=== PATIENT | male | born 1955 | race Caucasian/White ===

== ENCOUNTER → 2018-02-19 | Outpatient (CLI) | payer MEDICARE, BC ==
[~2018-02-19] MED LIST: ALDACTAZIDE 251 EAC1 PO; ALDACTONE25 MG PO; AMLODIPINE BESYL5 MG PO; ANALGESIC325 MG PO; ASPIRIN325 PO; ASPIRIN81 M2 PO; ATACAND32 MG PO; AVELOX 400 MG400 MG PO; BACTRIM DS TAB1 EACH PO; CEFUROXIME500 MG PO; CHILDREN'S ASPI81 M1 PO; CINNAMON PO; COREG; COREG OR; CYCLOBENZAPRINE10 MG PO; CYMBALTA60 MG PO; DILAUDID2 M1 PO; DOXYCYCLINE 10100 MG PO; DUONEB 2.5-0.5 M3 ML IH; FENTANYL 1100 MCG/HR TP; FISH OIL 1,0001 EAC5 PO; FISHOIL; FLECTOR PATCH1 EA TP; HYDROCODONE-AP1 EAC1 PO; HYDROCODONE-AP1 EACH PO; K-DUR 20 MEQ T20 MEQ PO; KENALOG63 GM TP; KLOR-CON 1010 MEQ PO; LANTUS SC; LANTUS100 UNIT/M SUBQ; LIORESAL 10 MG10 MG PO; LOCOID 0.1% CRE15 GM TP; LYRICA 50 MG50 MG PO; MELATONIN5 M1 PO; MS CONTIN 60 MG60 M1 PO; MS CONTIN15 MG PO; NORVASC10 MG; NORVASC10 MG PO; NOVOLOG100 UNIT/1 SQ; NOVOLOG100 UNIT/1 SUBQ; OMEPRAZOLE20 MG PO; PRADAXA150 MG PO; PRILOSEC 20 MG20 MG PO; RYTHMOL SR225 MG; RYTHMOL225 MG PO; SIMVASTATIN40 MG PO; SORINE 80 MG TA80 M1 PO; TEKTURNA300 MG PO; VITAMIN C W/R1000 MG PO; VITAMIN D250000 UNIT PO; VITAMINC500 PO; VYTORIN 10-401 EACH PO; ZINC; ZINC CHELATE50 MG PO; lyrica PO; morphine PO
== END ==
LOC: M.CT 15:18
DX: K74.60 Unspecified cirrhosis of liver (principal); K57.30 Diverticulosis of large intestine without perforation or abscess without bleeding; R31.0 Gross hematuria; I25.10 Atherosclerotic heart disease of native coronary artery without angina pectoris; I48.91 Unspecified atrial fibrillation; I10 Essential (primary) hypertension; E11.9 Type 2 diabetes mellitus without complications

== ENCOUNTER 2018-02-27 16:41 | Inpatient (IN) | payer MEDICARE, BC ==
[~2018-02-27] VITALS: Ht 182.9 cm; Wt 125.2 kg
[~2018-02-27 16:41] MED LIST changes: -BACTRIM DS TAB1 EACH PO; -CEFUROXIME500 MG PO; -CHILDREN'S ASPI81 M1 PO; -DOXYCYCLINE 10100 MG PO; -LANTUS100 UNIT/M SUBQ; -LIORESAL 10 MG10 MG PO; -MELATONIN5 M1 PO; -MS CONTIN15 MG PO; -NORVASC10 MG; -NOVOLOG100 UNIT/1 SUBQ; -RYTHMOL SR225 MG; -SORINE 80 MG TA80 M1 PO
[2018-02-27 17:35] VITALS: BP 124/65
[2018-02-27] MEDS ORDERED: LIORESAL 10 MG10 MG PO (18:02)
[2018-02-27] MEDS ORDERED: MELATONIN5 M1 PO (18:07)
--- NOTE | 2018-02-27 18:17 | NUR ---
PT DIRECT ADMIT PT ADMITTED FROM PHYSICIANS OFFICE GONE IN FOR ELEVATED BLOOD PRESSURE AND LEFT LEG REDNESS WITH WARMTH AND PAIN, PT IS UP WITH SBA PT C/O DIZZINESS PT IS NOT A FALL RISK WAS EDUCATED TO CALL FOR ASSISTANCE AND NOT AMBULATE BY SELF PT HAS INTERNAL PAIN PUMP WITH MORPHINE PT C/O PAIN CHRONIC IN BACK WHICH WAS FUSED PT RIGHT 2 TOES AMPUTATED PT STATES TAILBONE HAS BEEN REMOVED PT IS ALERT AND ORIENTED X 4 PT HAS NUMBNESS IN FINGERS PT PT STATES WAS RECENTLY PLACED IN FACILITY PERMANTELY WAS CLEANING OUT CLOSET AND HAD DIZZINESS BLOOD PRESSURE ELEVATED AND LEGS STARTED HURTING, PT IN ON BLOOD THINNER FOR IRREGULAR HEART RHYTHMN, WILL CONTINUE TO MONITOR
[2018-02-27 18:57] LABS: HEMATOCRIT 32.9 % (42.0-52.0); HEMOGLOBIN 11.3 gm/dL (14.0-18.0); MCH 30.6 pg (26.0-34.0); MCHC 34.4 g/dL (28.0-37.0); MCV 89.2 fL (80.0-100.0); MPV 8.3 fl. (7.2-11.1); NUCLEATED RBCS 0 /100WBC; PLATELET COUNT* 232 thou/uL (150-400); RBC 3.68 mil/uL (4.50-6.00); RDW-CV 14.6 % (10.5-14.5); WBC 7.6 thou/uL (4.0-11.0)
[2018-02-27 19:03] LABS: CALCIUM 8.3 mg/dL (8.5-10.1); CREATININE 1.7 mg/dL (0.6-1.3); POTASSIUM 3.7 mmol/L (3.5-5.1)
[2018-02-27 19:07] LABS: TOTAL BILIRUBIN 0.8 mg/dL (<0.1-1.0); TOTAL PROTEIN 6.4 g/dL (6.4-8.2)
[2018-02-27 19:24] LABS: ABSOLUTE BASOPHILS 0.2 thou/uL (0.0-0.2); ABSOLUTE EOSINOPHILS 0.8 thou/uL (0.0-0.7); ABSOLUTE LYMPHOCYTES 0.5 thou/uL (0.8-5.3); ABSOLUTE MONOCYTES 0.8 thou/uL (0.0-1.2); ABSOLUTE NEUTROPHILS 5.4 thou/uL (1.6-8.1)
[2018-02-27 19:27] LABS: PLATELET ESTIMATE ADEQUATE
[2018-02-27 20:00] VITALS: BP 104/50
[2018-02-28] VITALS (7 sets, daily range): BP systolic 104–121; BP diastolic 46–64
--- NOTE | 2018-02-28 00:13 | NUR ---
ORDERS OBTAINED FOR BIPAP AFTER PATIENT EXPRESSED CONCERN FOR NOT HAVING REMEBERING TO BRING HOME UNIT HE FURTHER STATES THAT THERE IS NO ONE THAT CAN BRING HIS UNIT TO HIM. WHEN RT ENTERED TO SET UP BIPAP TO HIM THE PATIENT REFUSED STATING HE WAS ONLY GOING TO BE HERE A COUPLE OF DAYS HE WENT ON TO REQUEST O2 NC FOR USE AT NIGHT WILL CONTINUE TO MONITOR
[2018-02-28 05:52] LABS: HEMATOCRIT 33.3 % (42.0-52.0); HEMOGLOBIN 11.4 gm/dL (14.0-18.0); MCH 30.7 pg (26.0-34.0); MCHC 34.2 g/dL (28.0-37.0); MCV 89.8 fL (80.0-100.0); MPV 8.3 fl. (7.2-11.1); RBC 3.7 mil/uL (4.50-6.00); RDW-CV 14.4 % (10.5-14.5); WBC 5.7 thou/uL (4.0-11.0)
[2018-02-28 06:30] LABS: CALCIUM 7.9 mg/dL (8.5-10.1); CREATININE 1.6 mg/dL (0.6-1.3); MAGNESIUM 2.2 mg/dL (1.8-2.4); POTASSIUM 3.6 mmol/L (3.5-5.1)
--- NOTE | 2018-02-28 07:03 | NUR ---
ASSUMED CARE OF PATIENT AT 1900 THE PATIENT REMAINS AFIB/AFLUTTER ON THE MONITOR O2 SAT MAINTAINED ON RA CONTINUES TO BE UP WITH ASSIST OF 1 STANDBY TO THE BATHROOM ROUTINE REGIMEN CONTINUES TO BE EFFECTIVE FOR SX MANAGEMENT PATIENT CONTINUES TOWARDS GOALS EKG OBTAINED DURING INVESTIGATIONS MANAGER DENIES ACUTE CX PAIN,SOA ,N/V SAFETY INTERVENTIONS CONTINUE BED LOWERED WHEELS LOCKED CALL LIGHT IN REACH SIDE RAILS UP REPORT TO BE GIVEN TO ONCBRANDIN RN
--- NOTE | 2018-02-28 13:08 | NUR ---
ASSUMED PT CARE AT 0700 PT IS ALERT AND ORIENTED X 4 PT HAD PAIN MEDS ON PREVIOUS SHIFT PT HAS DIFFICULTY STAYING AWAKE PT COULD NOT REMEMBER BASIC INSTRUCTIONS OR REMEMBER CARE GIVEN SUCH VITAL SIGNS TAKEN OR INSULIN GIVEN, PT HAS INTERNAL PAIN PUMP FILLED WITH MORPHINE PT HAS PO MORPHINE PRN WALKED INTO PT ROOM AND PT WOULD NOT WAKE UP PT IS GROGGY PT HAS BEEN EDUCATED MULTIPLE TIMED ABOUT CALLING STAFF FOR ASSISTANCE BEFORE AMBULATING AND THE PURPOSE OF THE BED ALARM PT IS A FALL RISK PT IS TURNING OFF BED ALARM HAS BEEN EDUCATED THAT PT AND FAMILY ARE NOT TO TURN OFF ALARM PT STATES UNDERSTANDING AND TURNS OFF ALARM, PT DOES NOT FOLLOW INSTRUCTIONS WILL PULL BATHROOM CALL LIGHT AND WALK SELF BACK TO BED, PT REFUSED BIPAP ON PREVIOUS SHIFT AND CPAP WAS LEFT AT HOME PT ASKED FOR PAIN MEDS AND THIS NURSE EDUCATED PT ON PT RESPONSE TO PAIN MANAGEMENT PT UPSET AFTER DISCUSSION WITH PHYSICIAN DESICION WAS MADE NOT TO GIVE MORE NARCOTICS UNTIL PT USES BIPAP OR CPAP WILL CONTINUE TO MONITOR
--- NOTE | 2018-02-28 14:37 | EKG ---
[place] [address] ELECTROCARDIOGRAM REPORT Name: NAVA SANTOS Room: [address] ADM IN M.R.#: [id number] Admission: 02/27/18 Attend Phys: Radha Gandara MD Discharge: Date of : 51 Report #: [id number] THIS REPORT FOR: //name// [facility] Test Date: 2018-02-27 Test Time: 20:57:49 Pat Name: NAVA SANTOS Department: Room: [address] Gender: M Vp Customer Development: BENJAMIN : 1955 Requested By: Radha Gandara Order Number: [id number] Reading MD: Brandin Ward Measurements Intervals [place] Rate: 63 P: [place]: QRS: 25 QRSD: 95 T: 46 QT: 499 QTc: 511 Interpretive Statements Atrial flutter with predominant 4:1 AV block Inferior infarct, acute (LCx) ST elevation, consider anterolateral injury Prolonged QT interval Compared to ECG 08/10/2017 02:59:53 Myocardial infarct finding now present ST (T wave) deviation now present Left ventricular hypertrophy no longer present Electronically Signed On 02-28-2018 14:36:59 CDT by Brandin Ward [email or web address] <ELECTRONICALLY SIGNED> By: Verito Ward MD, FAC 02/28/18 1436 56 56 Verito Ward MD, [facility] /EPI
--- NOTE | 2018-02-28 14:37 | EKG ---
[place] [address] ELECTROCARDIOGRAM REPORT Name: NAVA SANTOS Room: [address] ADM IN M.R.#: [id number] Admission: 02/27/18 Attend Phys: Radha Gandara MD Discharge: Date of : 51 Report #: [id number] THIS REPORT FOR: //name// [facility] Test Date: 2018-02-27 Test Time: 20:58:40 Pat Name: NAVA SANTOS Department: Room: [address] Gender: M Assistant Gm Of Content & Delivery: BENJAMIN : 1955 Requested By: Radha Gandara Order Number: [id number] Reading MD: Brandin Ward Measurements Intervals [place] Rate: 96 P: [place]: QRS: 32 QRSD: 93 T: 50 QT: 503 QTc: 636 Interpretive Statements Atrial fibrillation Ventricular tachycardia, unsustained Inferior infarct, acute (LCx) ST elevation, consider anterolateral injury Prolonged QT interval Compared to ECG 08/10/2017 02:59:53 Ventricular tachycardia now present Myocardial infarct finding now present ST (T wave) deviation now present Atrial flutter no longer present AV block, advanced (high-grade) no longer present Left ventricular hypertrophy no longer present Electronically Signed On 02-28-2018 14:37:09 CDT by Brandin Ward [email or web address] <ELECTRONICALLY SIGNED> By: Verito Wadr MD, [facility] 02/28/181436 57 57 Verito Ward MD, [facility] /EPI
[2018-03-01 04:00] VITALS: BP 133/77
--- NOTE | 2018-03-01 04:01 | NUR ---
ASSUMED PT CARE AT 1930, PT IS A&OX4, PT IS TRACING AFIB,NSR ON THE MONITOR, ON 2L NC. PT IS ON A CONT PULSE OX MONITOR. PT HAS IVF INFUSING PER MAR. PT HAS CELLULITITS TO TO LEFT LOWER LEG. PT C/O OF PAIN TO HIPS, PRN PAIN MEDICATIONS GIVEN PER MAR. PT IS UP WITH ONE TO THE BR. PT HAS IVF IFNUSING PER JAN. BED IN LOW POSITION, CALL LIGHT IN REACH, BED ALARM ON, YELLOW ARM BAND AND SOCKS IN PLACE, HOURLY ROUNDING COMPLETED FOR PT SAFETY THIS SHIFT.
[2018-03-01 09:00] VITALS: BP 115/63
--- NOTE | 2018-03-01 10:55 | NUR ---
ASSUMED PT CARE AT 0730, FULL ASSESMENT DONE CHARTED. PT A/O X4, ANXIOUS AT TIMES. PT C/O PAIN IN LEFT HIP, STATES HE THINKS IT IS SWOLLEN, NO APPARENT SWELLING NOTICED BY THIS NURSE. PT STATES HE IS WANTING TO GO HOME TODAY. PT ON CONTINUOUS O2 MONITOR. SATS 98% ON 2L NC. MEDS GIVEN PER JAN. FALL PRECATUIONS IN PLACE. REVIEWED FALL PRECATUIOINS WITH PT. PT VERBALIZED UNDERSTANDING. WILL CONTINUE WITH PLAN OF CARE.
[2018-03-01 12:02] VITALS: BP 128/69
[2018-03-01] MEDS ORDERED: DOXYCYCLINE 10100 MG PO (12:23)
[2018-03-01 13:46] VITALS: BP 128/69
[2018-04-17] MEDS ORDERED: SORINE 80 MG TA80 M1 PO (09:40)
== END 2018-03-01 15:09 | disposition home or self-care (01) | DRG 300 ==
LOC: M.2W 16:41
PROVIDERS: ADMIT Internal Medicine
DX: I87.2 Venous insufficiency (chronic) (peripheral) (principal); L03.116 Cellulitis of left lower limb; L03.115 Cellulitis of right lower limb; E11.22 Type 2 diabetes mellitus with diabetic chronic kidney disease; G47.33 Obstructive sleep apnea (adult) (pediatric); N18.9 Chronic kidney disease, unspecified; E11.40 Type 2 diabetes mellitus with diabetic neuropathy, unspecified; I87.8 Other specified disorders of veins; E66.01 Morbid (severe) obesity due to excess calories; M19.90 Unspecified osteoarthritis, unspecified site; I27.20 Pulmonary hypertension, unspecified; Z87.891 Personal history of nicotine dependence; Z79.4 Long term (current) use of insulin; Z79.82 Long term (current) use of aspirin; Z79.899 Other long term (current) drug therapy

== ENCOUNTER 2018-03-17 21:10 | Inpatient (IN) | payer MEDICARE, BC ==
[~2018-03-17] VITALS: Ht 182.9 cm; Wt 131.1 kg
[~2018-03-17 21:10] MED LIST changes: +DOXYCYCLINE 10100 MG PO; +LIORESAL 10 MG10 MG PO; +MELATONIN5 M1 PO
[2018-03-17 21:12] VITALS: BP 138/41
[2018-03-17] MEDS ORDERED: VITAMINC500 PO (21:28)
[2018-03-17] MEDS ORDERED: NORVASC10 MG (21:33)
[2018-03-17] MEDS ORDERED: CHILDREN'S ASPI81 M1 PO (21:34)
[2018-03-17] MEDS ORDERED: LIORESAL 10 MG10 MG PO (21:35)
[2018-03-17] MEDS ORDERED: ATACAND32 MG PO (21:35)
[2018-03-17] MEDS ORDERED: PRADAXA150 MG PO (21:36)
[2018-03-17 21:37] LABS: HEMATOCRIT 36.4 % (42.0-52.0); MCH 29.9 pg (26.0-34.0); MCV 90.6 fL (80.0-100.0); MPV 8.2 fl. (7.2-11.1); NUCLEATED RBCS 0 /100WBC; PLATELET COUNT* 262 thou/uL (150-400); RBC 4.02 mil/uL (4.50-6.00); RDW-CV 14.1 % (10.5-14.5); WBC 20.1 thou/uL (4.0-11.0)
[2018-03-17] MEDS ORDERED: CYMBALTA60 MG PO (21:37)
[2018-03-17] MEDS ORDERED: VYTORIN 10-401 EACH PO (21:37)
[2018-03-17] MEDS ORDERED: NOVOLOG100 UNIT/1 SUBQ (21:38)
[2018-03-17] MEDS ORDERED: LANTUS100 UNIT/M SUBQ (21:38)
[2018-03-17] MEDS ORDERED: PRILOSEC 20 MG20 MG PO (21:39)
[2018-03-17] MEDS ORDERED: MELATONIN5 M1 PO (21:39)
[2018-03-17] MEDS ORDERED: RYTHMOL SR225 MG (21:40)
[2018-03-17] MEDS ORDERED: ALDACTAZIDE 251 EAC1 PO (21:41)
[2018-03-17 21:45] LABS: INR 1.4; PROTIME 13.7 Seconds (9.20-11.50)
[2018-03-17 21:51] LABS: CALCIUM 8.5 mg/dL (8.5-10.1); POTASSIUM 4.3 mmol/L (3.5-5.1)
[2018-03-17] MEDS ORDERED: MS CONTIN15 MG PO (21:52)
[2018-03-17 21:57] LABS: TOTAL BILIRUBIN 1.4 mg/dL (<0.1-1.0); TOTAL PROTEIN 6.6 g/dL (6.4-8.2)
[2018-03-17 22:01] LABS: TROPONIN-I LEVEL 0.67 ng/mL (<0.06)
[2018-03-17 22:19] LABS: ABSOLUTE EOSINOPHILS 0.2 thou/uL (0.0-0.7); ABSOLUTE LYMPHOCYTES 0.2 thou/uL (0.8-5.3); ABSOLUTE MONOCYTES 0.6 thou/uL (0.0-1.2); ABSOLUTE NEUTROPHILS 19.1 thou/uL (1.6-8.1)
[2018-03-17 22:20] LABS: PLATELET ESTIMATE ADEQUATE
[2018-03-18] VITALS (16 sets, daily range): BP systolic 98–132; BP diastolic 30–60
--- NOTE | 2018-03-18 01:53 | NUR ---
PT ADMITTED TO ICU ROOM #6 AT 0020 FOR SEPSIS, ACUTE RENAL FAILURE AND NON STEMI. PT ALERT AND ORIENTED X 4. PT DROWSEY AFTER RECIEVING IV MORPHINE AND ATIVAN IN ED. PT RECIEVING IV VANCOMYCIN FOR TREATMENT OF SEPSIS AND CELLULITIS OF LOWER EXTREMITIES. PT RECIEVED FLUID BOLUS IN ED, NORMAL SALINE INFUSING AT 100/HR. PT REPORTS BEING ON ORAL ANTIBIOTICS FOR TWO WEEKS PRIOR TO COMING TO ED. ORAL TEMP ON ARRIVAL 98.7. TEMP IN ED 102.8. PT RESTING QUIETLY IN BED, CALL LIGHT IN REACH.
--- NOTE | 2018-03-18 09:05 | NUR ---
CARDIOLOGY AND PRIMARY HAS ROUNDED ON PT. PT TRANSFERED TO TELE STATUS.HOME MEDS RESTARTED. HOUSE SUP AWARE.
--- NOTE | 2018-03-18 11:02 | NUR ---
WOUND CARE NOTE: CONSULT RECEIVED FOR LE CELLULITIS, SKIN BREAKDOWN. PATIENT PRESENTS WITH 2-3+ PITTING EDEMA TO BILATERAL LEGS WITH REDNESS CIRCUMFIRENTIALLY TO LOWER LEG, MIDDLE. HOT TO TOUCH. SMALL PINPOINT AREA TO THE RIGHT ANTERIOR LEG THAT IS WEEPING SEROUS FLUID. APPLIED OPTIFOAM AG OVER AREA. PLACED LOTION TO INTACT SKIN. PALPABLE PEDAL PULSES, WEAKER ON THE LEFT THAN RIGHT. WHEN APPLYING THE LOTION, PATIENT COMPLAINED OF SIGNIFICANT PAIN TO HIS LEFT CALF. SIGNIFICANT PAIN UPON PALPATION. PHYSICIAN NOTIFIED AND NEW ORDERS PLACED. APPLIED DOUBLE LAYER TUBIGRIPS BILATERALLY, BUT HAD NURSE REMOVE LEFT ONE UNTIL AFTER RESULTS OF ULTRASOUND. EDUCATED PATIENT ON IMPORTANCE OF KEEPING LEGS ELEVATED, STATED HE WAS GOING TO LAY FLAT. EDUCATED ON COMPRESSION THERAPY, COMMUNICATED UNDERSTANDING. RECOMMEND DOUBLE LAYER TUBIGRIP-REMOVE AND REPLACE DAILY ENCOURAGE ELEVATION OF BILATERAL LEGS TIGHT BLOOD GLUCOSE CONTROL ENCOURAGE GOOD NUTRITION/HYDRATION
--- NOTE | 2018-03-18 11:10 | EKG ---
[place] [address] ELECTROCARDIOGRAM REPORT Name: NAVA SANTOS Room: [address]#: [id number] Admission: 03/17/18 Attend Phys: Radha Gandara MD Discharge: 03/21/18 Date of : 51 Report #: [id number] THIS REPORT FOR: //name// [facility] ED Test Date: 2018-03-17 Test Time: 21:18:51 Pat Name: NAVA SANTOS Department: Room: Gender: Mortgage Consultant: TIM Fowler : 1955 Requested By: Mervin Carrion Order Number: [id number] MD: Golden Crenshaw Measurements Intervals [place] Rate: 69 P: -3 GA: 180 QRS: 5 QRSD: 83 T: 33 QT: 463 QTc: 496 Interpretive Statements Sinus rhythm RSR' in V1 or V2, probably normal variant Borderline prolonged QT interval No previous ECG available for comparison Electronically Signed On 03-18-2018 11:10:38 CDT by Golden Crenshaw [email or web address] <ELECTRONICALLY SIGNED> By: Golden Crenshaw MD, [facility] 03/18/18 1110 Golden Crenshaw MD, [facility] /EPI
--- NOTE | 2018-03-18 11:11 | EKG ---
[place] [address] ELECTROCARDIOGRAM REPORT Name: DANIELLENAVA Room: [address] IN [facility]#: [id number] Admission: 03/17/18 Attend Phys: Radha Gandara MD Discharge: 03/21/18 Date of : 51 Report #: [id number] THIS REPORT FOR: //name// [facility] ED Test Date: 2018-03-17 Test Time: 21:20:14 Pat Name: NAVA SANTOS Department: Room: [address] Gender: Judo Teacher: TIM Fowler : 1955 Requested By: Mervin Carrion Order Number: [id number] Jennifer MD: Golden Crenshaw Measurements Intervals [place] Rate: 69 P: 21 MD: 169 QRS: 7 QRSD: 86 T: 30 QT: 453 QTc: 486 Interpretive Statements Sinus rhythm Electronically Signed On 03-18-2018 11:11:02 CDT by Golden Crenshaw [email or web address] <ELECTRONICALLY SIGNED> By: Golden Crenshaw MD, [facility] 03/18/18 1111 212 19 Golden Crenshaw MD, [facility] /EPI
--- NOTE | 2018-03-18 11:53 | NUR ---
FAX SENT TO DR CATHERINE OFFICE PER DR CALVERT REQUEST, AWAITING RETURN FAX,
--- NOTE | 2018-03-18 13:32 | 2DMMODE ---
[place] [address] 2 D/M-MODE ECHOCARDIOGRAM Name: NAVA SANTOS Room: [address] IN [facility]#: [id number] Admission: 03/17/18 Attend Phys: Radha Gandara, Discharge: 03/21/18 Date of : 51 Date of Service: 03/18/18 1332 Report #: [id number] THIS REPORT FOR: //name// APPROVED REPORT Study performed: 03/18/2018 10:07:09 EXAM: Comprehensive 2D, Doppler, and color-flow Echocardiogram Patient Location: In-Patient Room #: 006 Status: routine BSA: 2.49 HR: 111 bpm BP: 109/52 mmHg Rhythm: Atrial Fibrillation Other Information Study Quality: Fair Indications Atrial Fibrillation Non STEMI Sepsis Echo Enhancing Agent Indication: Endocardial border delineation Agent(s) / Amount(s) Used: Optison 3 cc 2D Dimensions IVSd: 12.04 (7-11mm) LVOT Diam: 21.12 (18-24mm) LVDd: 49.67 mm PWd: 12.19 (7-11mm) Ascending Ao: 33.81 (22-36mm) LVDs: 24.65 (25-40mm) Aortic Root: 35.14 mm Volumes Left Atrial Volume (Systole) LA ESV Index: 25.60 mL/m2 Aortic Valve AoV Peak Jhonatan.: 1.59 m/s AO Peak Gr.: 10.10 mmHg LVOT Max P.17 mmHg AO Mean Gr.: 6.01 mmHg LVOT Mean P.93 mmHg LVOT Max V: 1.14 m/s AO V2 VTI: 25.61 cm LVOT Mean V: 0.79 m/[place] [address] 2 D/M-MODE ECHOCARDIOGRAM Name: NAVA SANTOS Room: [address] IN ..#: [id number] Admission: 03/17/18 Attend Phys: Radha Gandara, Discharge: 03/21/18 Date of : 51 Date of Service: 03/18/18 1332 Report #: [id number] ARLENE (VTI): 2.61 cm2 LVOT V1 VTI: 19.06 cm Mitral Valve E/A Ratio: 0.81 MV Decel. Time: 333.39 ms MV E Max Jhonatan.: 0.91 m/s MV PHT: 96.68 ms MVA (PHT): 2.28 cm2 TDI E/Lateral E': 5.06 E/Medial E': 7.58 Medial E' Jhonatan.: 0.12 m/s Lateral E' Jhonatan.: 0.18 m/s Pulmonary Valve PV Peak Jhonatan.: 1.14 m/s PV Peak Gr.: 5.17 mmHg Tricuspid Valve TR Peak Gr.: 26.10 mmHg RVSP: 31.00 mmHg Left Ventricle The left ventricle is normal size. There is normal LV segmental wall motion. Mild concentric left ventricular hypertrophy. Left ventricular systolic function is normal. The left ventricular ejection fraction is within the normal range. LVEF is 65-70%. This study is not technically sufficient to allow evaluation of the LV diastolic function due to atrial fibrillation. Right Ventricle The right ventricle is normal size. The right ventricular systolic function is normal. Atria The left atrium size is normal. The right atrium size is normal. Aortic Valve The aortic valve is normal in structure. No aortic regurgitation is present. There is no aortic valvular stenosis. Mitral Valve The mitral valve is normal in structure. There is no mitral valve regurgitation noted. No evidence of mitral valve stenosis. Tricuspid Valve The tricuspid valve is [place] [address] 2 D/M-MODE ECHOCARDIOGRAM Name: NAVA SANTOS Tash Room: [address]#: [id number] Admission: 03/17/18 Attend Phys: Radha Gandara, Discharge: 03/21/18 Date of : 51 Date of Service: 03/18/18 1332 Report #: [id number] regurgitation. The RVSP is 30-35 mmHg. Pulmonic Valve The pulmonary valve is normal in structure. There is no pulmonic valvular regurgitation. Great Vessels The aortic root is normal in size. IVC is normal in size and collapses with >50% inspiration Pericardium There is no pericardial effusion. <Conclusion> LVEF is 65-70%. Mild concentric left ventricular hypertrophy. <ELECTRONICALLY SIGNED> By: Golden Crenshaw MD, FACC 03/18/18 133 31 31 Golden Crenshaw MD, FACC /INF
--- NOTE | 2018-03-18 13:40 | NUR ---
PT HAS HAD A FEW 3 SEC PAUSES, PT ATTEMPTS TO CONVERT TO SR. SOTALOL WAS GIVEN APPX 1 HOUR AGO.[facility] NURSE MADE AWARE.
--- NOTE | 2018-03-18 14:37 | NUR ---
DR CALVERT HERE TO SEE PT. DR SHOWN PAUSE CAPTURED ON MONITOR. NO NEW ORDERS.
--- NOTE | 2018-03-18 15:18 | EKG ---
[place] [address] ELECTROCARDIOGRAM REPORT Name: NAVA SANTOS Room: [address] IN [facility]#: [id number] Admission: 03/17/18 Attend Phys: Radha Gandara MD Discharge: 03/21/18 Date of : 51 Report #: [id number] THIS REPORT FOR: //name// [facility] Test Date: 2018-03-18 Test Time: 09:52:06 Pat Name: NAVA SANTOS Department: Room: [address] Gender: M Building Energy Consultant: UNK : 1955 Requested By: Golden Crenshaw Order Number: [id number] Jennifer MD: Golden Crenshaw Measurements Intervals [place] Rate: 110 P: [place]: QRS: 14 QRSD: 96 T: 28 QT: 376 QTc: 509 Interpretive Statements Atrial fibrillation Prolonged QT interval Compared to ECG 03/17/2018 21:20:14 Prolonged QT interval now present Sinus rhythm no longer present Electronically Signed On 03-18-2018 15:18:09 CDT by Golden Crenshaw [email or web address] <ELECTRONICALLY SIGNED> By: Golden Crenshaw MD, [facility] 03/18/18 1518 0952 0952 Golden Crenshaw MD, [facility] /EPI
--- NOTE | 2018-03-18 17:45 | NUR ---
PT TRANSPORTED VIA BED TO TELE WITH ALL PERSONAL BELONINGS. PER ORIN MCCORD REQUEST ACCU 155 AND WAS TREATED WITH INSULINE PER JAN. FAXED HOME MED LIST FROM [facility] THAT PT HAD AT HOME TO 2 WILD SR RN AWARE.
--- NOTE | 2018-03-18 18:20 | NUR ---
ICU TRANSFER TO 228 REPORT GIVEN PATIENT TO AND CALL LIGHT IN REACH AND INSTURCTION GIVEN NO REQUESTS AT THIS TIME NO C/O PAIN
[2018-03-19 04:26] VITALS: BP 123/59
[2018-03-19 04:46] LABS: HEMATOCRIT 32.4 % (42.0-52.0); HEMOGLOBIN 11.1 gm/dL (14.0-18.0); MCH 30.9 pg (26.0-34.0); MCHC 34.1 g/dL (28.0-37.0); MCV 90.7 fL (80.0-100.0); MPV 8.2 fl. (7.2-11.1); RBC 3.57 mil/uL (4.50-6.00); RDW-CV 14.3 % (10.5-14.5); WBC 9.8 thou/uL (4.0-11.0)
[2018-03-19 05:02] LABS: ALBUMIN 2.4 g/dL (3.4-5.0); CALCIUM 8.1 mg/dL (8.5-10.1); CREATININE 1.4 mg/dL (0.6-1.3); MAGNESIUM 1.7 mg/dL (1.8-2.4); POTASSIUM 3.8 mmol/L (3.5-5.1); TOTAL BILIRUBIN 1.4 mg/dL (<0.1-1.0); TOTAL PROTEIN 5.7 g/dL (6.4-8.2)
[2018-03-19 05:12] LABS: TROPONIN-I LEVEL 0.6 ng/mL (<0.06)
--- NOTE | 2018-03-19 05:39 | NUR ---
PATIENT RESTED IN BED. PATIENT DID NOT SHOW ACUTE CHANGES, PATEINT DID NOT SHOW SIGNS OF DISTRESS. FALL PRECAUTIONS IN PLACE, BED ALARM ON, CALL LIGHT WITHIN IN REACH.
--- NOTE | 2018-03-19 07:20 | NUR ---
CHANGE OF SHIFT BEDSIDE REPORT GIVEN PATIENT SEEN AT BEDSIDE, ASLEEP ASSUMED PATIENT CARE
--- NOTE | 2018-03-19 07:23 | NUR ---
Patient complain of chest pain. EKG done, doctor ez notified, nitro ordered. Doctor bruce notified, increase morphine ordered, see orders. Patient pain completely relieved with nitro.
[2018-03-19 08:00] VITALS: BP 136/60
--- NOTE | 2018-03-19 09:01 | CON ---
[address] [address] CONSULTATION Name: NAVA SANTOS Room: [address] IN ..#: [id number] Admission: 03/17/18 Attend Phys: Radha Gandara MD Discharge: 03/21/18 Date of : 51 Report #: [id number] THIS REPORT FOR: //name// CC: ABDIAS physician/PCP Radha Duarte DO DATE OF SERVICE: 03/18/2018 HISTORY OF PRESENT ILLNESS: The patient is a 62-year-old white male who I was asked to see in the hospital today because of his history of atrial fibrillation. The history was obtained from the patient. There are minimal old records available. The patient has a long history of hypertension and diabetes. He is also morbidly obese, being 6 feet tall and weighing 270 pounds. 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 The patient has a history of atrial fibrillation in the past. He has been followed by Dr. Hines over at [place]. He apparently has never required cardioversion. He states he did have a heart catheterization and was found to have no significant coronary artery disease. It is unclear whether he had an ablation or not. He states he has been anticoagulated with Pradaxa for the past 3 years. He has also been on sotalol for about 3 years. He does have occasional skipped heartbeat. He has had intermittent atrial fibrillation. He last saw Dr. Hines about 6 months ago. The patient has a history of chronic edema of his feet. He is followed by a midwife. He has had toes amputated in the past. He denies a history of PAD. He recently developed cellulitis and was placed on antibiotics a couple of weeks ago. However, yesterday he felt lightheaded with having chills and fell. He could not get up. An ambulance was called and he was brought here to [place] and admitted. I was asked to see him for further evaluation and treatment. He denies any history of myocardial infarction or chest pain. He has been short of breath. No syncope. PAST MEDICAL HISTORY: Otherwise significant for cholecystectomy, tonsillectomy, back surgery, he has chronic back pain, has a pain pump implanted in the past at [facility] in [place] where he goes to the pain clinic. He has a history of hypertension and diabetes. MEDICATIONS: Consists of the following: He is on amlodipine, aspirin, baclofen, , Pradaxa, Cymbalta, Vytorin, insulin, omeprazole, spironolactone, and sotalol. ALLERGIES: He has intolerance to NIACIN. FAMILY HISTORY: Unknown. He is adopted. SOCIAL HISTORY: He is , lives on a farm with his . Quit smoking years ago, rarely smokes cigar. [place] [address] CONSULTATION Name: NAVA SANTOS Room: [address]#: [id number] Admission: 03/17/18 Attend Phys: Radha Gandara MD Discharge: 03/21/18 Date of : 51 Report #: [id number] REVIEW OF SYSTEMS: He has sleep apnea, uses CPAP. No history of stroke or asthma. He had previous endoscopy, found to have a peptic ulcer. He has had colonoscopy. He had hepatitis C, which was treated in the past. No kidney disease. No cancer. No psychiatric illness. PHYSICAL EXAMINATION: GENERAL: Revealed a large middle-aged male, lying in bed. He appeared in no acute distress. VITAL SIGNS: He had a blood pressure on admission last night of 130/60, pulse is 80, and temperature 102. HEENT: He was anicteric. Conjunctivae pink. Mucous members appear moist. NECK: Veins do not appear distended. No carotid bruits. CHEST: Clear to auscultation. HEART: Regular rate and rhythm, no significant murmurs. ABDOMEN: Obese, soft, nontender. EXTREMITIES: He had edema below the mid tibial area. His anterior tibial areas were erythematous. Dorsalis pedis pulse 1+ on the left, cannot be palpated on the right. SKIN: Warm, dry. NEUROLOGIC: He is very slow moving. PSYCHIATRIC: His mood appeared somewhat depressed. His ECG on admission showed a sinus rhythm. There was no ST or T-wave change. His workup last night in the emergency room, he had a portable chest x-ray that showed normal heart size and clear lung chavez. CT scan of the head without contrast showed no acute abnormality. His lab work, sodium 135, BUN 19, creatinine was 2.0. Bilirubin 1.4, albumin 3.0. Troponin 0.67. BNP 1303. White blood cell count 20,000, hemoglobin 12. IMPRESSION AND RECOMMENDATIONS: 1. History of atrial fibrillation. The patient has been chronically anticoagulated with Pradaxa, although I would decrease the dose to 75 mg twice daily because of his kidney disease. I would decrease sotalol to every 24 hours because of his renal insufficiency. I will attempt to obtain records from his beauty advisor at [place]. 2. Dae-UL-yhxaftdmz myocardial infarction. I will attempt to obtain records as the patient stated he had a previous heart catheterization at [facility]. No history of angina. I would not recommend cardiac catheterization or stress testing at this time. We would obtain an echocardiogram. 3. Diabetes. 4. Hypertension. The patient has been on a calcium jorge, ARB. 5. Diabetes. 6. Cellulitis. 7. Kidney disease. 8. History of hepatitis C. [address] [address] CONSULTATION Name: NAVA SANTOS Room: [address]#: [id number] Admission: 03/17/18 Attend Phys: Radha Gandara MD Discharge: 03/21/18 Date of : 51 Report #: [id number] 9. Obesity. 10. Cellulitis. <ELECTRONICALLY SIGNED> By: Golden Crenshaw MD, FACC 03/19/18 0901 0843 [id number] Crenshaw MD, FACC /nt
--- NOTE | 2018-03-19 09:38 | EKG ---
[place] [address] ELECTROCARDIOGRAM REPORT Name: NAVA SANTOS Tash Room: [address] IN [facility]#: [id number] Admission: 03/17/18 Attend Phys: Radha Gandara MD Discharge: 03/21/18 Date of : 51 Report #: [id number] THIS REPORT FOR: //name// [facility] Test Date: 2018-03-19 Test Time: 06:25:46 Pat Name: NAVA SANTOS Department: Room: [address] Gender: Veneer Jointer: AJ : 1955 Requested By: Golden Crenshaw Order Number: [id number] Reading : Deejay Soliman Measurements Intervals [place] Rate: 70 P: -1 VT: 205 QRS: 3 QRSD: 96 T: 17 QT: 405 QTc: 437 Interpretive Statements Sinus rhythm Compared to ECG 03/18/2018 09:52:06 Atrial fibrillation no longer present Prolonged QT interval no longer present Electronically Signed On 03-19-2018 9:38:29 CDT by Deejay Soliman [email or web address] <ELECTRONICALLY SIGNED> By: Deejay Soliman MD, [facility] 03/19/18 0938 0625 Deejay Soliman MD, [facility] /EPI
[2018-03-19 11:56] VITALS: BP 148/65
[2018-03-19 12:26] VITALS: BP 148/65
[2018-03-19 12:48] LABS: CALCIUM 8.7 mg/dL (8.5-10.1); CREATININE 1.3 mg/dL (0.6-1.3); POTASSIUM 3.7 mmol/L (3.5-5.1)
[2018-03-19 15:14] VITALS: BP 121/49
--- NOTE | 2018-03-19 15:36 | NUR ---
SW met with pt to complete initial assessment, introduce self and CM role. Pt sleepy but alert enough to answer questions and oriented. Pt lives at home alone. Pt [place]. Pt has 2 daughters who pt says are supportive. Pt said that his goal is to be home independent and feels that he will be safe. Pt has no history of HH or SNF. Pt does not have any DME. Pt said that he might need a cane. SW/CM to continue to follow.
--- NOTE | 2018-03-19 18:52 | NUR ---
PATIENT REMAINS A AND O X 4 SB 50S THIS PM RA GOOD APPETITE LAST BM UNKNOWN GOOD UO, UNMEASURED UP WITH 1 ASSIST BLE RED CELLULITIS IV L FA 22 GA SL ACCUCHECKS 132/156/169 ORDERS FOR NPO AFTER [facility] CATH 5/4 C/O PAIN BUT SB WILL NEED TO WAIT FOR HR TO INCREASE AND PATIENT INFORMED, WILL FOLLOW UP ON REF SCDS
[2018-03-19 20:00] VITALS: BP 117/61
[2018-03-20] VITALS (13 sets, daily range): BP systolic 109–148; BP diastolic 39–86
--- NOTE | 2018-03-20 01:38 | NUR ---
PATIENT COMPLAIN OF CHEST PAIN , SCALE 9 OUT 0F 10. TWO NITROGLYCERIN WERE GIVEN. PATIENT STATES PAIN IS COMPLETELY RESOLVED AFTER SECOND NITROGLYCERIN.
[2018-03-20 04:26] LABS: HEMATOCRIT 31.8 % (42.0-52.0); HEMOGLOBIN 10.7 gm/dL (14.0-18.0); MCH 30.5 pg (26.0-34.0); MCHC 33.8 g/dL (28.0-37.0); MCV 90.3 fL (80.0-100.0); RBC 3.52 mil/uL (4.50-6.00); RDW-CV 14.3 % (10.5-14.5)
--- NOTE | 2018-03-20 04:27 | NUR ---
PATIENT RESTED IN BED. CHEST PAIN WAS TREATED. EKG DONE, PATIENT BRADYCARDIA, 48-52 HEART RATE. PATIENT IS NPO, PATIENT TO RECIEVE CATH LATER TOADY. FALL PRECAUTIONS IN PLACE, CALL LIGHT WITHIN REACH, HOURLY ROUNDING OBSERVED, BED ALARM ON.
[2018-03-20 05:12] LABS: ALBUMIN 2.6 g/dL (3.4-5.0); ALKALINE PHOSPHATASE 91 U/L (46-116); ANION GAP 5 mmol/L (7-16); BUN 19 mg/dL (7-18); CALCIUM 8.4 mg/dL (8.5-10.1); CHLORIDE 99 mmol/L (98-107); CHOLESTEROL 83 mg/dL (<200); CO2 28 mmol/L (21-32); CREATININE 1.3 mg/dL (0.6-1.3); GLUCOSE 114 mg/dL (70-99); HDL CHOLESTEROL 20 mg/dL (>40); LDL CHOLESTEROL 44 mg/dL (<100); MAGNESIUM 1.9 mg/dL (1.8-2.4); POTASSIUM 3.9 mmol/L (3.5-5.1); SGOT 26 U/L (15-37); SGPT 26 U/L (30-65); SODIUM 132 mmol/L (136-145); TC:HDL 4.2 Ratio (Not establshd); TOTAL BILIRUBIN 1.1 mg/dL (<0.1-1.0); TOTAL PROTEIN 6.2 g/dL (6.4-8.2); TRIGLYCERIDE 95 mg/dL (<150); VLDL 19 mg/dL (<40)
[2018-03-20 05:15] LABS: SERUM ASSESSMENT CLEAR
--- NOTE | 2018-03-20 11:04 | EKG ---
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 : 1955 Requested By: Radha Gandara Order Number: [id number] MD: Golden Crenshaw Measurements Intervals [place] Rate: 51 P: -14 [place]: 174 QRS: 4 QRSD: 97 T: 16 QT: 503 QTc: 464 Interpretive Statements Sinus bradycardia Baseline wander in lead(s) I,II,III,aVR,aVL,V3,V4 Compared to ECG 03/19/2018 06:25:46 rate slowed Electronically Signed On 03-20-2018 11:03:50 CDT by Golden Crenshaw [email or web address] <ELECTRONICALLY SIGNED> By: Golden Crenshaw MD, [facility] 03/20/18 1103 0240 0240 Golden Crenshaw MD, [facility] /EPI
--- NOTE | 2018-03-20 11:06 | EKG ---
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 03/20/18 1106 0955 0955 Golden Crenshaw MD, FACC /EPI
--- NOTE | 2018-03-20 15:27 | CARD ---
[address] [address] CARDIAC CATH REPORT Name: NAVA SANTOS Tash Room: [address] IN [facility].#: [id number] Admission: 03/17/18 Attend Phys: Radha Gandara MD Discharge: 03/21/18 Date of : 51 Report #: [id number] THIS REPORT FOR: //name// APPROVED REPORT Study performed: 03/20/2018 11:03:28 Patient Details Patient Status: IN Room #: The patient is a 62 year-old male Event Personnel Golden Crenshaw Marketing Program Manager, Belem Bernard RN RN, Ally Mason RTR Monitor, Rosie Curiel Procedures Performed Art Access - R radial artery Left Heart Cath w/LT VGram [id number] LHCLV , FFR Indication Non-STEMI , Atrial fibrillation Risk Factors Coronary Artery Disease Admission/Lab Medications/Medications given during procedure Heparin Unfract. Procedure Narrative The patient was brought electively to the Cardiac Catheterization Laboratory and was prepped and draped in a sterile manner. The right wrist was infiltrated with 2% Lidocaine subcutaneous anesthesia. A Slender Glidesheath sheath was inserted into the right radial artery. Coronary angiography was performed using coronary diagnostic catheters. The right coronary system was accessed and visualized with a Diagnostic catheter. The left coronary system was accessed and visualized with a Diagnostic catheter. The left ventricle was accessed and visualized with a Diagnostic catheter. Left ventricular/Aortic Valve gradient assessed via catheter pullback. Left ventriculogram was performed in BALLARD projection. Closure device was deployed with a 6 Fr vascband. The patient tolerated the procedure well and there were no complications associated with the procedure. There was no hematoma. Intraoperative [place] [address] CARDIAC CATH REPORT Name: NAVA SANTOS Room: [address]#: [id number] Admission: 03/17/18 Attend Phys: Radha Gandara MD Discharge: 03/21/18 Date of : 51 Report #: [id number] Sedation start time: 1137 Case end Time: 1210 Fentanyl 25 mcg Versed 2 mg Dose: 981 mGy Contrast Type and Amount: Visipaque 135 ml Coronary Angiography The patient's coronary anatomy is right dominant. Diagnostic Cath Left Main 0% stenosis LAD 0% stenosis Diagonal 1 medium sized vessel with a 50% mid stenosis Circumflex 40% mid stenosis OM2 medium sized vessel with an ostial 60% stenosis Right Coronary 50% proximal, 50% mid, and 30% distal stenosis Left Ventriculography The left ventricle is normal in size with normal contractility. The left ventricular ejection fraction is estimated to be 55-60%. Left ventricular wall motion abnormalities are not present. There is no mitral insufficiency. Hemodynamics The aortic pressure is 130/53 mmHg with a mean of 83 mmHg. The left ventricular pressure is 127/8 mmHg with a mean of mmHg. The left ventricular end diastolic pressure is 13 mmHg. There was no gradient across the aortic valve upon pullback. Pullback from the left ventricle to the aorta revealed no gradient across the aortic valve. Conclusion Mild cad manifested by a 50% stenosis noted in a diagonal branch of the lad, 50% stenosis noted of the proximal and mid rca, and a 60% ostial stenosis noted of the second marginal branch of the circumflex Recommendations Aggressive Medical Therapy <ELECTRONICALLY SIGNED> By: Golden Crenshaw MD, [facility] 03/20/18 1527 1527 1527Dashona Crenshaw MD, FACC /INF
--- NOTE | 2018-03-20 18:51 | NUR ---
HERMAN HAD CARDIAC CATH TODAY WITH NO INTERVENTION. VITAL SIGN STABLE. RIGHT WRIST ACCESS WITH NO S/S OF HEMATOMA OR BLEEDING. HOURLY ROUNDING COMPETD FOR PATIENT SAFETY
[2018-03-21] VITALS: BP 141/60
--- NOTE | 2018-03-21 02:51 | NUR ---
ASSUMED CARE OF PT AT 1900. PT IS ALERT AND ORIENTED. VSS. PERRLA. PT IS UP WITH STANDBY ASSIST. PTS HEART RATE IS IN THE 40'S AND 50'S. PT IS IN SINUS BRADYCARDIA. PT IS SLEEPING COMFORTABLY IN BED. RESPIRATIONS ARE EVEN AND NONLABORED. WILL CONTINUE TO MONITOR PT.
[2018-03-21 04:00] VITALS: BP 138/58
[2018-03-21 04:39] LABS: HEMATOCRIT 31.5 % (42.0-52.0); HEMOGLOBIN 10.8 gm/dL (14.0-18.0); MCH 30.8 pg (26.0-34.0); MCHC 34.2 g/dL (28.0-37.0); MPV 8.1 fl. (7.2-11.1); RBC 3.5 mil/uL (4.50-6.00); RDW-CV 14.2 % (10.5-14.5)
[2018-03-21 04:50] LABS: CALCIUM 8.5 mg/dL (8.5-10.1); CREATININE 1.2 mg/dL (0.6-1.3); POTASSIUM 3.8 mmol/L (3.5-5.1); TROPONIN-I LEVEL 0.35 ng/mL (<0.06)
[2018-03-21 08:00] VITALS: BP 136/68
[2018-03-21] MEDS ORDERED: BACTRIM DS TAB1 EACH PO (09:56)
[2018-03-21] MEDS ORDERED: SORINE 80 MG TA80 M1 PO (09:56)
--- NOTE | 2018-03-21 11:09 | NUR ---
Received order from physician to arrange home health. Pt given choices and is agreeable with [facility]. Called [facility] and faxed orders. No other needs identified. Home Health to begin on Friday.
[2018-03-21 11:36] VITALS: BP 136/68
[2018-03-21 12:28] VITALS: BP 148/65
--- NOTE | 2018-03-21 14:02 | NUR ---
ASSUMED CARE OF PT THIS AM ASSESSED AND DOCUMENTED. PT ON CARDIAC MONITER TRACING SB HR 51. PT IS A&O WITH NO C/O PAIN. VSS WNL. PT HAS BEEN ON ROOM AIR. PT WAS D/C'D TO HOME. ALL CONSULTS OK WITH D/C. EDUCATION GIVEN RE FOLLOW-UPS, MEDICATIONS, AND DRS ORDERS. SCRIPTS GIVEN. D/C CARDIAC MONITER AND IV. ALL BELONGINGS PACKED UP AND LEFT WITH PT ACCOMPANIED BY STAFF AND FRIEND.
[2018-04-17] MEDS ORDERED: SORINE 80 MG TA80 M1 PO (09:40)
== END 2018-03-21 14:00 | disposition home health service (06) | DRG 871 ==
LOC: M.ERS 21:10 → M.TBA-ER 22:41 → M.ERS 22:41 → M.ICU 23:14 → M.2W 23:14 → M.TBA-ER 23:14 → M.ICU 03-18 00:25 → M.2W 03-18 18:06
PROVIDERS: Family Medicine; Internal Medicine Cardiovascular Disease; ADMIT Internal Medicine
PROC: B2151ZZ Fluoroscopy of Left Heart using Low Osmolar Contrast (ICD-10-PCS; principal; 2018-03-20)
PROC: 4A023N7 Measurement of Cardiac Sampling and Pressure, Left Heart, Percutaneous Approach (ICD-10-PCS; principal; 2018-03-20)
PROC: B2111ZZ Fluoroscopy of Multiple Coronary Arteries using Low Osmolar Contrast (ICD-10-PCS; principal; 2018-03-20)
DX: A41.9 Sepsis, unspecified organism (principal); I21.4 Non-ST elevation (NSTEMI) myocardial infarction; N17.9 Acute kidney failure, unspecified; L03.116 Cellulitis of left lower limb; L03.115 Cellulitis of right lower limb; E78.00 Pure hypercholesterolemia, unspecified; I25.10 Atherosclerotic heart disease of native coronary artery without angina pectoris; I48.91 Unspecified atrial fibrillation; E11.22 Type 2 diabetes mellitus with diabetic chronic kidney disease; N18.9 Chronic kidney disease, unspecified; I87.8 Other specified disorders of veins; G89.29 Other chronic pain; M54.9 Dorsalgia, unspecified; G47.33 Obstructive sleep apnea (adult) (pediatric); E66.9 Obesity, unspecified; B19.20 Unspecified viral hepatitis C without hepatic coma; Z68.39 Body mass index [BMI] 39.0-39.9, adult; I25.2 Old myocardial infarction; Z90.49 Acquired absence of other specified parts of digestive tract; Z87.891 Personal history of nicotine dependence; Z86.73 Personal history of transient ischemic attack (TIA), and cerebral infarction without residual deficits; Z79.4 Long term (current) use of insulin; Z79.82 Long term (current) use of aspirin; Z79.899 Other long term (current) drug therapy; Z88.8 Allergy status to other drugs, medicaments and biological substances

== ENCOUNTER 2018-03-28 23:56 | Emergency (ER) | payer MEDICARE, BC ==
[~2018-03-28] VITALS: Ht 182.9 cm; Wt 125.2 kg
[~2018-03-28 23:56] MED LIST changes: +BACTRIM DS TAB1 EACH PO; +CHILDREN'S ASPI81 M1 PO; +LANTUS100 UNIT/M SUBQ; +MS CONTIN15 MG PO; +NORVASC10 MG; +NOVOLOG100 UNIT/1 SUBQ; +RYTHMOL SR225 MG; +SORINE 80 MG TA80 M1 PO
[2018-03-29 01:04] VITALS: BP 156/59
[2018-04-17] MEDS ORDERED: SORINE 80 MG TA80 M1 PO (09:40)
== END 2018-03-29 01:04 | disposition home or self-care (01) ==
LOC: M.ERS 23:56
DX: M25.511 Pain in right shoulder (principal); E11.9 Type 2 diabetes mellitus without complications; E78.00 Pure hypercholesterolemia, unspecified; F17.210 Nicotine dependence, cigarettes, uncomplicated; Z88.8 Allergy status to other drugs, medicaments and biological substances; Z86.73 Personal history of transient ischemic attack (TIA), and cerebral infarction without residual deficits; Z79.4 Long term (current) use of insulin

== ENCOUNTER → 2018-04-17 | Outpatient (CLI) | payer MEDICARE, BC ==
[~2018-04-17] MED LIST changes: +CEFUROXIME500 MG PO
[2018-04-17 08:36] VITALS: BP 140/56
--- NOTE | 2018-04-17 10:12 | EKG ---
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
== END ==
LOC: M.CL 08:22
DX: I48.91 Unspecified atrial fibrillation (principal); Z53.8 Procedure and treatment not carried out for other reasons; I12.9 Hypertensive chronic kidney disease with stage 1 through stage 4 chronic kidney disease, or unspecified chronic kidney disease; N18.6 End stage renal disease; E78.00 Pure hypercholesterolemia, unspecified; E11.22 Type 2 diabetes mellitus with diabetic chronic kidney disease; I25.2 Old myocardial infarction; G47.33 Obstructive sleep apnea (adult) (pediatric); Z98.890 Other specified postprocedural states; Z87.891 Personal history of nicotine dependence; Z79.899 Other long term (current) drug therapy; Z88.8 Allergy status to other drugs, medicaments and biological substances

== ENCOUNTER 2018-05-29 02:26 | Emergency (ER) | payer MEDICARE, BC ==
[~2018-05-29] VITALS: Ht 182.9 cm; Wt 124.7 kg
[~2018-05-29 02:26] MED LIST changes: -CEFUROXIME500 MG PO
[2018-05-29 05:31] VITALS: BP 144/66
== END 2018-05-29 05:32 | disposition home or self-care (01) ==
LOC: M.ERS 02:26
DX: S51.812A Laceration without foreign body of left forearm, initial encounter (principal); S09.8XXA Other specified injuries of head, initial encounter; E11.9 Type 2 diabetes mellitus without complications; E78.00 Pure hypercholesterolemia, unspecified; F17.210 Nicotine dependence, cigarettes, uncomplicated; Z86.73 Personal history of transient ischemic attack (TIA), and cerebral infarction without residual deficits; Z79.4 Long term (current) use of insulin; Z88.8 Allergy status to other drugs, medicaments and biological substances; W07.XXXA Fall from chair, initial encounter; Y93.89 Activity, other specified; Y92.89 Other specified places as the place of occurrence of the external cause; Y99.8 Other external cause status

== ENCOUNTER 2018-06-19 23:38 | Inpatient (IN) | payer MEDICARE, BC ==
[~2018-06-19] VITALS: Ht 182.9 cm; Wt 122.5 kg
[2018-06-19 23:39] VITALS: BP 139/49
[2018-06-20 00:23] LABS: CALCIUM 7.9 mg/dL (8.5-10.1); CREATININE 1.7 mg/dL (0.6-1.3); POTASSIUM 3.9 mmol/L (3.5-5.1)
[2018-06-20 00:28] LABS: ALBUMIN 3.4 g/dL (3.4-5.0); TOTAL PROTEIN 7.2 g/dL (6.4-8.2)
[2018-06-20 00:36] LABS: HEMATOCRIT 35.5 % (42.0-52.0); HEMOGLOBIN 11.5 gm/dL (14.0-18.0); MCH 28.2 pg (26.0-34.0); MCHC 32.4 g/dL (28.0-37.0); MPV 8.1 fl. (7.2-11.1); NUCLEATED RBCS 0 /100WBC; PLATELET COUNT* 266 thou/uL (150-400); RBC 4.08 mil/uL (4.50-6.00); RDW-CV 15.1 % (10.5-14.5)
[2018-06-20 01:22] LABS: URINE BILIRUBIN NEGATIVE (Negative); URINE BLOOD NEGATIVE (Negative); URINE CLARITY CLEAR; URINE COLOR YELLOW; URINE GLUCOSE-RANDOM NEGATIVE (Negative); URINE KETONES NEGATIVE (Negative); URINE LEUKOCYTES-REFLEX NEGATIVE (Negative); URINE NITRITE-REFLEX NEGATIVE (Negative); URINE PROTEIN NEGATIVE (Negative); URINE SPECIFIC GRAVITY <= 1.005 (1.005-1.030); URINE UROBILINOGEN 0.2 E.U./dl (0.2-1.0)
[2018-06-20 01:48] LABS: ABSOLUTE LYMPHOCYTES 0.5 thou/uL (0.8-5.3); ABSOLUTE MONOCYTES 0.5 thou/uL (0.0-1.2); PLATELET ESTIMATE ADEQUATE
[2018-06-20 01:49] LABS: ANISOCYTOSIS 1+; POLYCHROMASIA 1+
[2018-06-20 03:00] VITALS: BP 108/75
[2018-06-20 05:00] VITALS: BP 110/76
--- NOTE | 2018-06-20 05:20 | NUR ---
RECEIVED REPORT FROM VENKATA MCCORD AT ED.PT TRANSFERRED TO 205 VIA CART. PT A&OX4. ADMISSION HX & PHYSICAL ASSESSMENT COMPLETED AND CHARTED. VSS.PT ON RA WITH 94% O2 SAT. PT ON MED/SURG.PT UP WITH 1 ASSIST. IV LINE PATENT & INTACT. STARTED VANCOMYCIN PER JAN. CELLULITIS ON BOTH LOWER EXTREMETIES NOTED AND PHOTOS WERE TAKEN. PT COMPLAINED OF BACK & FOOT PAIN WITH PAIN SCALE OF 10/10. PT TEMP 101.3.PAIN MEDS & ANTIPYRETIC MED GIVEN PER JAN. ORIENTED TO ROOM & CALL LIGHT. CALL LIGHT WITHIN REACH. BED IN LOW POSITION. BED ALARM ON.
--- NOTE | 2018-06-20 06:19 | NUR ---
PT COMPLAINED OF FINGER PAIN WITH PAIN SCALE OF 10/10. PT WAS SCREAMING AND STATED CAN'T HANDLE THE PAIN-DR. GARCIA INFORMED WITH NEW ORDERS. PAIN MEDS GIVEN PER JAN.
[2018-06-20 08:00] VITALS: BP 93/53
--- NOTE | 2018-06-20 10:54 | NUR ---
ASSUMED RESPONSIBILITY OF PT THIS AM PT IS ALERT AND ORIENTED BUT IMPULSIVE AND YELLS OUT FREQUENTLY IN PAIN PT WILL STATE HE IS IN EXCRUTIATING PAIN WHILE CLOSING EYES AND FALLING ASLEEP STATES HIS BILAT HANDS ARE TINGLING AND BURNING WATCH TAKEN OFF D/T CUTTING OFF CIRCULATION WHICH IS THE HAND HE IS COMPLAINING OF MOST PT DOES NOT HAVE MUCH PAIN IN BACK PT HAD MOM CALL UP HERE AT DESK AND ASK QUESTIONS BUT WAS NOT IN INFORMATION ASKED PT FOR PERMISSION TO GIVE INFORMATION AND HE SAID YES BUT HE WAS ON THE PHONE WITH HER AT THAT TIME PT BECOMES VERY AGITATED AND STATES WE ARE NOT HELPING HIM AT ALL EXPLAINED TO PT WHAT THE PLAN WAS AND PT SEEMED TO CALM DOWN A BIT WILL CONT TO MONITOR
--- NOTE | 2018-06-20 12:30 | NUR ---
MET WITH PT AND HIS MOTHER/DYANA TO DISCUSS HOME SITUATION/DC PLANNING. PT LIVES ALONE AT THIS TIME, HIS IS IN [facility] GETTING REHAB HE STATES. HE IS HOPEFUL SHE WILL BE ABLE TO COME HOME SOON. PT USES CPAP AT HOME, OTHERWISE STATES HE HAS BEEN INDEPENDENT AND ACTIVE. HE HAS HAD HH IN THE PAST WITH [facility]. STATES HE HAD BEEN MANAGING HIS CELLULITIS AT HOME BUT CAME TO THE HOSPITAL D/T 'PAIN.' HIS IS DPOA. HE WANT TO BE SURE HIS MOTHER IS ABLE TO GET INFO AND ON HIS LIST. PT PLANS TO RETURN HOME AT DC. WILL FOLLOW
[2018-06-20 15:29] VITALS: BP 127/52
--- NOTE | 2018-06-20 17:55 | NUR ---
PT HAS BEEN RESTING SINCE FENTANYL IV CAME ON BOARD. PT STATES 'THIS HELPS ME SO MUCH I'M ACTUALLY SLEEPING' STILL COMPLAINS OF PAIN TO BILAT HANDS AND BACK PT IS DROWSY BUT RESPONDS APPROPRIATELY MUCH MORE CALM THAN FROM EARLIER
[2018-06-20 20:00] VITALS: BP 137/52
[2018-06-21 04:29] VITALS: BP 144/50
--- NOTE | 2018-06-21 04:33 | NUR ---
ASSUMED CARE OF PT AFTER REPORT AT 1930. PT A&OX4. VSS. PHYSICAL ASSESSMENT COMPLETED AND CHARTED. PT ON RA/ CPAP @ NIGHT WITH 96% O2 SAT. PT ON MEDSURG. PT REPORTED UP WITH 1 ASSIST BUT REMAINS ON BED ALL NIGHT. MRSA NASAL SWAB SENT TO LAB. PT COMPLAINED OF HAND & LOWER BACK PAIN WITH PAIN SCALE OF 9/10-PAIN MEDS GIVEN PER JAN. CALL LIGHT WITHIN REACH. BED IN LOW POSITION.
[2018-06-21 07:45] VITALS: BP 136/59
--- NOTE | 2018-06-21 07:45 | NUR ---
ASSUMED PT. CARE AND RECEIVED REPORT AT 0730. PT. A/OX4, VSS, PT. MED/SURG STATUS. ON RA @ 95%, WITH CPAP WHILE SLEEPING. PT. REPORTS LOWER BACK PAIN AND HAND TINGLING/NUMBNESS. FULL ASSESSMENT COMPLETED, REFER TO CHARTING. LE REDNESS REMAINS. PT. REPORTS ARMBANDS ARE TIGHTER THIS MORNING AND SOME UPPER ARM SWELLING IS PRESENT. CALL LIGHT IN REACH, WILL CONTINUE WITH PLAN OF CARE.
[2018-06-21 16:10] VITALS: BP 127/34
--- NOTE | 2018-06-21 18:36 | NUR ---
PT. STABLE THROUGH OUT SHIFT. IVF'S DC'D AND PT. GIVEN IV LASIX WITH GOOD OUTPUT. TREATED WITH PO PAIN MEDS ORDERED, GIVEN IV MED X1. PT. STATES ALL HIS HAND PAIN/NUMBNESS IS FROM THE PHYSICAL THERAPY SESSION AND MANIPULATION OF HIS NECK. PT. APPETITE POOR, HAD TO ENCOURAGE TO EAT LUNCH, WAS GIVEN INSULIN AND DID NOT WANT TO EAT AFTER. HOURLY ROUNDING COMPLETED THROUGH OUT THE DAY FOR PT. SAFETY.
[2018-06-21 20:00] VITALS: BP 112/45; BP 114/50
[2018-06-22 00:10] VITALS: BP 124/51
--- NOTE | 2018-06-22 03:28 | NUR ---
RESTING MOST OF NIGHT. CONT. ABX FOR CELLULITIS LE. ID HERE AT BEGINNING OF SHIFT. PATIENT RECEIVED IV PAIN MEDS ALONG WITH SCHEDULED MEDS. DENIES ANY FURTHER COMPLAINTS OF PAIN, DISCOMFORT OR SOA. CONT. WITH PLAN OF CARE AT THIS TIME.
[2018-06-22 04:13] VITALS: BP 159/92
[2018-06-22 05:07] LABS: ABSOLUTE BASOPHILS 0.1 thou/uL (0.0-0.2); ABSOLUTE EOSINOPHILS 0.6 thou/uL (0.0-0.7); ABSOLUTE LYMPHOCYTES 0.8 thou/uL (0.8-5.3); ABSOLUTE MONOCYTES 0.7 thou/uL (0.0-1.2); ABSOLUTE NEUTROPHILS 3.8 thou/uL (1.6-8.1); BASOPHILS 0.9 %; EOSINOPHILS 9.8 %; HEMATOCRIT 33.4 % (42.0-52.0); HEMOGLOBIN 10.9 gm/dL (14.0-18.0); LYMPHOCYTES 13.9 %; MCH 28.8 pg (26.0-34.0); MCHC 32.8 g/dL (28.0-37.0); MONOCYTES 12.4 %; NUCLEATED RBCS 0 /100WBC; PLATELET COUNT* 231 thou/uL (150-400); RBC 3.79 mil/uL (4.50-6.00); RDW-CV 15.5 % (10.5-14.5)
[2018-06-22 08:00] VITALS: BP 136/57
--- NOTE | 2018-06-22 11:29 | NUR ---
RECEVIED REPORT FROM DONNA MCCORD. ASSUMED CARE OF PT AROUND 0730. PT A&OX4, VSS, O2 SAT 97% ON HOME CPAP - PT WEARING DURING SLEEP. PT M/S STATUS. AM ASSESSMENT AND VITALS COMPLETED CHARTED. IV TO RIGHT WIRST INTACT AND SALINE LOCKED, FLUSHES WELL. PT REPORTS BACK AND BILATERAL HAND PAIN AT 6/10. IV PAIN MEDICATION GIVEN WITH RELIEF. PT STATES RIGHT HAND IS NUMB/TINGLING, SOME SWELLING NOTED. BILTERAL TUBIGRIPS PLACED. PT USING URINAL FREQUENTLY POST LASIX ADMINISTRATION. PT REFUSED BREAKFAST THIS AM, HELD RAPID ACTING INSULIN. PT CURRENTLY RESTING IN BED. BLE ELEVATED ON TWO PILLOWS. CALL LIGHT IS WITHIN REACH. HOURLY ROUNDING PERFORMED. FALL PRECAUTIONS ARE IN PLACE. WCTM.
--- NOTE | 2018-06-22 16:35 | NUR ---
PT TRANSFERING TO 116. REPORT GIVEN TO MARTINA MCCORD. PT REMAINS A&OX4. VSS. O2 SAT >90% ON RA. PT CONTINUING TO DIURESE, OUTPUT GOOD. PT APPETITE POOR. BILATERAL TUBIGRIPS REMAIN IN PLACE. ALL BELONGINGS GATHERED AND SENT DOWNSTAIRS WITH THE PT, INCLUDING ITEMS FROM PT ACCESS BOX. PT TRANSFERED TO ROOM 116 IN CHAIR WITH NURSING STAFF.
--- NOTE | 2018-06-22 18:16 | NUR ---
PT DOWN FROM TELE DENIES ANY PAIN NO CONCERNS AT THIS TIME ALERT AND ORIENTED SBA TO CHAIR DOES NOT WALK OFTEN
[2018-06-22 20:05] VITALS: BP 144/59
[2018-06-23] VITALS: BP 138/66
[2018-06-23 04:00] VITALS: BP 142/52
--- NOTE | 2018-06-23 05:07 | NUR ---
PATIENT REMAINS ALERT AND ORIENTED X4 THROUGHOUT SHIFT. VITAL SIGNS STABLE ON ROOM AIR. IV PATENT IN THE RIGHT WRIST SALINE LOCKED. CPAP HAS BEEN BROUGHT FROM HOME AND PATIENT APPLIED THROUGHOUT NIGHT. TRANSFERS WITH ASSIST X1 WITH THE GAITBELT TO THE RESTOOM. PAIN MANAGED WITH PO MEDICATION PER ORDERS. DENIES NAUSEA. REPOSITIONING SELF IN BED. RESTING COMFORTABLY THROUGHOUT NIGHT. HOURLY ROUNDING COMPLETE. CALL LIGHT WITHIN REACH. NURSING WILL CONTINUE TO MONITOR.
[2018-06-23] MEDS ORDERED: CEFUROXIME500 MG PO (07:54)
[2018-06-23 09:15] VITALS: BP 159/72
[2018-06-23 11:06] VITALS: BP 159/72
--- NOTE | 2018-06-23 12:00 | NUR ---
PT.TO DISCHARGE TODAY WITH HOME HEALTH NURSING. DISCUSSED WITH PT. HE HAD [facility]AR AND WANTS TO USE THEM AGAIN. HE SAID HE SEES AT [facility]. SPOKE WITH CAROLEE/JOSIE AND SHE ACCEPTED PT.ON SERVICE FOR HOME HEALTH. TOLD HER HE WAS GOING HOME TODAY. FAXED HER FACE SHEET,H&P,DISCHARGE SUMMARY AND FACE 2 FACE FORM. PT.SAID HIS RIDE WILL BE HERE ABOUT 3:00PM.
[2018-06-23 13:24] VITALS: BP 159/72
[2018-06-23 15:07] LABS: GLYCOHEMOGLOBIN (HGB A1C) 6.2 % (4.8-5.6)
--- NOTE | 2018-06-23 16:22 | NUR ---
ASSUMED CARE OF PATIENT AFTER MORNING REPORT. ALERT AND ORIENTED X4. ASSESSMENT COMPLETED AND CHARTED. VSS ON ROOM AIR. NO COMPLAINTS OF PAIN, NAUSEA OR SOA THROUGHOUT SHIFT. ANTIBIOTICS ADMINISTERED ORDERED, IV AND PO. BLOOD SUGARS MONITORED AND INSULIN GIVEN ORDERED. LOWER EXTREMITIES CLEANED AND REDRESSED WITH TUBIGRIPS THIS AFTERNOON WITH BACTROBAN APPLIED. HOME HEALTH SET UP FOR DRESSING CHANGES. PATIENT DISCHARGED AT 1615. ALL PERSONAL BELONGINGS, DISCHARGE PAPERWORK AND PRESCRPTION SENT WITH PATIENT.
--- NOTE | 2018-06-23 22:04 | CON ---
[address] [address] CONSULTATION Name: NAVA SANTOS Room: [address] IN [facility].#: [id number] Admission: 06/20/18 Attend Phys: Che Tomlinson Discharge: 06/23/18 Date of : 51 Report #: [id number] THIS REPORT FOR: //name// CC: ABDIAS physician/PCP Adrien Serrano DATE OF SERVICE: 06/21/2018 CONSULTATION: Infectious diseases. 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 The patient describes falling from a chair and hitting his head on a piece of furniture, which wrenched his neck. He has chronic low back pain, which has required a lumbar fusion and implantable morphine pump. The patient said he was getting physical therapy and the therapist did "deep tissue release" and afterwards, his pain flared up to the point he had to call 911 after the pain would not respond to all the medicine he had at home. When the patient arrived in the hospital, he was quite lethargic from the morphine, but still in excruciating pain. He was noted to have a fever and leukocytosis. Infectious disease consultation was requested. PAST MEDICAL HISTORY: Significant for diabetes, hypertension, hyperlipidemia. The patient has a history of atrial fibrillation, myocardial infarction, anxiety, depression, chronic back pain. The patient has a history of implantation of a morphine, baclofen pump. He says he is due for refill in approximately 3 days, although he was told he has about a 2-week al period before the pump is empty. He has L4-L5- S1 fusion in the back with an S1-S2 diskectomy. ALLERGIES: THE PATIENT HAS AN ALLERGY TO NIACIN. MEDICATION RECONCILIATION: Current medications are as follows: Spironolactone 50 mg daily, furosemide 80 mg IV push daily, ceftriaxone 15 mL 1 g daily, melatonin 5 mg at bedtime, Lipitor 40 mg at bedtime, apixaban 5 mg b.i.d., fentanyl 25 mcg IV q. 2 p.r.n., sotalol 160 mg b.i.d., Bactrim 1 tablet b.i.d., duloxetine 60 mg daily, ascorbic acid 500 mg daily, pregabalin 150 mg daily, insulin sliding scale, pantoprazole 40 mg daily, morphine, MS Contin 15 mg q. 12, baclofen 10 mg q.i.d. p.r.n., morphine IR 50 mg q.4h. p.r.n. FAMILY HISTORY: Noncontributory. SOCIAL HISTORY: The patient is . He did work for [employer], but has been disabled by back pain. The patient said he was a heavy smoker in the past, but quit many years ago. He went from cigarettes or cigars. Cigars became too expensive, so he quit. He did take up a pipe a few years ago, but quit [address] [place] [address] CONSULTATION Name: NAVA SANTOS Room: [address]#: [id number] Admission: 06/20/18 Attend Phys: Che Tomlinson Discharge: 06/23/18 Date of : 51 Report #: [id number] ago all tobacco use. The patient describes his alcohol consumption is moderate. He admits to past use of marijuana and amphetamines, but nothing recently. He says his morphine contract requires him to be free of other substances. REVIEW OF SYSTEMS: GENERAL: The patient is not complaining of fevers, chills, sweats. ENT: The patient denies headache. NECK: He has pain in the neck radiating with a firing pain to both hands, left greater than right. PULMONARY: The patient denies cough, chest pain, shortness of breath. CARDIOVASCULAR: He denies angina, syncope, palpitation. He denies nausea, vomiting, diarrhea, constipation. Denies urinary complaints. EXTREMITIES: He has the pain in his hands. He has also had pain in his low back going to his legs, which are more chronic. He says that he has had erythema and warmth for his left leg "for a while." He has had a chronic wound on the lateral left calf for several months. PHYSICAL EXAMINATION: GENERAL: The patient appears his stated age, alert, oriented, comfortable, not in any distress. VITAL SIGNS: Show maximum temperature 101.3. The patient was afebrile at the time of my examination. SKIN: Shows moderate venous stasis changes in both lower legs. The left leg has a superimposed acute cellulitis from the ankle to about two-thirds away to the knee. There is 1+ edema. There is 2+ heat. Moderate tenderness. There is a small 2 x 3 cm superficial wound in the lateral mid calf. The right foot demonstrates a surgical absence of the second and third toes with lateral deviation of the great toe creating a prominent bunion. ENT: Negative. NECK: Supple. HEART: Heart sounds normal. LUNGS: Clear. ABDOMEN: Belly obese (280 pounds), soft, not tender. LABORATORY DATA: Sodium is 127, potassium 3.9, chloride 93, bicarbonate 29, BUN 14, creatinine 1.7. Glucose has gone from 211 to 121. Liver function tests show mild elevation of alkaline phosphatase at 134. White count was 17,000, hemoglobin 11.5, platelet 266,000. Arterial and venous Dopplers are negative. Chest x-ray is negative. CT of the head is negative. CT of the spine is negative. IMPRESSION: Cellulitis associated with chronic venous stasis. I concur with Rocephin 1 g daily. We will use elevation and compression to help with the stasis. We will use Bactroban [place] [address] CONSULTATION Name: NAVA SANTOS Room: [address] IN [facility].#: [id number] Admission: 06/20/18 Attend Phys: Che Tomlinson Discharge: 06/23/18 Date of : 51 Report #: [id number] I appreciate the opportunity of input in the care of this pleasant gentleman. It is important we keep track of his pain pump as if it runs out of baclofen, there is a strong rebound effect. Unfortunately, with the pain pump, we will not be able to do MRI scanning of the back to further evaluate his back pain. For now, we will do antibiotics and local care of venous stasis with cellulitis. <ELECTRONICALLY SIGNED> By: Tra West MD 06/23/18 2204 [id number] esther Villa
== END 2018-06-23 16:15 | disposition home health service (06) | DRG 682 ==
LOC: M.ERS 23:38 → M.2W 06-20 01:15 → M.TBA-ER 06-20 01:15 → M.2W 06-20 02:23 → M.ORTHSURG 06-22 16:31
PROVIDERS: Emergency Medicine; Internal Medicine Infectious Disease; ADMIT Internal Medicine
DX: N17.9 Acute kidney failure, unspecified (principal); G93.41 Metabolic encephalopathy; R65.11 Systemic inflammatory response syndrome (SIRS) of non-infectious origin with acute organ dysfunction; F11.20 Opioid dependence, uncomplicated; L03.116 Cellulitis of left lower limb; E87.1 Hypo-osmolality and hyponatremia; E11.649 Type 2 diabetes mellitus with hypoglycemia without coma; E11.40 Type 2 diabetes mellitus with diabetic neuropathy, unspecified; I25.2 Old myocardial infarction; F41.9 Anxiety disorder, unspecified; F32.9 Major depressive disorder, single episode, unspecified; G89.29 Other chronic pain; I25.10 Atherosclerotic heart disease of native coronary artery without angina pectoris; I87.8 Other specified disorders of veins; I10 Essential (primary) hypertension; E78.5 Hyperlipidemia, unspecified; I48.91 Unspecified atrial fibrillation; M47.816 Spondylosis without myelopathy or radiculopathy, lumbar region; E78.00 Pure hypercholesterolemia, unspecified; T36.95XA Adverse effect of unspecified systemic antibiotic, initial encounter; W07.XXXA Fall from chair, initial encounter; Z79.4 Long term (current) use of insulin; Y92.89 Other specified places as the place of occurrence of the external cause; Z86.73 Personal history of transient ischemic attack (TIA), and cerebral infarction without residual deficits; Z79.2 Long term (current) use of antibiotics; Z79.899 Other long term (current) drug therapy; Z88.8 Allergy status to other drugs, medicaments and biological substances; Z87.891 Personal history of nicotine dependence; Y93.89 Activity, other specified; Y99.8 Other external cause status; Z79.01 Long term (current) use of anticoagulants

== ENCOUNTER → 2018-06-30 | Outpatient (CLI) | payer MEDICARE, BC ==
[~2018-06-30] MED LIST changes: +CEFUROXIME500 MG PO
== END ==
LOC: M.WC 12:32
DX: E11.622 Type 2 diabetes mellitus with other skin ulcer (principal); L97.811 Non-pressure chronic ulcer of other part of right lower leg limited to breakdown of skin; L97.821 Non-pressure chronic ulcer of other part of left lower leg limited to breakdown of skin; I87.2 Venous insufficiency (chronic) (peripheral); I10 Essential (primary) hypertension; I48.91 Unspecified atrial fibrillation; I25.10 Atherosclerotic heart disease of native coronary artery without angina pectoris; I48.92 Unspecified atrial flutter; E66.01 Morbid (severe) obesity due to excess calories; J44.9 Chronic obstructive pulmonary disease, unspecified; F17.200 Nicotine dependence, unspecified, uncomplicated; F32.9 Major depressive disorder, single episode, unspecified; F19.10 Other psychoactive substance abuse, uncomplicated; F12.90 Cannabis use, unspecified, uncomplicated; Z68.36 Body mass index [BMI] 36.0-36.9, adult

== ENCOUNTER → 2018-07-07 | Outpatient (CLI) | payer MEDICARE, BC | LOC: M.WC 05:12 | DX: E11.622 Type 2 diabetes mellitus with other skin ulcer (principal); L97.811 Non-pressure chronic ulcer of other part of right lower leg limited to breakdown of skin; L97.821 Non-pressure chronic ulcer of other part of left lower leg limited to breakdown of skin; I87.2 Venous insufficiency (chronic) (peripheral); I10 Essential (primary) hypertension; I48.91 Unspecified atrial fibrillation; I48.92 Unspecified atrial flutter; I25.10 Atherosclerotic heart disease of native coronary artery without angina pectoris; J44.9 Chronic obstructive pulmonary disease, unspecified; K21.9 Gastro-esophageal reflux disease without esophagitis; E66.01 Morbid (severe) obesity due to excess calories; F32.9 Major depressive disorder, single episode, unspecified; F14.10 Cocaine abuse, uncomplicated; F17.200 Nicotine dependence, unspecified, uncomplicated; F12.10 Cannabis abuse, uncomplicated; Z89.421 Acquired absence of other right toe(s) ==

== ENCOUNTER → 2018-07-15 | Outpatient (CLI) | payer MEDICARE, BC | LOC: M.WC 04:36 | DX: E11.622 Type 2 diabetes mellitus with other skin ulcer (principal); L97.821 Non-pressure chronic ulcer of other part of left lower leg limited to breakdown of skin; L97.811 Non-pressure chronic ulcer of other part of right lower leg limited to breakdown of skin; I87.2 Venous insufficiency (chronic) (peripheral); I10 Essential (primary) hypertension; E66.01 Morbid (severe) obesity due to excess calories; I48.91 Unspecified atrial fibrillation; I48.92 Unspecified atrial flutter; I25.10 Atherosclerotic heart disease of native coronary artery without angina pectoris; J44.9 Chronic obstructive pulmonary disease, unspecified; F17.200 Nicotine dependence, unspecified, uncomplicated; F12.90 Cannabis use, unspecified, uncomplicated; F14.10 Cocaine abuse, uncomplicated; Z91.81 History of falling ==

== ENCOUNTER → 2018-09-16 | Outpatient (CLI) | payer MEDICARE, BC ==
[2018-09-16 15:26] LABS: CREATININE 1.2 mg/dL (0.6-1.3)
== END ==
LOC: M.LAB 15:00 → M.CT 16:00
PROVIDERS: Family Medicine
DX: R04.2 Hemoptysis (principal)

== ENCOUNTER 2018-11-18 15:29 | Emergency (ER) | payer MEDICARE, BC ==
[~2018-11-18] VITALS: Ht 182.9 cm; Wt 133.8 kg
[2018-11-18] MEDS ORDERED: PRADAXA75 MG PO (16:01)
[2018-11-18] MEDS ORDERED: KEFLEX500 M1 PO (17:17)
[2018-11-18] MEDS ORDERED: BACTRIM DS TAB1 EACH PO (17:17)
[2018-11-18 17:26] VITALS: BP 122/51
== END 2018-11-18 17:26 | disposition home or self-care (01) ==
LOC: M.ERS 15:29
DX: S81.812A Laceration without foreign body, left lower leg, initial encounter (principal); E11.9 Type 2 diabetes mellitus without complications; E78.00 Pure hypercholesterolemia, unspecified; F17.210 Nicotine dependence, cigarettes, uncomplicated; Z86.73 Personal history of transient ischemic attack (TIA), and cerebral infarction without residual deficits; Z79.4 Long term (current) use of insulin; Z88.8 Allergy status to other drugs, medicaments and biological substances; W18.39XA Other fall on same level, initial encounter; Y93.89 Activity, other specified; Y92.89 Other specified places as the place of occurrence of the external cause; Y99.8 Other external cause status

== ENCOUNTER → 2018-11-23 | Outpatient (CLI) | payer MEDICARE, BC ==
[~2018-11-23] MED LIST changes: +KEFLEX500 M1 PO; +PRADAXA75 MG PO
== END ==
LOC: M.WC 00:58
DX: E11.622 Type 2 diabetes mellitus with other skin ulcer (principal); L97.821 Non-pressure chronic ulcer of other part of left lower leg limited to breakdown of skin; E66.01 Morbid (severe) obesity due to excess calories; I87.2 Venous insufficiency (chronic) (peripheral); I10 Essential (primary) hypertension; I48.91 Unspecified atrial fibrillation; I48.92 Unspecified atrial flutter; I25.10 Atherosclerotic heart disease of native coronary artery without angina pectoris; J44.9 Chronic obstructive pulmonary disease, unspecified; M19.90 Unspecified osteoarthritis, unspecified site; F32.9 Major depressive disorder, single episode, unspecified; F17.200 Nicotine dependence, unspecified, uncomplicated; Z68.41 Body mass index [BMI] 40.0-44.9, adult; Z89.421 Acquired absence of other right toe(s); Z79.4 Long term (current) use of insulin

== ENCOUNTER → 2018-11-26 | Outpatient (CLI) | payer MEDICARE, BC | LOC: M.WC 05:16 | DX: E11.622 Type 2 diabetes mellitus with other skin ulcer (principal); L97.821 Non-pressure chronic ulcer of other part of left lower leg limited to breakdown of skin; E66.01 Morbid (severe) obesity due to excess calories; I87.2 Venous insufficiency (chronic) (peripheral); I10 Essential (primary) hypertension; I48.91 Unspecified atrial fibrillation; I48.92 Unspecified atrial flutter; I25.10 Atherosclerotic heart disease of native coronary artery without angina pectoris; J44.9 Chronic obstructive pulmonary disease, unspecified; M19.90 Unspecified osteoarthritis, unspecified site; F17.200 Nicotine dependence, unspecified, uncomplicated; F32.9 Major depressive disorder, single episode, unspecified; Z68.41 Body mass index [BMI] 40.0-44.9, adult; Z95.818 Presence of other cardiac implants and grafts; Z89.421 Acquired absence of other right toe(s); Z79.4 Long term (current) use of insulin ==

== ENCOUNTER → 2018-11-30 | Outpatient (CLI) | payer MEDICARE, BC | LOC: M.WC 03:21 | DX: E11.622 Type 2 diabetes mellitus with other skin ulcer (principal); L97.822 Non-pressure chronic ulcer of other part of left lower leg with fat layer exposed; E66.01 Morbid (severe) obesity due to excess calories; I87.2 Venous insufficiency (chronic) (peripheral); I10 Essential (primary) hypertension; I48.91 Unspecified atrial fibrillation; I48.92 Unspecified atrial flutter; I25.10 Atherosclerotic heart disease of native coronary artery without angina pectoris; J44.9 Chronic obstructive pulmonary disease, unspecified; M19.90 Unspecified osteoarthritis, unspecified site; F32.9 Major depressive disorder, single episode, unspecified; F17.200 Nicotine dependence, unspecified, uncomplicated; Z68.41 Body mass index [BMI] 40.0-44.9, adult; Z95.818 Presence of other cardiac implants and grafts; Z89.421 Acquired absence of other right toe(s) ==

== ENCOUNTER → 2018-12-07 | Outpatient (CLI) | payer MEDICARE, BC | LOC: M.WC 04:36 | DX: E11.622 Type 2 diabetes mellitus with other skin ulcer (principal); L97.822 Non-pressure chronic ulcer of other part of left lower leg with fat layer exposed; E66.01 Morbid (severe) obesity due to excess calories; I87.2 Venous insufficiency (chronic) (peripheral); I10 Essential (primary) hypertension; I48.91 Unspecified atrial fibrillation; I48.92 Unspecified atrial flutter; I25.10 Atherosclerotic heart disease of native coronary artery without angina pectoris; J44.9 Chronic obstructive pulmonary disease, unspecified; M19.90 Unspecified osteoarthritis, unspecified site; F17.200 Nicotine dependence, unspecified, uncomplicated; F32.9 Major depressive disorder, single episode, unspecified; Z95.818 Presence of other cardiac implants and grafts; Z89.421 Acquired absence of other right toe(s); Z68.41 Body mass index [BMI] 40.0-44.9, adult ==

== ENCOUNTER → 2018-12-14 | Outpatient (CLI) | payer MEDICARE, BC | LOC: M.WC 00:18 | DX: E11.622 Type 2 diabetes mellitus with other skin ulcer (principal); L97.821 Non-pressure chronic ulcer of other part of left lower leg limited to breakdown of skin; E66.01 Morbid (severe) obesity due to excess calories; I87.2 Venous insufficiency (chronic) (peripheral); I10 Essential (primary) hypertension; I48.91 Unspecified atrial fibrillation; I48.92 Unspecified atrial flutter; I25.10 Atherosclerotic heart disease of native coronary artery without angina pectoris; J44.9 Chronic obstructive pulmonary disease, unspecified; M19.90 Unspecified osteoarthritis, unspecified site; F32.9 Major depressive disorder, single episode, unspecified; F17.200 Nicotine dependence, unspecified, uncomplicated; Z68.41 Body mass index [BMI] 40.0-44.9, adult; Z95.818 Presence of other cardiac implants and grafts; Z89.421 Acquired absence of other right toe(s) ==

== ENCOUNTER → 2018-12-31 | Outpatient (CLI) | payer MEDICARE, BC | LOC: M.WC 05:29 | DX: E11.622 Type 2 diabetes mellitus with other skin ulcer (principal); L97.822 Non-pressure chronic ulcer of other part of left lower leg with fat layer exposed; E66.01 Morbid (severe) obesity due to excess calories; I87.2 Venous insufficiency (chronic) (peripheral); I10 Essential (primary) hypertension; I48.91 Unspecified atrial fibrillation; I48.92 Unspecified atrial flutter; I25.10 Atherosclerotic heart disease of native coronary artery without angina pectoris; J44.9 Chronic obstructive pulmonary disease, unspecified; M19.90 Unspecified osteoarthritis, unspecified site; F32.9 Major depressive disorder, single episode, unspecified; F17.200 Nicotine dependence, unspecified, uncomplicated; Z68.41 Body mass index [BMI] 40.0-44.9, adult; Z95.818 Presence of other cardiac implants and grafts; Z89.421 Acquired absence of other right toe(s) ==

== ENCOUNTER → 2019-01-14 | Outpatient (CLI) | payer MEDICARE, BC | LOC: M.WC 04:59 | DX: E11.621 Type 2 diabetes mellitus with foot ulcer (principal); L97.511 Non-pressure chronic ulcer of other part of right foot limited to breakdown of skin; E11.622 Type 2 diabetes mellitus with other skin ulcer; L97.822 Non-pressure chronic ulcer of other part of left lower leg with fat layer exposed; E66.01 Morbid (severe) obesity due to excess calories; I10 Essential (primary) hypertension; I87.2 Venous insufficiency (chronic) (peripheral); I48.91 Unspecified atrial fibrillation; I48.92 Unspecified atrial flutter; I25.10 Atherosclerotic heart disease of native coronary artery without angina pectoris; J44.9 Chronic obstructive pulmonary disease, unspecified; M19.90 Unspecified osteoarthritis, unspecified site; F32.9 Major depressive disorder, single episode, unspecified; F17.200 Nicotine dependence, unspecified, uncomplicated; Z89.421 Acquired absence of other right toe(s); Z68.41 Body mass index [BMI] 40.0-44.9, adult; Z95.818 Presence of other cardiac implants and grafts ==

== ENCOUNTER → 2019-01-20 | Outpatient (CLI) | payer MEDICARE, BC | LOC: M.WC 04:39 | DX: E11.622 Type 2 diabetes mellitus with other skin ulcer (principal); L97.822 Non-pressure chronic ulcer of other part of left lower leg with fat layer exposed; E11.621 Type 2 diabetes mellitus with foot ulcer; L97.811 Non-pressure chronic ulcer of other part of right lower leg limited to breakdown of skin; L84 Corns and callosities; E66.01 Morbid (severe) obesity due to excess calories; I87.2 Venous insufficiency (chronic) (peripheral); I10 Essential (primary) hypertension; I48.91 Unspecified atrial fibrillation; I48.92 Unspecified atrial flutter; I25.10 Atherosclerotic heart disease of native coronary artery without angina pectoris; J44.9 Chronic obstructive pulmonary disease, unspecified; M19.90 Unspecified osteoarthritis, unspecified site; F17.200 Nicotine dependence, unspecified, uncomplicated; F32.9 Major depressive disorder, single episode, unspecified; Z68.41 Body mass index [BMI] 40.0-44.9, adult; Z95.818 Presence of other cardiac implants and grafts; Z89.421 Acquired absence of other right toe(s) ==

== ENCOUNTER → 2019-01-27 | Outpatient (CLI) | payer MEDICARE, BC | LOC: M.WC 05:31 | DX: E11.621 Type 2 diabetes mellitus with foot ulcer (principal); L97.512 Non-pressure chronic ulcer of other part of right foot with fat layer exposed; L03.116 Cellulitis of left lower limb; E66.01 Morbid (severe) obesity due to excess calories; I10 Essential (primary) hypertension; I48.91 Unspecified atrial fibrillation; I48.92 Unspecified atrial flutter; I25.10 Atherosclerotic heart disease of native coronary artery without angina pectoris; I87.2 Venous insufficiency (chronic) (peripheral); J44.9 Chronic obstructive pulmonary disease, unspecified; M20.11 Hallux valgus (acquired), right foot; M19.90 Unspecified osteoarthritis, unspecified site; F32.9 Major depressive disorder, single episode, unspecified; F17.200 Nicotine dependence, unspecified, uncomplicated; Z68.41 Body mass index [BMI] 40.0-44.9, adult; Z95.818 Presence of other cardiac implants and grafts ==

== ENCOUNTER → 2019-02-03 | Outpatient (CLI) | payer MEDICARE, BC | LOC: M.WC 09:31 | DX: E11.621 Type 2 diabetes mellitus with foot ulcer (principal); L97.512 Non-pressure chronic ulcer of other part of right foot with fat layer exposed; L03.116 Cellulitis of left lower limb; E11.69 Type 2 diabetes mellitus with other specified complication; M86.8X7 Other osteomyelitis, ankle and foot; E11.42 Type 2 diabetes mellitus with diabetic polyneuropathy; E66.01 Morbid (severe) obesity due to excess calories; I87.2 Venous insufficiency (chronic) (peripheral); I10 Essential (primary) hypertension; I48.91 Unspecified atrial fibrillation; I48.92 Unspecified atrial flutter; I25.10 Atherosclerotic heart disease of native coronary artery without angina pectoris; J44.9 Chronic obstructive pulmonary disease, unspecified; M19.90 Unspecified osteoarthritis, unspecified site; Z68.41 Body mass index [BMI] 40.0-44.9, adult; F17.200 Nicotine dependence, unspecified, uncomplicated; F32.9 Major depressive disorder, single episode, unspecified; Z95.818 Presence of other cardiac implants and grafts; Z89.421 Acquired absence of other right toe(s) ==

== ENCOUNTER → 2019-02-10 | Outpatient (CLI) | payer MEDICARE, BC | LOC: M.WC 04:16 | DX: E11.621 Type 2 diabetes mellitus with foot ulcer (principal); L97.512 Non-pressure chronic ulcer of other part of right foot with fat layer exposed; L03.116 Cellulitis of left lower limb; E11.69 Type 2 diabetes mellitus with other specified complication; M86.8X7 Other osteomyelitis, ankle and foot; E11.42 Type 2 diabetes mellitus with diabetic polyneuropathy; E66.01 Morbid (severe) obesity due to excess calories; I87.2 Venous insufficiency (chronic) (peripheral); I10 Essential (primary) hypertension; I48.91 Unspecified atrial fibrillation; I48.92 Unspecified atrial flutter; I25.10 Atherosclerotic heart disease of native coronary artery without angina pectoris; J44.9 Chronic obstructive pulmonary disease, unspecified; M19.90 Unspecified osteoarthritis, unspecified site; F17.200 Nicotine dependence, unspecified, uncomplicated; F32.9 Major depressive disorder, single episode, unspecified; Z68.41 Body mass index [BMI] 40.0-44.9, adult; Z95.818 Presence of other cardiac implants and grafts; Z89.421 Acquired absence of other right toe(s) ==

== ENCOUNTER → 2019-02-17 | Outpatient (CLI) | payer MEDICARE, BC | LOC: M.WC 05:41 | DX: E11.621 Type 2 diabetes mellitus with foot ulcer (principal); L97.512 Non-pressure chronic ulcer of other part of right foot with fat layer exposed; L03.116 Cellulitis of left lower limb; I87.2 Venous insufficiency (chronic) (peripheral); E11.42 Type 2 diabetes mellitus with diabetic polyneuropathy; E66.01 Morbid (severe) obesity due to excess calories; I10 Essential (primary) hypertension; I48.91 Unspecified atrial fibrillation; I48.92 Unspecified atrial flutter; I25.10 Atherosclerotic heart disease of native coronary artery without angina pectoris; J44.9 Chronic obstructive pulmonary disease, unspecified; M19.90 Unspecified osteoarthritis, unspecified site; F32.9 Major depressive disorder, single episode, unspecified; F17.200 Nicotine dependence, unspecified, uncomplicated; Z95.818 Presence of other cardiac implants and grafts; Z89.421 Acquired absence of other right toe(s); Z68.41 Body mass index [BMI] 40.0-44.9, adult ==

== ENCOUNTER → 2019-02-24 | Outpatient (CLI) | payer MEDICARE, BC | LOC: M.WC 08:25 | DX: E11.621 Type 2 diabetes mellitus with foot ulcer (principal); L97.512 Non-pressure chronic ulcer of other part of right foot with fat layer exposed; I87.2 Venous insufficiency (chronic) (peripheral); L03.116 Cellulitis of left lower limb; I10 Essential (primary) hypertension; E66.01 Morbid (severe) obesity due to excess calories; I48.91 Unspecified atrial fibrillation; I48.92 Unspecified atrial flutter; I25.10 Atherosclerotic heart disease of native coronary artery without angina pectoris; J44.9 Chronic obstructive pulmonary disease, unspecified; F17.200 Nicotine dependence, unspecified, uncomplicated; Z68.41 Body mass index [BMI] 40.0-44.9, adult ==

== ENCOUNTER → 2019-03-10 | Outpatient (CLI) | payer MEDICARE, BC | LOC: M.WC 03-03 05:09 | DX: E11.621 Type 2 diabetes mellitus with foot ulcer (principal); L97.512 Non-pressure chronic ulcer of other part of right foot with fat layer exposed; L03.116 Cellulitis of left lower limb; I87.2 Venous insufficiency (chronic) (peripheral); I10 Essential (primary) hypertension; E11.42 Type 2 diabetes mellitus with diabetic polyneuropathy; E66.01 Morbid (severe) obesity due to excess calories; I48.91 Unspecified atrial fibrillation; I48.92 Unspecified atrial flutter; I25.10 Atherosclerotic heart disease of native coronary artery without angina pectoris; J44.9 Chronic obstructive pulmonary disease, unspecified; M19.90 Unspecified osteoarthritis, unspecified site; F17.200 Nicotine dependence, unspecified, uncomplicated; F32.9 Major depressive disorder, single episode, unspecified; Z68.41 Body mass index [BMI] 40.0-44.9, adult; Z95.818 Presence of other cardiac implants and grafts; Z89.421 Acquired absence of other right toe(s) ==

== ENCOUNTER → 2019-03-17 | Day surgery (SDC) | payer MEDICARE, BC ==
[~2019-03-17] MED LIST changes: +CENTRUM SILVER1 EAC2 PO; +CLINDAMYCIN HC300 MG PO; +LYRICA150 MG PO; +MORPHINE SULFAT15 M3 PO
--- NOTE | ~2019-03-17 | OP ---
[address] [address] OPERATIVE REPORT Name: NAVA SANTOS Room: [facility].#: [id number] Admission: 03/17/19 Attend Phys: Varinder Santoro DPM Discharge: Date of : 51 Report #: [id number] THIS REPORT FOR: //name// CC: Varinder Masters SURGEON: Varinder Santoro DPM PREOPERATIVE DIAGNOSES: 1. Ulceration with soft tissue infection, right foot, at lateral base of the hallux. 2. Hammertoe deformities to the right fourth and fifth toes. ANESTHESIA: General LMA. INJECTABLES: 30 mL of 1:1 mixture of 0.5% Marcaine plain and 1% lidocaine plain. ESTIMATED BLOOD LOSS: Roughly 3 mL. HEMOSTASIS: Right ankle pneumatic tourniquet at 300 mmHg. SPECIMENS: Right first, fourth and fifth toes. CULTURES: Soft tissue, aerobic and anaerobic, right foot. SUTURES: 3-0 nylon, nylon. COMPLICATIONS: None. DESCRIPTION OF PROCEDURE: The patient was brought to the OR and placed on the table supine with induction of general LMA anesthesia. A well-padded right ankle pneumatic tourniquet was placed. A local anesthetic block was given to the foot and the extremity was prepped and draped aseptically. After exsanguination and inflation of the tourniquet, a #10 blade was used to create a circumferential incision around the right great toe joint and the toe was disarticulated at the first metatarsophalangeal joint with removal of the tibial and fibular sesamoids. There was no abscess or signs of infection to the first metatarsophalangeal joint or surrounding deep fascial tissue. The extensor and flexor tendons were transected. Electrocautery was utilized for hemostasis. The skin margins were remodeled to facilitate primary closure. The wound was irrigated with sterile saline with bacitracin irrigant and dried. At this time, attention was directed to the right fourth and fifth toes and a circumferential incision was created around them and they were disarticulated at their metatarsophalangeal joints. The old healed incision where the prior second and third toes were removed was excised because the skin was involuted. I excised the skin so that there was a large fish mouth type incision [place] [address] OPERATIVE REPORT Name: NAVA SANTOS Room: [facility] Darron#: [id number] Admission: 03/17/19 Attend Phys: Vairnder Santoro DPM Discharge: Date of : 51 Report #: [id number] with a better coaptation along the entire incision. The plantar skin flap was mobilized dorsally from the hallux to the fifth toe amputation site and sutured with nylon and 3-0 nylon in simple interrupted fashion. The tourniquet was deflated and normal vascular return was present. The foot was cleansed and dressed with Betadine-soaked Adaptic, fluffs, ABDs, Kerlix and Pablo bandages. A portion of soft tissue from the right hallux wound was sent for aerobic and anaerobic tissue cultures. The right first, fourth and fifth toes were sent for surgical pathology. The patient left the OR alert and oriented with no pain or complications noted. By: [id number] 1952Dleonidas Santoro DPM /danyel
[2019-03-17 13:39] LABS: HEMATOCRIT 34.3 % (42.0-52.0); HEMOGLOBIN 11.4 gm/dL (14.0-18.0); MCH 28.8 pg (26.0-34.0); MCHC 33.2 g/dL (28.0-37.0); MCV 86.7 fL (80.0-100.0); MPV 7.7 fl. (7.2-11.1); RBC 3.96 mil/uL (4.50-6.00); RDW-CV 14.8 % (10.5-14.5); WBC 7.1 thou/uL (4.0-11.0)
[2019-03-17 13:58] LABS: CREATININE 1.3 mg/dL (0.6-1.3); POTASSIUM 4.3 mmol/L (3.5-5.1)
--- NOTE | 2019-03-17 16:12 | EKG ---
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1955 Requested By: Varinder Santoro Order Number: [id number] Reading MD: Golden Crenshaw Measurements Intervals [place] Rate: 53 P: 7 WV: 227 QRS: 4 QRSD: 94 T: 26 QT: 507 QTc: 477 Interpretive Statements Sinus rhythm Prolonged WV interval Borderline prolonged QT interval Compared to ECG 04/17/2018 08:50:47 First degree AV block now present Sinus bradycardia no longer present Electronically Signed On 03-17-2019 16:11:56 CDT by Golden Crenshaw [email or web address] <ELECTRONICALLY SIGNED> By: Golden Crenshaw MD, [facility] 03/17/19 1611 134 40 Golden Crenshaw MD, FAC /EPI
--- NOTE | 2019-03-19 16:06 | PATH ---
[address] [address] PATHOLOGY RPT PROCEDURE Name: NAVA SANTOS Room: [facility]..#: [id number] Admission: 03/17/19 Date of : 51 Discharge: Report #: [id number] Path Case #: [id number] [facility] Accession Number: [id number] . 01 Material submitted: . foot - RIGHT FOOT 1ST, 4TH, 5TH TOES, AND SESAMOID. Modifiers: right, first, fourth . 01 Clinical history: . Non-healing wound right foot . 02 Diagnosis: Right foot first, fourth, fifth toes and sesamoid: - Benign largest (first) toe with mild chronic inflammation of soft tissues and focal osteomyelitis near proximal disarticulation margin, without shahida involvement of margin. - Two additional benign toes, one with nonspecific ulceration at distal aspect and underlying reactive bone changes, and other with mild nonspecific chronic inflammation of soft tissue and both without definite osteomyelitis identified. - Separate segment of benign bone (sesamoid) with mild chronic inflammation of attached soft tissue and with suggestion of intraosseous ganglion formation and associated reactive changes, without shahida osteomyelitis identified. (NICK:pit 03/19/2019) QTP/03/19/2019 . 02 Electronically signed: . Corey Peraza MD, Pathologist NPI- [id number] . 01 Gross description: . The specimen is received in formalin, labeled "Nava Santos, first, fourth, fifth toes and sesamoid". The site is further designated on the specimen container as, "right foot". Received is an amputated digit measuring 7.2 x 4.2 x 3.7 cm in greatest dimensions. The bone margin is smooth and concave in appearance, consistent with disarticulation. The bone and soft tissue margins are inked black. The nail is present displaying a pale barfield and thickened to flaky appearance. The epidermal surface displays a poorly circumscribed, white barfield to barfield-green, flaky lesion, which grossly abuts the inked soft tissue margin, measuring 7.1 x 3.3 cm. There are two additional digits present measuring 4.7 x 2.1 x 2.0 and 4.3 x 2.3 x 2.3 cm in greatest dimensions. The bone margins are smooth and concave in appearance, consistent with disarticulation. The bone margins are inked blue and red, respectively. Both nails are present displaying a light barfield and slightly thickened appearance. The epidermal surface of the second toe (blue ink) is pale barfield and slightly wrinkled in appearance with no grossly distinct lesions[place] [address] PATHOLOGY RPT PROCEDURE Name: NAVA SANTOS Room: [facility].#: [id number] Admission: 03/17/19 Date of : 51 Discharge: Report #: [id number] Path Case #: [id number] third toe (red ink) displays a lesion which is poorly circumscribed, irregular in contour and pale barfield to light barfield measuring 1.8 x 1.0 cm. . Also received within the specimen container is an additional segment of bone with adherent soft tissue measuring 2.2 x 2.0 x 2.0 cm in greatest dimensions. A bone margin is not grossly distinct. The specimen is submitted representatively as follows: . A1 development representative section of lesion from largest toe to show relationship with skin margin A2-A4 full-thickness longitudinal cross-section of largest toe from proximal to distal aspects, following decalcification A5-A7 full-thickness longitudinal cross-section of second toe from proximal to distal aspects, following decalcification A8-A9 full-thickness longitudinal cross-section of third toe from proximal to distal aspects, following decalcification A10 full-thickness cross section of separately submitted segment of bone, following decalcification. (CAA; 03/18/2019) QAC/QAC . 02 Pathologist provided ICD-10: L08.9, M86.171, M86.571 . 02 CPT . 292413, 149713 Specimen Comment: A courtesy copy of this report has been sent to Specimen Comment: [phone], . Specimen Comment: Report sent to / DR GONZALEZ Performed at: 01 [facility] [id number] [facility] [address], [place], [place] [id number] MD Ankush Silveira MD Phone: [phone] Performed at: 02 [facility] [address], [place], [place] [id number] MD Corey Peraza MD Phone: [phone]
== END | disposition home or self-care (01) ==
LOC: M.SUR 06:34
PROVIDERS: Podiatrist Foot & Ankle Surgery
DX: M86.171 Other acute osteomyelitis, right ankle and foot (principal); M79.89 Other specified soft tissue disorders; L97.519 Non-pressure chronic ulcer of other part of right foot with unspecified severity; M20.41 Other hammer toe(s) (acquired), right foot; I12.9 Hypertensive chronic kidney disease with stage 1 through stage 4 chronic kidney disease, or unspecified chronic kidney disease; E11.22 Type 2 diabetes mellitus with diabetic chronic kidney disease; N18.9 Chronic kidney disease, unspecified; I48.91 Unspecified atrial fibrillation; I25.2 Old myocardial infarction; G47.33 Obstructive sleep apnea (adult) (pediatric); Z88.8 Allergy status to other drugs, medicaments and biological substances; Z79.4 Long term (current) use of insulin; Z98.890 Other specified postprocedural states; Z79.899 Other long term (current) drug therapy; Z79.01 Long term (current) use of anticoagulants

== ENCOUNTER → 2019-03-24 | Outpatient (CLI) | payer MEDICARE, BC ==
[2019-03-24 14:59] LABS: ABSOLUTE BASOPHILS 0.1 thou/uL (0.0-0.2); ABSOLUTE EOSINOPHILS 0.3 thou/uL (0.0-0.7); ABSOLUTE LYMPHOCYTES 0.9 thou/uL (0.8-5.3); ABSOLUTE MONOCYTES 1.1 thou/uL (0.0-1.2); ABSOLUTE NEUTROPHILS 6.5 thou/uL (1.6-8.1); BASOPHILS 1.3 %; EOSINOPHILS 3.2 %; HEMATOCRIT 31.8 % (42.0-52.0); HEMOGLOBIN 10.5 gm/dL (14.0-18.0); LYMPHOCYTES 10.6 %; MCH 28.5 pg (26.0-34.0); MCHC 33.1 g/dL (28.0-37.0); MCV 86.3 fL (80.0-100.0); MONOCYTES 12.1 %; MPV 7.5 fl. (7.2-11.1); NUCLEATED RBCS 0 /100WBC; PLATELET COUNT* 357 thou/uL (150-400); POLYS 72.8 %; RBC 3.68 mil/uL (4.50-6.00); RDW-CV 14.9 % (10.5-14.5); WBC 8.9 thou/uL (4.0-11.0)
[2019-03-24 15:06] LABS: CREATININE 1.3 mg/dL (0.6-1.3); POTASSIUM 4.2 mmol/L (3.5-5.1)
[2019-03-24 16:01] LABS: ESR (SEDRATE) 62 mm/hr (0-20)
== END ==
LOC: M.WC 04:34
PROVIDERS: Podiatrist Foot & Ankle Surgery
DX: T87.89 Other complications of amputation stump (principal); L03.116 Cellulitis of left lower limb; E11.69 Type 2 diabetes mellitus with other specified complication; M86.8X7 Other osteomyelitis, ankle and foot; E11.42 Type 2 diabetes mellitus with diabetic polyneuropathy; E66.01 Morbid (severe) obesity due to excess calories; I10 Essential (primary) hypertension; I48.91 Unspecified atrial fibrillation; I48.92 Unspecified atrial flutter; I25.10 Atherosclerotic heart disease of native coronary artery without angina pectoris; I87.2 Venous insufficiency (chronic) (peripheral); J44.9 Chronic obstructive pulmonary disease, unspecified; M19.90 Unspecified osteoarthritis, unspecified site; F32.9 Major depressive disorder, single episode, unspecified; F17.200 Nicotine dependence, unspecified, uncomplicated; Z95.818 Presence of other cardiac implants and grafts; Z68.41 Body mass index [BMI] 40.0-44.9, adult; Y83.5 Amputation of limb(s) as the cause of abnormal reaction of the patient, or of later complication, without mention of misadventure at the time of the procedure

== ENCOUNTER → 2019-03-31 | Outpatient (CLI) | payer MEDICARE, BC ==
--- NOTE | 2019-04-05 06:47 | CON ---
[address] [address] CONSULTATION Name: NAVA SANTOS Room: [facility] Darron#: [id number] Admission: 03/31/19 Attend Phys: Varinder Santoro DPM Discharge: Date of : 53 Report #: [id number] THIS REPORT FOR: //name// CC: Varinder Masters DATE OF SERVICE: 04/01/2019 ATTENDING PHYSICIAN: Varinder Santoro DPM REASON FOR EVALUATION: Osteomyelitis involving the right foot. He was seen postop 1 week transmetatarsal amputation of remaining toes. HISTORY OF PRESENT ILLNESS: Chart reviewed, patient examined. This is a 63-year-old who I have seen in the past dating back to 06/2018. His diabetes mellitus has been complicated by peripheral neuropathy, also has vasculopathy, previous amputations, apparently had developed chronic ulcer over the distal left lower extremity. This led to a chronic long-term wound care. He developed inflammatory changes felt to be secondary to infection, although they thought it was superficial and did go ahead and remove the remainder of the toes. Per Dr. Santoro there was confirmation of some acute focal osteomyelitis. At that time, culture was collected, had polymicrobial growth including Enterococcus as well as Bacteroides and methicillin-resistant Staphylococcus aureus (MRSA). He has been on combination therapy, now with doxycycline as well as metronidazole. He is seen postop 1 week. At this point, he denies any significant associated discomfort, the wound is open. He has not had recent fevers or chills. Appetite has been fair. Reports blood sugars have been fairly well controlled. He is not having any adverse drug effects. Denies any significant pulmonary or gastrointestinal-related complaints. ALLERGIES: Includes BUPROPION. PAST MEDICAL HISTORY: Diabetes mellitus type 2, hypertension, depression, degenerative disk disease, atrial fibrillation, coronary artery disease, COPD. CURRENT MEDICINES: Include metronidazole, Lyrica, Vytorin, sotalol, insulin, spironolactone, omeprazole, duloxetine, baclofen, doxycycline, Pradaxa, ascorbic acid. SOCIAL HISTORY: Former smoker, past ethanol. FAMILY HISTORY: Noncontributory. REVIEW OF SYSTEMS: Otherwise unremarkable, 10-point review of systems [place] [address] CONSULTATION Name: NAVA SANTOS Room: [facility]#: [id number] Admission: 03/31/19 Attend Phys: Varinder Santoro DPM Discharge: Date of : 51 Report #: [id number] PHYSICAL EXAMINATION: GENERAL: He is alert and cooperative. He is not overtly distressed, appears somewhat chronically ill. VITAL SIGNS: Stable. HEENT: Normocephalic. Extraocular muscles intact. NECK: Supple. LUNGS: Breathing is nonlabored. EXTREMITIES: Left distal lower extremity. He has transmetatarsal amputation, it is open medially. There is no evidence of exposed bone at this point. There is mild degree of inflammation and no particular odor, no purulence. Appreciable pulses. ASSESSMENT AND PLAN: Osteomyelitis. We will continue current approach. We will see him in 2 weeks. Reevaluate based on the pathology, seems that the ostia was removed in total. Continue wound care as prescribed by Dr. Santoro. <ELECTRONICALLY SIGNED> By: Lawson Ronquillo MD 04/05/19 0647 1030 2300Jolydia Ronquillo MD /nt
== END ==
LOC: M.WC 05:19
DX: T87.89 Other complications of amputation stump (principal); L03.116 Cellulitis of left lower limb; E11.69 Type 2 diabetes mellitus with other specified complication; M86.8X7 Other osteomyelitis, ankle and foot; E11.42 Type 2 diabetes mellitus with diabetic polyneuropathy; E66.01 Morbid (severe) obesity due to excess calories; I87.2 Venous insufficiency (chronic) (peripheral); I10 Essential (primary) hypertension; I48.91 Unspecified atrial fibrillation; I48.92 Unspecified atrial flutter; I25.10 Atherosclerotic heart disease of native coronary artery without angina pectoris; J44.9 Chronic obstructive pulmonary disease, unspecified; M19.90 Unspecified osteoarthritis, unspecified site; F32.9 Major depressive disorder, single episode, unspecified; F17.200 Nicotine dependence, unspecified, uncomplicated; Z68.41 Body mass index [BMI] 40.0-44.9, adult; Z95.818 Presence of other cardiac implants and grafts; Y83.5 Amputation of limb(s) as the cause of abnormal reaction of the patient, or of later complication, without mention of misadventure at the time of the procedure

== ENCOUNTER 2019-04-07 08:04 | Inpatient (IN) | payer MEDICARE, BC ==
[~2019-04-07] VITALS: Ht 182.9 cm; Wt 128.4 kg
[2019-04-07 17:19] LABS: ABSOLUTE BASOPHILS 0.1 thou/uL (0.0-0.2); ABSOLUTE EOSINOPHILS 0.2 thou/uL (0.0-0.7); ABSOLUTE LYMPHOCYTES 0.9 thou/uL (0.8-5.3); ABSOLUTE MONOCYTES 0.9 thou/uL (0.0-1.2); ABSOLUTE NEUTROPHILS 5.5 thou/uL (1.6-8.1); BASOPHILS 0.7 %; EOSINOPHILS 2.2 %; HEMATOCRIT 32.9 % (42.0-52.0); HEMOGLOBIN 10.9 gm/dL (14.0-18.0); LYMPHOCYTES 12.4 %; MCH 28.8 pg (26.0-34.0); MCHC 33.2 g/dL (28.0-37.0); MCV 86.8 fL (80.0-100.0); MONOCYTES 12.1 %; MPV 8.1 fl. (7.2-11.1); NUCLEATED RBCS 0 /100WBC; PLATELET COUNT* 246 thou/uL (150-400); POLYS 72.6 %; RBC 3.79 mil/uL (4.50-6.00); RDW-CV 15.1 % (10.5-14.5); WBC 7.6 thou/uL (4.0-11.0)
[2019-04-07 17:32] LABS: ALBUMIN 3.2 g/dL (3.4-5.0); CALCIUM 8.5 mg/dL (8.5-10.1); CREATININE 1.2 mg/dL (0.6-1.3); MAGNESIUM 1.9 mg/dL (1.8-2.4); POTASSIUM 4.3 mmol/L (3.5-5.1); TOTAL BILIRUBIN 0.5 mg/dL (<0.1-1.0)
[2019-04-07 17:33] LABS: INR 1.4
[2019-04-07 17:43] VITALS: BP 124/43
[2019-04-08] VITALS: BP 136/46
[2019-04-08 04:00] VITALS: BP 156/62
[2019-04-08 12:30] VITALS: BP 111/54
[2019-04-08 15:51] VITALS: BP 147/56
[2019-04-08 16:30] VITALS: BP 115/65
--- NOTE | 2019-04-08 17:41 | EKG ---
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
[2019-04-08 20:10] VITALS: BP 154/42
[2019-04-08 22:08] LABS: URINE BILIRUBIN NEGATIVE (Negative); URINE BLOOD NEGATIVE (Negative); URINE CLARITY CLEAR; URINE COLOR YELLOW; URINE GLUCOSE-RANDOM NEGATIVE (Negative); URINE KETONES NEGATIVE (Negative); URINE LEUKOCYTES-REFLEX NEGATIVE (Negative); URINE NITRITE-REFLEX NEGATIVE (Negative); URINE PROTEIN NEGATIVE (Negative); URINE SPECIFIC GRAVITY <= 1.005 (1.005-1.030); URINE UROBILINOGEN 0.2 E.U./dl (0.2-1.0)
[2019-04-08 22:17] LABS: AMP/METHAMP Negative (Negative); BARBITURATES Negative (Negative); BENZODIAZEPINES Negative (Negative); COCAINE Negative (Negative); METHADONE Negative (Negative); OPIATES POSITIVE (Negative); PCP Negative (Negative); THC Negative (Negative)
[2019-04-09] VITALS: BP 161/53
[2019-04-09 02:21] LABS: ABSOLUTE BASOPHILS 0.1 thou/uL (0.0-0.2); ABSOLUTE EOSINOPHILS 0.4 thou/uL (0.0-0.7); ABSOLUTE MONOCYTES 0.8 thou/uL (0.0-1.2); ABSOLUTE NEUTROPHILS 3.4 thou/uL (1.6-8.1); BASOPHILS 1.3 %; EOSINOPHILS 6.7 %; HEMATOCRIT 31.9 % (42.0-52.0); HEMOGLOBIN 11.1 gm/dL (14.0-18.0); MCH 30.1 pg (26.0-34.0); MCHC 34.7 g/dL (28.0-37.0); MCV 86.7 fL (80.0-100.0); MONOCYTES 14.5 %; MPV 7.7 fl. (7.2-11.1); NUCLEATED RBCS 0 /100WBC; PLATELET COUNT* 221 thou/uL (150-400); POLYS 59.5 %; RBC 3.68 mil/uL (4.50-6.00); RDW-CV 15.6 % (10.5-14.5); WBC 5.8 thou/uL (4.0-11.0)
[2019-04-09 02:29] LABS: CALCIUM 8.5 mg/dL (8.5-10.1); CREATININE 1.1 mg/dL (0.6-1.3); MAGNESIUM 1.9 mg/dL (1.8-2.4); POTASSIUM 3.9 mmol/L (3.5-5.1)
[2019-04-09 02:33] VITALS: BP 161/53
[2019-04-09 04:00] VITALS: BP 122/65; BP 172/65
--- NOTE | 2019-04-09 07:08 | CON ---
[address] [address] CONSULTATION Name: NAVA SANTOS Room: [address] IN ..#: [id number] Admission: 04/07/19 Attend Phys: Alessia Byrnes MD Discharge: Date of : 53 Report #: [id number] THIS REPORT FOR: //name// CC: Varinder Byrnes DATE OF SERVICE: 04/07/2019 INFECTIOUS DISEASE CONSULTATION: ATTENDING PHYSICIAN: Varinder Santoro DPM. HISTORY OF PRESENT ILLNESS: The patient returns today in followup for his postsurgical transmetatarsal amputation of right foot, had a wound dehiscence medial aspect, which has worsened. There is increasing inflammation associated with it, increasing necrotic tissue within the wound base medially. On examination, there is evidence of communication with deeper hard tissues of bone as well. He denies systemic illness. It is notable he has peripheral neuropathy, although he is having some pain recently. It is clear, he lives by himself and he has been unable to offload effectively walking on it likely more than would be recommended. Dr. Santoro inspected the wound, again probed deeply up to 8 cm through the medial aspect, there is a moderate degree of inflammation there. I do not appreciate any purulence or odor. Chronic ulceration is notable, he had confirmation of osteomyelitis of the previous surgery back in February. At that point, he had polymicrobial growth including MRSA, Enterococcus, and Bacteroides, had been on doxycycline and Flagyl. After discussion with Dr. Santoro, it was decided that he ought to be admitted and placed on parenteral therapy with vancomycin based on previous cultures and he will need additional imaging and likely more surgery. He would benefit from being in a facility where he could have some of his needs attended to without him doing any appreciable ambulating. We will follow in the hospital. <ELECTRONICALLY SIGNED> By: Lawson Ronquillo MD 04/09/19 0708 0904 2255Jolydia Ronquillo MD /nt
[2019-04-09 11:23] VITALS: BP 144/45
[2019-04-09 20:00] VITALS: BP 135/55
[2019-04-10] VITALS: BP 111/56
[2019-04-10 04:00] VITALS: BP 144/56
[2019-04-10 16:27] VITALS: BP 118/50
[2019-04-10 20:00] VITALS: BP 148/57
[2019-04-11 04:00] VITALS: BP 132/52
[2019-04-11 05:04] LABS: CALCIUM 9.1 mg/dL (8.5-10.1); CREATININE 1.1 mg/dL (0.6-1.3); MAGNESIUM 1.7 mg/dL (1.8-2.4); POTASSIUM 3.6 mmol/L (3.5-5.1)
[2019-04-11 17:13] VITALS: BP 135/69
[2019-04-11 20:00] VITALS: BP 139/50
[2019-04-12 04:00] VITALS: BP 148/57
[2019-04-12 05:33] LABS: HEMATOCRIT 30.4 % (42.0-52.0); HEMOGLOBIN 10.4 gm/dL (14.0-18.0); MCH 29.4 pg (26.0-34.0); MCHC 34.3 g/dL (28.0-37.0); MCV 85.7 fL (80.0-100.0); MPV 8.1 fl. (7.2-11.1); RBC 3.55 mil/uL (4.50-6.00); RDW-CV 15.1 % (10.5-14.5); WBC 8.4 thou/uL (4.0-11.0)
[2019-04-12 05:47] LABS: CALCIUM 8.5 mg/dL (8.5-10.1); CREATININE 1.1 mg/dL (0.6-1.3); MAGNESIUM 1.9 mg/dL (1.8-2.4); POTASSIUM 3.9 mmol/L (3.5-5.1)
[2019-04-12 16:50] VITALS: BP 126/56
[2019-04-12 21:00] VITALS: BP 122/72
[2019-04-13 00:30] VITALS: BP 140/80
[2019-04-13 03:30] VITALS: BP 140/72
[2019-04-13 04:52] LABS: CALCIUM 8.5 mg/dL (8.5-10.1); CREATININE 1.2 mg/dL (0.6-1.3); MAGNESIUM 1.8 mg/dL (1.8-2.4)
[2019-04-13 08:00] VITALS: BP 127/51
--- NOTE | 2019-04-13 08:38 | CON ---
[address] [address] CONSULTATION Name: NAVA SANTOS Room: [address] IN [facility].#: [id number] Admission: 04/07/19 Attend Phys: Alessia Byrnes MD Discharge: Date of : 51 Report #: [id number] THIS REPORT FOR: //name// CC: Varinder Byrnes DATE OF SERVICE: 04/09/2019 HISTORY OF PRESENT ILLNESS: The patient is a 63-year-old single white male who I was asked to see in the hospital today because of his history of atrial flutter. The history was obtained from the patient as well as some old records. There are no family members available. The patient has a long history of atrial arrhythmias. He has never been cardioverted. He has been chronically anticoagulated. He has been on sotalol for years, which originally was started at [facility]. I actually saw him in the clinic here at [facility] in the past when he was found to be back in atrial flutter. He was actually admitted to [facility] for cardioversion but after increasing the dose of sotalol, he converted on his own back to sinus rhythm. He has done well since that time. He has a long history of venous stasis. He has had cellulitis of his feet. He eventually required amputation of all the toes on his right foot. He currently has a nonhealing sore on his right foot. He is now scheduled for foot surgery. I was asked to see him for preop evaluation. He is not very active because of his amputation and chronic edema. He does wear wraps. He goes to the wound clinic. He apparently had a previous non-STEMI and had a heart catheterization in 2017, which showed minimal coronary artery disease, recommend he be treated medically. The patient is not very active because of his previous amputation. He does have occasional chest pain, although it is nonexertional and does not last very long. He has never taken nitroglycerin. Denies any recent increased shortness of breath, palpitations, syncope, lightheadedness. PAST MEDICAL HISTORY: Otherwise significant for cholecystectomy, hand surgery, back surgery. He has a history of diabetes, hypertension, hyperlipidemia, sleep apnea, uses CPAP. Chronic back pain, he has a pain pump in place. MEDICATIONS: Consists of amlodipine, Lipitor, Pradaxa which was stopped 2 days ago, Cymbalta, furosemide he takes twice a day, insulin therapy, Prilosec, Lyrica, sotalol 160 mg twice a day, spironolactone. ALLERGIES: He has a previous INTOLERANCE TO NIACIN. FAMILY HISTORY: Negative for heart disease. SOCIAL HISTORY: He is going through a divorce, lives by himself in [place], [place]. He used to work at [employer] He used to smoke a pipe. [place] [address] CONSULTATION Name: NAVA SANTOS Room: [address] IN [facility].#: [id number] Admission: 04/07/19 Attend Phys: Alessia Byrnes MD Discharge: Date of : 53 Report #: [id number] No history of alcohol abuse. REVIEW OF SYSTEMS: He apparently had a TIA in the past affecting his vision. He has had a peptic ulcer in the past. No asthma. He has chronic kidney disease, no cancer. He had hepatitis C, this has been treated. No chronic skin condition. PHYSICAL EXAMINATION: GENERAL: Revealed a middle-aged male, lying in bed. He appeared in no distress. VITAL SIGNS: He has a blood pressure of 140/60, pulse is 50. He is afebrile. HEENT: He is anicteric. Conjunctivae pink. Mucous membranes moist. NECK: Veins not distended. No carotid bruits. Neck is supple. CHEST: Clear to auscultation. CARDIAC: Regular, bradycardia. ABDOMEN: Soft. EXTREMITIES: Had no pitting edema. SKIN: Cool and dry. NEUROLOGIC: Nonfocal. LABORATORY DATA: His ECG done on admission yesterday showed sinus bradycardia, no significant ST or T-wave change. His workup, he had an echocardiogram in 2018 that showed ejection fraction of 65% with left ventricular hypertrophy. His workup so far, lower extremity arterial Doppler study showed no significant arterial occlusive disease with minimal plaque. Mild stenosis of the right posterior tibial artery. His lab work, sodium 131. His liver function studies were normal. His previous LDL was 44. TSH 0.9. White blood cell count 5.8, hemoglobin 11.1, hematocrit 31.9. IMPRESSION AND RECOMMENDATIONS: 1. Coronary artery disease. Previous non ST elevation myocardial infarction in 03/2018. I performed a cardiac catheterization at that time that showed 50% narrowing of the left anterior descending, 60% narrowing of the ostium of a second marginal branch of circumflex. Medical therapy was recommended. No recent angina. Since the patient is on Pradaxa, I would not recommend aspirin. No recent angina. 2. History of atrial flutter. No clinical recurrences on sotalol. Because of his bradycardia, I would recommend decreasing sotalol to 80 mg twice a day. I would resume Pradaxa after his surgery. 3. Diabetes. 4. Hypertension. The patient is on a calcium jorge, beta jorge. 5. Hyperlipidemia. The patient is on a statin drug. 6. Sleep apnea. The patient uses CPAP. 7. Venous stasis. The patient uses support hose and diuretics. 8. Peripheral arterial disease. No symptoms of claudication. 9. Chronic back pain. The patient has a [place] [address] CONSULTATION Name: NAVA SANTOS Room: [address]#: [id number] Admission: 04/07/19 Attend Phys: Alessia Byrnes MD Discharge: Date of : 53 Report #: [id number] 10. Foot ulcer. The patient is scheduled for surgery. He appears to have no contraindication to foot surgery. I believe his risk for cardiac complications with foot surgery is low at this time. I would resume Pradaxa after his surgery. <ELECTRONICALLY SIGNED> By: Golden Crenshaw MD, FACC 04/13/19 0838 1151 2013Golden Crenshaw MD, [facility] /nt
[2019-04-13 17:35] VITALS: BP 119/62
[2019-04-13 21:20] VITALS: BP 145/63
[2019-04-14 07:15] VITALS: BP 141/72
[2019-04-14] MEDS ORDERED: CEFEPIME 22 GM/100 M IVPB (12:31)
[2019-04-14] MEDS ORDERED: LIDOCAINE1 EACH TRANSDERM (12:34)
[2019-04-14] MEDS ORDERED: VOLTAREN GEL 1100 G2 TOP (12:35)
[2019-04-14 12:36] VITALS: BP 141/72
[2019-04-14 12:40] VITALS: BP 141/72
[2019-04-14 12:41] VITALS: BP 141/72
[2019-04-14 12:42] VITALS: BP 141/72
[2019-04-14] MEDS ORDERED: AMOXICILLIN 50500 MG PO (13:44)
[2019-04-14 13:58] VITALS: BP 141/72
--- NOTE | 2019-04-14 17:12 | PATH ---
[address] [address] PATHOLOGY RPT PROCEDURE Name: NAVA SANTOS Room: [address] IN .R.#: [id number] Admission: 04/07/19 Date of : 51 Discharge: 04/14/19 Report #: [id number] Path Case #: [id number] [facility] Accession Number: [id number] . 01 Material submitted: . toe - RIGHT FIRST AND SECOND METATARSAL. Modifiers: right, first, second . 01 Clinical history: . Osteomyelitis right first metatarsal. . 02 Diagnosis: Right first and second metatarsal: - Larger benign bone segment with prominent osteomyelitis at jagged end and opposite (smooth), black inked edge free of osteomyelitis. - Smaller benign osteocartilaginous segment without osteomyelitis and with acute inflammation of attached synovium and benign fibrovascular connective tissues. (NICK:ashia; 04/14/2019) QMS/04/14/2019 . 02 Electronically signed: . Corey Peraza MD, Pathologist NPI- [id number] . 01 Gross description: . Received in formalin labeled "Nava Santos, right first and second metatarsal" are two segments of barfield-white bone and attached barfield-yellow adherent soft tissue. The larger piece measures 4.3 x 4.0 x 2.6 cm and the smaller fragment measures 4.2 x 2.1 x 1.7 cm. One aspect of the larger piece has a ragged irregular bone surface at one aspect (inked blue) and a smooth bone margin at the opposite aspect (inked black). The irregular bone surface has slightly olvera discolored surrounding surfaces, and is possibly consistent with a lesion. The smaller piece has a convex cartilaginous covered articular surface at one aspect and a smooth bone resection margin at the opposite aspect (inked green). No lesions are grossly identified on this piece. Mica Plate Layer Hand sections are submitted as follows: A1-A3 marketing representative cross section of larger piece (decalcified) A4-A5 marketing representative cross section of smaller piece (decalcified) ([facility]; 04/11/2019) SY/SY . 02 Pathologist provided ICD-10: M86.8X7, M65.871 . 02 CPT . 998083, 139115 Specimen Comment: A courtesy copy of [place] [address] PATHOLOGY RPT PROCEDURE Name: NAVA SANTOS Room: [address] IN ..#: [id number] Admission: 04/07/19 Date of : 51 Discharge: 04/14/19 Report #: [id number] Path Case #: [id number] Specimen Comment: [phone], , . Specimen Comment: Report sent to DR MATAMOROS, DR DUMONT / DR GONZALEZ Performed at: [address], [place], [place] [id number] MD Ankush Silveira MD Phone: [phone] Performed at: 02 [facility] [address], [place] [id number] MD Corey Peraza MD Phone: [phone]
--- NOTE | 2019-04-16 07:39 | CON ---
[address] [address] CONSULTATION Name: NAVA SANTOS Room: [address] IN .R.#: [id number] Admission: 04/07/19 Attend Phys: Alessia Byrnes MD Discharge: 04/14/19 Date of : 51 Report #: [id number] THIS REPORT FOR: //name// CC: Varinder Byrnes DATE OF SERVICE: 04/13/2019 CHIEF COMPLAINT: Followup of resection, right distal first and second metatarsals with primary closure over a drain for osteomyelitis. The patient has type 2 diabetes mellitus with peripheral neuropathy and venous insufficiency. Surgical pathology is pending. Surgical bone and tissue cultures grew Enterobacter cloacae and Pseudomonas. He has a recent history of culturing MRSA. He is on parenteral cefepime with good tolerance. His pain is much better controlled today. He has remained nonweightbearing to the extremity; he is scheduled for physical therapy today. Awaiting long-term facility placement. No new labs for review. PHYSICAL EXAMINATION: The incision is well approximated with low-grade inflammation to the medial aspect, improved since yesterday. There is no underlying fluctuance, crepitation, bleeding or expressible material or expressible drainage. The foot is warm with no pallor or cyanosis. Immediate darryl-incisional capillary refill to the surgical site. No popliteal adenopathy or calf pain to the right extremity. He can flex and extend the right foot consistent with the procedure. IMPRESSION: Osteomyelitis, type 2 diabetes mellitus with peripheral neuropathy. PLAN: The foot was cleansed and redressed with 4 x 4s, ABDs, Kerlix, and Pablo bandage. The patient is to remain strictly nonweightbearing to the extremity and undergo physical therapy. Awaiting long-term placement. Continue daily dressing changes, maximize glycemic control and nutrition. <ELECTRONICALLY SIGNED> By: Varinder Santoro DPM 04/16/19 0739 0756 2225Daarpita Santoro DPM /nt
--- NOTE | 2019-04-16 07:39 | CON ---
[address] [address] CONSULTATION Name: NAVA SANTOS Room: [address] IN ..#: [id number] Admission: 04/07/19 Attend Phys: Alessia Byrnes MD Discharge: 04/14/19 Date of : 51 Report #: [id number] THIS REPORT FOR: //name// CC: Varinder Byrnes DATE OF SERVICE: 04/12/2019 CHIEF COMPLAINT: Postoperative day 3 for resection of right distal first and second metatarsals with primary closure over gravity drain. Surgical cultures grew Enterobacter cloacae and Pseudomonas aeruginosa and Streptococcus species. He is on parenteral cefepime with good tolerance. He has been afebrile with much better pain control. He is nonweightbearing to the right extremity. He has gotten on a bed today and is sitting in a reclining chair. His appetite is improved. LABORATORY DATA: WBC 8.4, RBC 3.55, hemoglobin 10.4, hematocrit 30.4, platelets 233. BUN 12, creatinine 1.1, glucose 90. PHYSICAL EXAMINATION: The incision was well approximated with a small drain hole at the plantar medial aspect of the incision. Low grade inflammation substantially decreased since preoperatively. No pallor, cyanosis or signs of acute vascular embarrassment. No underlying fluctuance or crepitation. No active bleeding from the drain site. Negative Homans' or Garcia sign to either extremity. No right popliteal adenopathy. IMPRESSION: Osteomyelitis, right foot, type 2 diabetes mellitus. PLAN: The incision and wound were cleansed and dried and redressed with ABDs, Kerlix and Pablo bandage. The patient to remain strictly nonweightbearing to the right foot. <ELECTRONICALLY SIGNED> By: Varinder Santoro DPM 04/16/19 0739 [id number] Santoro DPM /nt
--- NOTE | 2019-04-16 07:39 | CON ---
[address] [address] CONSULTATION Name: NAVA SANTOS Room: [address] IN .R.#: [id number] Admission: 04/07/19 Attend Phys: Alessia Byrnes MD Discharge: 04/14/19 Date of : 51 Report #: [id number] THIS REPORT FOR: //name// CC: Varinder Byrnes DATE OF SERVICE: 04/11/2019 CHIEF COMPLAINT: Postoperative day #2 for resection of right distal first and second metatarsals with primary closure over a drain for osteomyelitis. HISTORY OF PRESENT ILLNESS: Surgical pathology is pending. Surgical cultures growing Pseudomonas and gram-negative rods. He is on parenteral vancomycin, with good tolerance. Pain is better controlled on p.o. morphine and oxycodone. He has been afebrile, on bed rest since surgery. No new labs for review. PHYSICAL EXAMINATION: The incision is well approximated, with low-grade inflammation at the medial aspect. No pallor, cyanosis, dehiscence, fluctuance or crepitation noted. No signs of acute vascular embarrassment. No calf pain or popliteal adenopathy to the right lower extremity. IMPRESSION: Osteomyelitis, right foot; type 2 diabetes mellitus; peripheral neuropathy and chronic pain. PLAN: The Aquacel drain was pulled and the incision was cleansed, dried and re-dressed with 4 x 4s, ABD, Kerlix and Pablo bandages. The patient to remain strictly nonweightbearing and elevate the foot. I wrote a consult for Physical Therapy evaluation and case management for [facility] facility placement. <ELECTRONICALLY SIGNED> By: Varinder Santoro DPM 04/16/19 0739 [id number] Santoro DPM /nt
--- NOTE | 2019-04-16 07:39 | OP ---
[address] [address] OPERATIVE REPORT Name: NAVA SANTOS Room: [address] IN ..#: [id number] Admission: 04/07/19 Attend Phys: Alessia Byrnes MD Discharge: 04/14/19 Date of : 51 Report #: [id number] THIS REPORT FOR: //name// CC: Varinder Byrnes DATE OF SERVICE: 04/09/2019 SURGEON: Varinder Santoro DPM PREOPERATIVE DIAGNOSIS: Osteomyelitis, right distal first metatarsal with deep tissue infection and open ulceration. POSTOPERATIVE DIAGNOSIS: Osteomyelitis, right distal first metatarsal with deep tissue infection and open ulceration. PROCEDURE: 1. Resection right distal first and second metatarsals. 2. Incision and drainage, right foot. 3. Pedicled skin flap, right foot. ANESTHESIA: General LMA. INJECTABLES: 30 mL of a 1:1 mixture of 0.5% Marcaine plain and 1% lidocaine plain. ESTIMATED BLOOD LOSS: Minimal. HEMOSTASIS: Right ankle pneumatic tourniquet at 250 mmHg. ESTIMATED BLOOD LOSS: Minimal. SUTURES: 2-0 nylon. SPECIMENS: Right distal first and second metatarsals. CULTURES: 1. Bone, right first metatarsal, aerobic and anaerobic. 2. Soft tissue, right foot, aerobic and anaerobic. COMPLICATIONS: None. DESCRIPTION OF PROCEDURE: The patient was brought to the OR and placed on the table supine with induction of general LMA anesthesia. A well-padded right ankle pneumatic tourniquet was placed. [place] [address] OPERATIVE REPORT Name: NAVA SANTOS Tash Room: [address] IN .R.#: [id number] Admission: 04/07/19 Attend Phys: Alessia Byrnes MD Discharge: 04/14/19 Date of : 51 Report #: [id number] the distal right foot and the extremity was prepped and draped aseptically. After exsanguination and inflation of the tourniquet, a #10 blade was used to create a dorsal medial incision over the distal first metatarsal with dissection off the first and second metatarsals. The distal first metatarsal had discoloration with some lysis, therefore I resected it at the distal aspect of the diaphysis where the bone was hard with no visible bone destruction. The distal second metatarsal head had some yellowish discoloration of the distal aspect with surrounding soft tissue infection, which was indicative of likely osteomyelitis. The adjacent third metatarsal had a normal healthy appearance with healthy cartilaginous surface. I transected the distal second metatarsal at the distal diaphyseal region. I performed extensive soft tissue debridement to the wound interior with electrocautery for hemostasis. Skin edges were remodeled and a skin flap was mobilized from plantar medial to dorsal and dorsolaterally. Prior to closure, the wound was flushed with sterile saline with bacitracin irrigant. The plantar skin flap was mobilized dorsal and dorsolaterally and sutured with 2-0 nylon in simple interrupted fashion. I left a small portion of the plantar medial incision open for packing and I placed a wick of Aquacel Ag into the wound interior. The foot was cleansed and dried. The tourniquet was deflated with normal vascular return. A sterile compressive bandage with Aquacel Ag, fluffs, ABDs, Kerlix, and Pablo wraps were applied. The patient left the OR alert with no complications noted. <ELECTRONICALLY SIGNED> By: Varinder Santoro DPM 04/16/19 0739 0845 [id number] Santoro DPM /nt
--- NOTE | 2019-04-16 07:39 | CON ---
[address] [address] CONSULTATION Name: NAVA SANTOS Room: [address] IN .R.#: [id number] Admission: 04/07/19 Attend Phys: Alessia Byrnes MD Discharge: 04/14/19 Date of : 51 Report #: [id number] THIS REPORT FOR: //name// CC: Varinder Byrnes DATE OF SERVICE: 04/08/2019 CHIEF COMPLAINT: Deep tissue infection and ulceration, right hallux amputation site, with likely osteomyelitis. He is on parenteral Unasyn and vancomycin. Recent wound cultures grew MRSA, Enterococcus faecalis and Bacteroides fragilis. He has MRI scheduled tomorrow morning, [employer] rep is required to be present to test function of his pain pump. He feels well, denies fevers, chills or malaise. No anorexia. Foot x-ray negative for osteomyelitis per radiologist. His foot x-ray with no convincing evidence of acute osteomyelitis per radiologist. Noninvasive arterial Doppler exam showed triphasic waveforms to both legs with infrapopliteal disease with no focal stenosis identified. LABORATORY DATA: WBC 7.6, RBC 3.79, hemoglobin 10.9, hematocrit 32.9, platelets 246. BUN 15, creatinine 1.2, glucose 139. PHYSICAL EXAMINATION: Full-thickness ulceration to the right distal and medial incision at the hallux amputation site. Moderate inflammation is decreased since last visit. Palpable bone of the distal aspect. Significant serosanguineous drainage on his bandage, cellulitis is circumferential to the right distal foot, centered around the hallux amputation site. No popliteal adenopathy or calf pain noted. No signs of acute vascular embarrassment. He has palpable right dorsalis pedis and posterior tibial pulses. IMPRESSION: Deep tissue infection with ulceration, right foot, likely osteomyelitis. Type 2 diabetes mellitus with peripheral neuropathy. PLAN: We will perform partial first ray resection tomorrow with bone and soft tissue cultures and pathology. We will obtain MRI in the morning to verify osteomyelitis; however, I feel there is enough radiographic and clinical evidence to warrant surgical bone resection. The wound was cleansed and re-dressed with Aquacel Ag, ABDs, Kerlix and Pablo bandages. The patient to remain nonweightbearing to the extremity. <ELECTRONICALLY SIGNED> By: Varinder Santoro DPM 04/16/19 0739 2056 [id number] Santoro DPM /nt
== END 2019-04-14 14:01 | DRG 504 ==
LOC: M.WC 08:04 → M.3W 14:58 → M.2W 04-09 18:45 → M.ORTHSURG 04-12 19:57
PROVIDERS: Internal Medicine; ADMIT Family Medicine
PROC: 0QTN0ZZ Resection of Right Metatarsal, Open Approach (ICD-10-PCS; principal; 2019-04-09)
PROC: 02HV33Z Insertion of Infusion Device into Superior Vena Cava, Percutaneous Approach (ICD-10-PCS; principal; 2019-04-09)
DX: T87.81 Dehiscence of amputation stump (principal); L03.115 Cellulitis of right lower limb; D68.59 Other primary thrombophilia; M86.8X7 Other osteomyelitis, ankle and foot; E44.1 Mild protein-calorie malnutrition; E87.1 Hypo-osmolality and hyponatremia; E11.621 Type 2 diabetes mellitus with foot ulcer; E11.42 Type 2 diabetes mellitus with diabetic polyneuropathy; E11.69 Type 2 diabetes mellitus with other specified complication; L97.519 Non-pressure chronic ulcer of other part of right foot with unspecified severity; E78.5 Hyperlipidemia, unspecified; G47.30 Sleep apnea, unspecified; I25.10 Atherosclerotic heart disease of native coronary artery without angina pectoris; I87.8 Other specified disorders of veins; E11.22 Type 2 diabetes mellitus with diabetic chronic kidney disease; N18.3 Chronic kidney disease, stage 3 (moderate); B96.5 Pseudomonas (aeruginosa) (mallei) (pseudomallei) as the cause of diseases classified elsewhere; B96.89 Other specified bacterial agents as the cause of diseases classified elsewhere; I12.9 Hypertensive chronic kidney disease with stage 1 through stage 4 chronic kidney disease, or unspecified chronic kidney disease; B95.2 Enterococcus as the cause of diseases classified elsewhere; E11.51 Type 2 diabetes mellitus with diabetic peripheral angiopathy without gangrene; G89.29 Other chronic pain; I48.0 Paroxysmal atrial fibrillation; M54.5 Low back pain; Y83.5 Amputation of limb(s) as the cause of abnormal reaction of the patient, or of later complication, without mention of misadventure at the time of the procedure; Z68.38 Body mass index [BMI] 38.0-38.9, adult; Z76.5 Malingerer [conscious simulation]; Y92.89 Other specified places as the place of occurrence of the external cause; I25.2 Old myocardial infarction; Z90.49 Acquired absence of other specified parts of digestive tract; Z87.891 Personal history of nicotine dependence; Z86.73 Personal history of transient ischemic attack (TIA), and cerebral infarction without residual deficits; Z79.4 Long term (current) use of insulin; Z79.899 Other long term (current) drug therapy; Z88.8 Allergy status to other drugs, medicaments and biological substances

== ENCOUNTER → 2019-04-21 | Outpatient (CLI) | payer MEDICARE, BC ==
[~2019-04-21] MED LIST changes: +AMOXICILLIN 50500 MG PO; +CEFEPIME 22 GM/100 M IVPB; +LIDOCAINE1 EACH TRANSDERM; +VOLTAREN GEL 1100 G2 TOP
--- NOTE | 2019-04-23 07:05 | CON ---
[address] [address] CONSULTATION Name: NAVA SANTOS Room: [facility] JAIDA Rob#: [id number] Admission: 04/21/19 Attend Phys: Varinder Santoro DPM Discharge: Date of : 51 Report #: [id number] THIS REPORT FOR: //name// CC: Varinder Masters DATE OF SERVICE: 04/21/2019 ATTENDING PHYSICIAN: Dr. Varinder Maher. HISTORY OF PRESENT ILLNESS: He is here for foot amputation, right foot, complicated by incisional dehiscence, has a large open wound, chronic osteomyelitis. The patient returns today in followup being hospitalized and underwent operative procedure, operative cultures with growth of gram negatives including Pseudomonas as well as Enterobacter, did have one of the cultures had Enterococcus as well. He has been started on combination therapy, parenteral cefepime as well as oral amoxicillin. He is in a facility now, he has had issues with noncompliance to the extent that he was walking on his foot. He denies significant amount of pain or discomfort associated locally. He has not been systemically ill. Appetite is somewhat variable. MENTAL STATUS EXAMINATION: The wound appears fairly clean laterally. Medially, there is a significant depth to it, post-debridement, so it is fairly bloody, it is not clear that there is exposed bone at this point. Overall degree of inflammation is receded across the surface of the foot. ASSESSMENT AND PLAN: Chronic osteomyelitis. At this point, would extend the parenteral therapy, perhaps several more weeks, but we will see him on a weekly basis initially, continue the cefepime as well as amoxicillin, to follow weekly labs. Again, these to completely offload the site, optimize his nutritional status. <ELECTRONICALLY SIGNED> By: Lawson Ronquillo MD 04/23/19 0705 1557 [id number] Ronquillo MD /nt
== END ==
LOC: M.WC 05:07
DX: T87.89 Other complications of amputation stump (principal); E11.621 Type 2 diabetes mellitus with foot ulcer; L97.512 Non-pressure chronic ulcer of other part of right foot with fat layer exposed; E66.01 Morbid (severe) obesity due to excess calories; I10 Essential (primary) hypertension; I48.91 Unspecified atrial fibrillation; I48.92 Unspecified atrial flutter; I25.10 Atherosclerotic heart disease of native coronary artery without angina pectoris; J44.9 Chronic obstructive pulmonary disease, unspecified; M19.90 Unspecified osteoarthritis, unspecified site; F17.200 Nicotine dependence, unspecified, uncomplicated; F32.9 Major depressive disorder, single episode, unspecified; Z95.818 Presence of other cardiac implants and grafts; Z89.421 Acquired absence of other right toe(s); Z68.41 Body mass index [BMI] 40.0-44.9, adult; Y83.5 Amputation of limb(s) as the cause of abnormal reaction of the patient, or of later complication, without mention of misadventure at the time of the procedure

== ENCOUNTER → 2019-04-28 | Outpatient (CLI) | payer MEDICARE, BC ==
--- NOTE | 2019-04-30 07:41 | CON ---
[address] [address] CONSULTATION Name: NAVA SANTOS Room: [facility] JAIDA DevlinBeth#: [id number] Admission: 04/28/19 Attend Phys: Varinder Santoro DPM Discharge: Date of : 51 Report #: [id number] THIS REPORT FOR: //name// CC: Varinder Masters DATE OF SERVICE: 04/28/2019 ATTENDING PHYSICIAN: Varinder Santoro MD. HISTORY OF PRESENT ILLNESS: The patient is seen in the outpatient area of the [facility] at [place], [place]. He is here for followup of chronic osteomyelitis, involving his right foot. He is postoperative debridement. Generally, he has been feeling fairly well. He is in a facility to help him manage the wound, including offloading. He denies any significant localizing or systemic signs or symptoms. He has completed roughly 3 weeks of parenteral therapy scheduled for a 6-week course. On evaluation, he is seen post-debridement. The wound appears to be generally healthy. There is no residual devitalized tissue, no purulence, no odor. He does have some remaining sutures in place. ASSESSMENT AND PLAN: Chronic osteomyelitis. At this point, we would extend the antibiotics with cefepime 2 g IV every 12 hours. We will see him back on a weekly basis at least initially. We will check weekly labs. It is critical that he offloads the site, optimizes his nutritional status. Wound care as prescribed by Dr. Santoro. <ELECTRONICALLY SIGNED> By: Lawson Ronquillo MD 04/30/19 0741 1533 0154Jolydia Ronquillo MD /nt
== END ==
LOC: M.WC 05:09
DX: T81.89XD Other complications of procedures, not elsewhere classified, subsequent encounter (principal); E11.621 Type 2 diabetes mellitus with foot ulcer; L89.611 Pressure ulcer of right heel, stage 1; L97.412 Non-pressure chronic ulcer of right heel and midfoot with fat layer exposed; E66.01 Morbid (severe) obesity due to excess calories; I10 Essential (primary) hypertension; M19.90 Unspecified osteoarthritis, unspecified site; I48.91 Unspecified atrial fibrillation; I48.92 Unspecified atrial flutter; I25.10 Atherosclerotic heart disease of native coronary artery without angina pectoris; I87.2 Venous insufficiency (chronic) (peripheral); J44.9 Chronic obstructive pulmonary disease, unspecified; F17.200 Nicotine dependence, unspecified, uncomplicated; F32.9 Major depressive disorder, single episode, unspecified; Z95.818 Presence of other cardiac implants and grafts; Z89.421 Acquired absence of other right toe(s); Z68.41 Body mass index [BMI] 40.0-44.9, adult; Y83.8 Other surgical procedures as the cause of abnormal reaction of the patient, or of later complication, without mention of misadventure at the time of the procedure

== ENCOUNTER → 2019-05-05 | Outpatient (CLI) | payer MEDICARE, BC ==
--- NOTE | 2019-05-06 11:48 | CON ---
[address] [address] CONSULTATION Name: NAVA SANTOS Room: [facility] JAIDA Rob#: [id number] Admission: 05/05/19 Attend Phys: Varinder Santoro DPM Discharge: Date of : 51 Report #: [id number] THIS REPORT FOR: //name// CC: Varinder Masters DATE OF SERVICE: 05/05/2019 INFECTIOUS DISEASE CONSULTATION ATTENDING PHYSICIAN: Dr. Varinder Santoro. HISTORY OF PRESENT ILLNESS: He is here for followup transmetatarsal amputation, chronic osteomyelitis. He generally feels reasonably well. Denies any systemic illness. He states his appetite has been good. No pulmonary or gastrointestinal related complaints. On evaluation, he does have a wound that appears to be healing. There is increased granulation tissue. There is some depth to the wound up to 2-3 cm purulence, there is some mild degree of inflammation. Dr. Santoro did notice some exposed bone at the mid portion. Based on that, he did attempt to rongeur out the surface. There was active bleeding. ASSESSMENT AND PLAN: Chronic osteomyelitis. At this point, would extend the antibiotics. He has completed roughly 4 weeks, will go for a total of 6 weeks with the cefepime as well as amoxicillin. At that point, we are going to try to ____ down the regimen, perhaps oral. Continue to offload the site. He noted he was being discharged. There is a considerable concern about still being compliant with offloading, not walking. We will see him in followup next week. Weekly labs. <ELECTRONICALLY SIGNED> By: Lawson Ronquillo MD 05/06/19 1148 1510 0030Jolydia Ronquillo MD /nt
== END ==
LOC: M.WC 00:47
DX: T81.89XD Other complications of procedures, not elsewhere classified, subsequent encounter (principal); E11.621 Type 2 diabetes mellitus with foot ulcer; L89.611 Pressure ulcer of right heel, stage 1; L97.411 Non-pressure chronic ulcer of right heel and midfoot limited to breakdown of skin; E11.42 Type 2 diabetes mellitus with diabetic polyneuropathy; E66.01 Morbid (severe) obesity due to excess calories; I10 Essential (primary) hypertension; I48.91 Unspecified atrial fibrillation; I48.92 Unspecified atrial flutter; I25.10 Atherosclerotic heart disease of native coronary artery without angina pectoris; I87.2 Venous insufficiency (chronic) (peripheral); J44.9 Chronic obstructive pulmonary disease, unspecified; M19.90 Unspecified osteoarthritis, unspecified site; F32.9 Major depressive disorder, single episode, unspecified; F17.200 Nicotine dependence, unspecified, uncomplicated; Z68.41 Body mass index [BMI] 40.0-44.9, adult; Z95.818 Presence of other cardiac implants and grafts; Z89.421 Acquired absence of other right toe(s); Y83.8 Other surgical procedures as the cause of abnormal reaction of the patient, or of later complication, without mention of misadventure at the time of the procedure

== ENCOUNTER → 2019-05-12 | Outpatient (CLI) | payer MEDICARE, BC | LOC: M.WC 05:21 | DX: T81.89XD Other complications of procedures, not elsewhere classified, subsequent encounter (principal); E11.621 Type 2 diabetes mellitus with foot ulcer; L89.611 Pressure ulcer of right heel, stage 1; L97.412 Non-pressure chronic ulcer of right heel and midfoot with fat layer exposed; E11.622 Type 2 diabetes mellitus with other skin ulcer; L97.822 Non-pressure chronic ulcer of other part of left lower leg with fat layer exposed; E11.42 Type 2 diabetes mellitus with diabetic polyneuropathy; E66.9 Obesity, unspecified; I87.2 Venous insufficiency (chronic) (peripheral); F17.200 Nicotine dependence, unspecified, uncomplicated; Z95.818 Presence of other cardiac implants and grafts; Z89.421 Acquired absence of other right toe(s); Z68.41 Body mass index [BMI] 40.0-44.9, adult; Y83.8 Other surgical procedures as the cause of abnormal reaction of the patient, or of later complication, without mention of misadventure at the time of the procedure ==

== ENCOUNTER → 2019-05-26 | Outpatient (CLI) | payer MEDICARE, BC ==
--- NOTE | 2019-05-27 12:56 | CON ---
[address] [address] CONSULTATION Name: NAVA SANTOS Room: [facility] JAIDA DevlinLexie.#: [id number] Admission: 05/26/19 Attend Phys: Varinder Santoro DPM Discharge: Date of : 51 Report #: [id number] THIS REPORT FOR: //name// CC: Varinder Masters DATE OF SERVICE: 05/26/2019 INFECTIOUS DISEASE CONSULTATION FOLLOWUP ATTENDING PHYSICIAN: Dr. Varinder Santoro. HISTORY OF PRESENT ILLNESS: The patient returns today in followup having undergone surgical amputation involving the right medial aspect of his foot. He is roughly postoperative week #6. He has been treated for chronic osteomyelitis over a number of weeks with parenteral therapy. He has generally been doing fairly well recently. He is scheduled to be discharged from the facility. On evaluation, he denies any particular complaints. No fevers or chills. Appetite has been good. He thinks he can manage at home. PHYSICAL EXAMINATION: SKIN: The wound appears to be granulating well. There is some degree of tunnel that has persisted, although it seems to be decreasing overall depth. There is a mild degree of surface inflammation at this point. ASSESSMENT AND PLAN: Chronic osteomyelitis. At this point, we will discontinue the antibiotics, go ahead and remove the PICC line. We will see him ideally one more time and follow up next week. He is to continue to offload the site, optimize nutritional status. <ELECTRONICALLY SIGNED> By: Lawson Ronquillo MD 05/27/19 1256 1609 0134Joseph Ruben Ronquillo MD /nt
== END ==
LOC: M.WC 03:32
DX: T87.89 Other complications of amputation stump (principal); E11.621 Type 2 diabetes mellitus with foot ulcer; L89.612 Pressure ulcer of right heel, stage 2; L97.411 Non-pressure chronic ulcer of right heel and midfoot limited to breakdown of skin; E11.622 Type 2 diabetes mellitus with other skin ulcer; L97.821 Non-pressure chronic ulcer of other part of left lower leg limited to breakdown of skin; I87.2 Venous insufficiency (chronic) (peripheral); E11.42 Type 2 diabetes mellitus with diabetic polyneuropathy; E11.69 Type 2 diabetes mellitus with other specified complication; M86.8X7 Other osteomyelitis, ankle and foot; E66.01 Morbid (severe) obesity due to excess calories; I10 Essential (primary) hypertension; I48.91 Unspecified atrial fibrillation; I48.92 Unspecified atrial flutter; I25.10 Atherosclerotic heart disease of native coronary artery without angina pectoris; J44.9 Chronic obstructive pulmonary disease, unspecified; M19.90 Unspecified osteoarthritis, unspecified site; F32.9 Major depressive disorder, single episode, unspecified; F17.200 Nicotine dependence, unspecified, uncomplicated; Z68.41 Body mass index [BMI] 40.0-44.9, adult; Z95.818 Presence of other cardiac implants and grafts; Y83.5 Amputation of limb(s) as the cause of abnormal reaction of the patient, or of later complication, without mention of misadventure at the time of the procedure

== ENCOUNTER → 2019-06-02 | Outpatient (CLI) | payer MEDICARE, BC ==
--- NOTE | 2019-06-03 12:53 | CON ---
[address] [address] CONSULTATION Name: NAVA SANTOS Room: [facility] JAIDA Rob#: [id number] Admission: 06/02/19 Attend Phys: Varinder Santoro DPM Discharge: Date of : 51 Report #: [id number] THIS REPORT FOR: //name// CC: Varinder Masters DATE OF SERVICE: 06/02/2019 INFECTIOUS DISEASE CONSULTATION LOCATION: Se[facility] as outpatient [facility] ATTENDING PHYSICIAN: Dr. Varinder Santoro REASON FOR CONSULTATION: Here for followup post right medial foot excisional surgery due to chronic osteomyelitis with residual wound. HISTORY OF PRESENT ILLNESS: The patient returns today in followup having completed a prescribed course of parenteral antimicrobial therapy one week ago. He was discharged home. He states he had a difficult week. He lives by himself and is apparent that he has not been able to offload sufficiently. On examination, the redness seems to be mildly increased, degree of inflammation is perhaps similar. He has not had an excessive drainage. There is no particular odor, wound actually looks fairly good, although the overall dimensions are little changed. He started taking doxycycline he had previously. His appetite has been fair. He has difficulty arranging meals. Chronic osteomyelitis post excision including the first metatarsal. We will continue as prescribed doxycycline. I strongly encouraged to offload, still concerned he will be unable to really take care of himself at home. We discussed with Dr. Santoro, see him on a weekly basis. Continue to elevate, edema has not to this point been successfully controlled. They are considering a multi-layered wrap. Additionally was encouraged to improve his situation in terms of food availability and perhaps rely on some help. We will see him in 1 week. <ELECTRONICALLY SIGNED> By: Lawson Ronquillo MD 06/03/19 1253 1605 0041Jolydia Ronquillo MD /nt
== END ==
LOC: M.WC 05:25
DX: T87.89 Other complications of amputation stump (principal); E11.69 Type 2 diabetes mellitus with other specified complication; M86.8X8 Other osteomyelitis, other site; E66.01 Morbid (severe) obesity due to excess calories; I48.91 Unspecified atrial fibrillation; I48.92 Unspecified atrial flutter; I10 Essential (primary) hypertension; I87.2 Venous insufficiency (chronic) (peripheral); I25.10 Atherosclerotic heart disease of native coronary artery without angina pectoris; J44.9 Chronic obstructive pulmonary disease, unspecified; E11.42 Type 2 diabetes mellitus with diabetic polyneuropathy; F32.9 Major depressive disorder, single episode, unspecified; F17.200 Nicotine dependence, unspecified, uncomplicated; Z68.41 Body mass index [BMI] 40.0-44.9, adult; Z95.818 Presence of other cardiac implants and grafts; Y83.5 Amputation of limb(s) as the cause of abnormal reaction of the patient, or of later complication, without mention of misadventure at the time of the procedure

== ENCOUNTER → 2019-06-16 | Outpatient (CLI) | payer MEDICARE, BC | LOC: M.WC 05:12 | DX: T81.89XD Other complications of procedures, not elsewhere classified, subsequent encounter (principal); I87.2 Venous insufficiency (chronic) (peripheral); I10 Essential (primary) hypertension; I48.91 Unspecified atrial fibrillation; I48.92 Unspecified atrial flutter; I25.10 Atherosclerotic heart disease of native coronary artery without angina pectoris; J44.9 Chronic obstructive pulmonary disease, unspecified; E66.01 Morbid (severe) obesity due to excess calories; F17.200 Nicotine dependence, unspecified, uncomplicated; F32.9 Major depressive disorder, single episode, unspecified; Z68.41 Body mass index [BMI] 40.0-44.9, adult; Y83.8 Other surgical procedures as the cause of abnormal reaction of the patient, or of later complication, without mention of misadventure at the time of the procedure ==

== ENCOUNTER → 2019-06-23 | Outpatient (CLI) | payer MEDICARE, BC ==
--- NOTE | 2019-06-24 13:04 | CON ---
[address] [address] CONSULTATION Name: NAVA ASNTOS Room: [facility] JAIDA Rob#: [id number] Admission: 06/23/19 Attend Phys: Varinder Santoro DPM Discharge: Date of : 51 Report #: [id number] THIS REPORT FOR: //name// CC: Varinder Masters DATE OF SERVICE: 06/23/2019 INFECTIOUS DISEASE CONSULTATION ATTENDING PHYSICIAN: Varinder Maher DPM HISTORY OF PRESENT ILLNESS: He is here for evaluation of osteomyelitis involving the right foot. He had transmetatarsal amputation. Generally, he has been limiting his activity. On examination, the wound does appear to be somewhat more inflamed. Closer inspection does have exposed bone at this point involving the medial aspect of foot and there was notable mild odor as well. On examination probing it extends roughly [address] Santoro, there is a concern about either relapsing a recurrent infection at the site as if he would get some tissue for culture. He was able to rongeur out some bone, which was sent both the microbiology lab as well as the pathology lab. Based on review of the previous cultures, had growth of Pseudomonas and Enterobacter. We will start empiric therapy with ciprofloxacin. In the event of something growing the wound, it would not be amenable that we will certainly make a switch. Dr. Santoro was aggressive in removing quite a bit of bone at this point to may be sufficient. Continue wound care as prescribed. It is critical that he offloads the site. We will see him back in 1 week. <ELECTRONICALLY SIGNED> By: Lawson Ronquillo MD 06/24/19 1304 1632 0257Jolydia Ronquillo MD /nt
== END ==
LOC: M.WC 05:08
DX: T81.89XD Other complications of procedures, not elsewhere classified, subsequent encounter (principal); E11.622 Type 2 diabetes mellitus with other skin ulcer; L97.821 Non-pressure chronic ulcer of other part of left lower leg limited to breakdown of skin; E11.69 Type 2 diabetes mellitus with other specified complication; M86.8X7 Other osteomyelitis, ankle and foot; E66.01 Morbid (severe) obesity due to excess calories; E66.9 Obesity, unspecified; I10 Essential (primary) hypertension; I48.91 Unspecified atrial fibrillation; I48.92 Unspecified atrial flutter; I25.10 Atherosclerotic heart disease of native coronary artery without angina pectoris; I87.2 Venous insufficiency (chronic) (peripheral); J44.9 Chronic obstructive pulmonary disease, unspecified; M19.90 Unspecified osteoarthritis, unspecified site; F32.9 Major depressive disorder, single episode, unspecified; F17.200 Nicotine dependence, unspecified, uncomplicated; Z68.41 Body mass index [BMI] 40.0-44.9, adult; Z95.818 Presence of other cardiac implants and grafts; Z89.421 Acquired absence of other right toe(s); Y83.8 Other surgical procedures as the cause of abnormal reaction of the patient, or of later complication, without mention of misadventure at the time of the procedure

== ENCOUNTER → 2019-06-30 | Outpatient (CLI) | payer MEDICARE, BC ==
--- NOTE | 2019-07-02 10:09 | CON ---
[address] [address] CONSULTATION Name: NAVA SANTOS Room: [facility] JAIDA Rob#: [id number] Admission: 06/30/19 Attend Phys: Varinder Santoro DPM Discharge: Date of : 51 Report #: [id number] THIS REPORT FOR: //name// CC: Varinder Masters DATE OF SERVICE: 06/30/2019 INFECTIOUS DISEASES CONSULTATION ATTENDING PHYSICIAN: Varinder Santoro DPM HISTORY OF PRESENT ILLNESS: He is here for followup of chronic osteomyelitis involving the right foot. He is post-toes amputation. Generally, he denies significant amount of systemic illness. No fevers or chills. Appetite has been good. Blood sugars have been reasonably well controlled. He confirmed he has been offloading. On examination, the wound at the site over the 1st, 2nd distal metatarsals had no exposed bone at this point. There was aggressive debridement removed in the bone. Dr. Santoro last week seems to have helped overall decrease of inflammation. There is a second site over the third, fourth and again there was exposed bone at that site. Dr. Santoro did remove partial osteectomy with rongeurs and to review the path report, which confirmed florid osteomyelitis. Culture like polymicrobial growth including Pseudomonas as well as Enterococcus. He had been started on ciprofloxacin. This will be continued. We added amoxicillin as well based on susceptibilities. Continue to follow him on a weekly basis. Wound care per Dr. Santoro. <ELECTRONICALLY SIGNED> By: Lawson Ronquillo MD 07/02/19 1009 1142 1322Josereggie Ronquillo MD /nt
--- NOTE | 2019-07-02 17:06 | PATH ---
[address] [address] PATHOLOGY RPT PROCEDURE Name: NAVA SANTOS Room: [facility] Darron#: [id number] Admission: 06/30/19 Date of : 51 Discharge: Report #: [id number] Path Case #: [id number] [facility] Accession Number: [id number] . 01 Material submitted: . foot - RIGHT FOOT TMA WOUND #18 BONE. Modifiers: right . 01 Clinical history: . R/O osteomyelitis . 02 Diagnosis: Right lateral foot wound: - Benign osteocartilaginous segment with prominent osteomyelitis. (NICK/db; 07/02/2019) LBQ/07/02/2019 . 02 Electronically signed: . Corey Peraza MD, Pathologist NPI- [id number] . 01 Gross description: . Received in formalin labeled "Nava Santos, Rt lateral foot wound," is a fragment of bone with attached pale barfield possible cartilage measuring 0.7 x 0.3 x 0.3 cm in greatest dimensions. The specimen is trisected and submitted entirely in cassette A1, following decalcification. ([facility]; 07/01/2019) XDC/XDC . 02 Pathologist provided ICD-10: M86.171 . 02 CPT . 813583, 152453 Specimen Comment: A courtesy copy of this report has been sent to Specimen Comment: [phone], . Specimen Comment: Report sent to / DR GONZALEZ Performed at: [address], [place], [place] [id number] MD Ankush Silveira MD Phone: [phone] Performed at: 02 [facility] [address], [place], [place] [address] MD Corey Peraza MD Phone: [phone]
== END ==
LOC: M.WC 04:47
DX: T87.89 Other complications of amputation stump (principal); E11.621 Type 2 diabetes mellitus with foot ulcer; L97.512 Non-pressure chronic ulcer of other part of right foot with fat layer exposed; L03.116 Cellulitis of left lower limb; E11.69 Type 2 diabetes mellitus with other specified complication; M86.8X8 Other osteomyelitis, other site; E11.42 Type 2 diabetes mellitus with diabetic polyneuropathy; E66.01 Morbid (severe) obesity due to excess calories; I87.2 Venous insufficiency (chronic) (peripheral); I10 Essential (primary) hypertension; I48.91 Unspecified atrial fibrillation; I48.92 Unspecified atrial flutter; I25.10 Atherosclerotic heart disease of native coronary artery without angina pectoris; J44.9 Chronic obstructive pulmonary disease, unspecified; M19.90 Unspecified osteoarthritis, unspecified site; F17.210 Nicotine dependence, cigarettes, uncomplicated; F32.9 Major depressive disorder, single episode, unspecified; Z95.818 Presence of other cardiac implants and grafts; Y83.5 Amputation of limb(s) as the cause of abnormal reaction of the patient, or of later complication, without mention of misadventure at the time of the procedure

== ENCOUNTER 2019-07-09 21:14 | Inpatient (IN) | payer MEDICARE, BC ==
[~2019-07-09] VITALS: Ht 182.9 cm; Wt 142.7 kg
--- NOTE | ~2019-07-09 | CON ---
[facility] [address] [place] [address] CONSULTATION Name: NAVA SANTOS Room: [address] IN [facility].#: [id number] Admission: 07/09/19 Attend Phys: Alessia Byrnes MD Discharge: 07/15/19 Date of : 51 Report #: [id number] THIS REPORT FOR: //name// CC: Brown Crystallaney Alessia Byrnes DATE OF SERVICE: 07/14/2019 ADMISSION DIAGNOSIS: Generalized debilitation, toxic encephalopathy. HISTORY OF PRESENT ILLNESS: The patient admitted for generalized weakness, urinary retention with failure for outpatient rehabilitation related to right transmetatarsal foot amputation. He is awaiting placement to a intermediate facility. He is on Augmentin 875 mg b.i.d. and ciprofloxacin 500 mg b.i.d. He has been afebrile. Recent bone culture from outpatient wound clinic positive for osteomyelitis. PHYSICAL EXAMINATION: No erythema or cardinal signs of infection to the right foot. Foot is substantially improved since last visit at [facility]. There is no palpable bone to the distal medial foot wound. There is no underlying fluctuance or crepitation. No inflammation or cardinal signs of infection. No signs of acute vascular embarrassment, red granulation covering both distal foot wounds with minimal pain with a thin layer of pale slough and surrounding keratosis. The foot is warm with palpable dorsalis pedis and posterior tibial pulses. IMPRESSION: Status post right transmetatarsal amputation for osteomyelitis, type 2 diabetes mellitus. PLAN: Excisional ulcer debridement of the distal incision with a scalpel to remove subcutaneous tissue, slough and callus from the distal, medial, and lateral foot wounds. Bleeding was stopped with pressure. The wounds were cleansed and dressed with Aquacel Ag, ABDs, Kerlix and Pablo bandage. I will follow up with the patient next week at [facility]. By: 1613 0009Varinder Santoro DPM /danyel
--- NOTE | ~2019-07-09 | EEG ---
[address] [address] EEG STUDY REPORT Name: NAVA SANTOS Tash Room: [address] IN ..#: [id number] Admission: 07/09/19 Attend Phys: Alessia Byrnes MD Discharge: 07/15/19 Date of : 51 Report #: [id number] THIS REPORT FOR: //name// CC: Brown Rojaslaney Alessia Byrnes DATE OF SERVICE: 07/14/2019 This patient is being evaluated for encephalopathy. EEG was done by placing the electrode by standard 10-20 system of electrode placement. Both referential and sequential montages were used for recording. Background activity in this patient's EEG does go up to about 9 Hz and 30 microvolt. The patient went to sleep that is associated with bilaterally symmetrical sleep spindle and vertex sharp waves. Photic stimulation was unremarkable. Even in the baseline, the patient's EEG does appear to be intermixed with theta range slowing on both sides. IMPRESSION: This patient's EEG is intermixed with some theta range slowing on both sides. That is a nonspecific abnormality, which can occur with drowsiness, effect of psychotropic medication, dementia, etc. Clinical correlation is recommended. By: 1759 28Paryuri Jansen MD /nt
--- NOTE | ~2019-07-09 | CON ---
[address] [address] CONSULTATION Name: NAVA SANTOS Room: [address] IN ..#: [id number] Admission: 07/09/19 Attend Phys: Alessia Byrnes MD Discharge: 07/15/19 Date of : 51 Report #: [id number] THIS REPORT FOR: //name// CC: Brown Crystallaney Alessia Byrnes DATE OF SERVICE: 07/14/2019 HISTORY OF PRESENT ILLNESS: This is a 63-year-old male patient who was evaluated by me for the numbness in both hands. The patient is having numerous problems and a neurological consultation was requested because of the numbness in the hands. He attributes this to the neck problems. He indicates it is going on for 2 years. He had an evaluation by Dr. Cooley. He does not know the specialty of Dr. Cooley and they referred him to a neurosurgeon. He said he got into the middle of a divorce and he could not go for the neurosurgical appointment. He is very concerned with his neck and he believes that is where the symptoms are coming from. REVIEW OF SYSTEMS: Indicate that the patient has multiple problems. He is a diabetic. He has an amputation on the right foot. He has been evaluated by Urology. He had a history of urinary retention. He is significantly depressed. He feels weak in generalized fashion. He does not believe he has any new eyes, ENT, cardiac, respiratory, GI symptom associated with present symptomatology. He has problem with foot. He is a diabetic. He does not have any new dermatological, throat or allergic symptom associated with present symptomatology. PAST MEDICAL HISTORY: Positive for diabetes. FAMILY HISTORY: Negative for any congenital neuropathies. SOCIAL HISTORY: He said he was recently in a divorce proceeding and he appeared to be very depressed. He had a pain pump and had spine problems for a long time. He does not use alcohol. PHYSICAL EXAMINATION: NEUROLOGIC: Indicates he is alert and responsive, can follow simple commands. His speech and concentration looks unremarkable. He thinks his memory is at his baseline. He appeared to be depressed. Cranial nerve examinations appear unremarkable. Neuromuscular examination is difficult because he has bandages on the right foot because of amputation. He took a long time to tell me the position sense, but able to do that. Reflexes wherever it can be checked, appeared to be diminished. There is no yjqbxg-pe-nqul abnormality. I could not look at the patient's fundus. He appeared to be well-developed individual. He does not have any dysmorphic features of eyes, ears and face. He has no thyroid mass. Pulses are difficult to feel for me in [place] [address] CONSULTATION Name: NAVA SANTOS Room: [address] IN M.R.#: [id number] Admission: 07/09/19 Attend Phys: Alessia Byrnes MD Discharge: 07/15/19 Date of : 51 Report #: [id number] VITAL SIGNS: Blood pressure is 182/61, respirations 18, pulse is 60, temperature is 99.1. LABORATORY DATA: Indicates hemoglobin of 10.5. His MRI of the C-spine was reviewed. It showed some abnormality, but is not very prominent. IMPRESSION: The most likely etiology for the patient's numbness in the hand is probably carpal tunnel syndrome or neuropathy secondary to diabetes or combination. The patient is very convinced that it is his neck. He already had a neurosurgical appointment and he already had an EMG so I asked him to continue to follow up with those physicians. We do not have any EMG machine here and looks like the problem is chronic. I will suggest doing a TSH and vitamin B12 to complete the workup because of the muscle weakness. Otherwise, I do not have anything specific to add. He should follow up with his regular physicians after discharge for this problem. By: 1050 [id number] Jansen MD /nt
[2019-07-09 21:15] VITALS: BP 155/64
[2019-07-09] MEDS ORDERED: LIORESAL 10 MG10 MG PO (21:24)
[2019-07-09] MEDS ORDERED: MS CONTIN 30 MG30 MG PO (21:24)
[2019-07-09] MEDS ORDERED: SORINE 80 MG TA80 M1 PO (21:25)
[2019-07-09] MEDS ORDERED: PRADAXA75 MG PO (21:25)
[2019-07-09 21:58] LABS: ABSOLUTE BASOPHILS 0.1 thou/uL (0.0-0.2); ABSOLUTE LYMPHOCYTES 1.7 thou/uL (0.8-5.3); ABSOLUTE MONOCYTES 1.4 thou/uL (0.0-1.2); BASOPHILS 0.9 %; EOSINOPHILS 0.3 %; HEMATOCRIT 37.9 % (42.0-52.0); HEMOGLOBIN 12.6 gm/dL (14.0-18.0); LYMPHOCYTES 16.7 %; MCHC 33.2 g/dL (28.0-37.0); MCV 84.3 fL (80.0-100.0); MONOCYTES 13.4 %; MPV 7.7 fl. (7.2-11.1); NUCLEATED RBCS 0 /100WBC; PLATELET COUNT* 402 thou/uL (150-400); POLYS 68.7 %; RDW-CV 14.9 % (10.5-14.5); WBC 10.2 thou/uL (4.0-11.0)
[2019-07-09 22:10] LABS: ANION GAP 10 mmol/L (7-16); BUN 27 mg/dL (7-18); CALCIUM 8.9 mg/dL (8.5-10.1); CHLORIDE 101 mmol/L (98-107); CO2 26 mmol/L (21-32); CREATININE 1.5 mg/dL (0.6-1.3); GLUCOSE 114 mg/dL (70-99); POTASSIUM 3.5 mmol/L (3.5-5.1); SODIUM 137 mmol/L (136-145)
[2019-07-09 22:21] LABS: ALBUMIN 3.5 g/dL (3.4-5.0); ALKALINE PHOSPHATASE 141 U/L (46-116); SGOT 17 U/L (15-37); SGPT 21 U/L (30-65); TOTAL BILIRUBIN 1.9 mg/dL (<0.1-1.0); TOTAL PROTEIN 8.1 g/dL (6.4-8.2); TROPONIN-I LEVEL <0.06 ng/mL (<0.06)
[2019-07-09 23:20] VITALS: BP 155/64
[2019-07-10] VITALS: BP 172/73
[2019-07-10 08:05] VITALS: BP 171/71
[2019-07-10 10:32] LABS: URINE BILIRUBIN NEGATIVE (Negative); URINE BLOOD NEGATIVE (Negative); URINE CLARITY CLEAR; URINE COLOR YELLOW; URINE GLUCOSE-RANDOM NEGATIVE (Negative); URINE KETONES NEGATIVE (Negative); URINE LEUKOCYTES-REFLEX NEGATIVE (Negative); URINE NITRITE-REFLEX NEGATIVE (Negative); URINE PROTEIN TRACE (Negative); URINE UROBILINOGEN 0.2 E.U./dl (0.2-1.0)
--- NOTE | 2019-07-10 11:19 | EKG ---
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
[2019-07-10 12:00] LABS: AMP/METHAMP Negative (Negative); BARBITURATES Negative (Negative); BENZODIAZEPINES Negative (Negative); COCAINE Negative (Negative); METHADONE Negative (Negative); OPIATES POSITIVE (Negative); PCP Negative (Negative); THC Negative (Negative)
[2019-07-10 21:30] VITALS: BP 164/71
[2019-07-11 04:40] LABS: HEMATOCRIT 33.4 % (42.0-52.0); HEMOGLOBIN 10.9 gm/dL (14.0-18.0); MCH 27.7 pg (26.0-34.0); MCHC 32.7 g/dL (28.0-37.0); MCV 84.8 fL (80.0-100.0); RBC 3.94 mil/uL (4.50-6.00); RDW-CV 15.3 % (10.5-14.5); WBC 7.6 thou/uL (4.0-11.0)
[2019-07-11 06:26] LABS: ALBUMIN 2.9 g/dL (3.4-5.0); CALCIUM 8.2 mg/dL (8.5-10.1); CREATININE 1.4 mg/dL (0.6-1.3); MAGNESIUM 2.3 mg/dL (1.8-2.4); POTASSIUM 3.7 mmol/L (3.5-5.1); TOTAL BILIRUBIN 1.9 mg/dL (<0.1-1.0); TOTAL PROTEIN 6.5 g/dL (6.4-8.2)
[2019-07-11 07:47] VITALS: BP 153/56
[2019-07-11 16:00] VITALS: BP 140/75
[2019-07-11 21:28] VITALS: BP 149/59
[2019-07-12 04:52] LABS: HEMOGLOBIN 10.5 gm/dL (14.0-18.0); MPV 8.5 fl. (7.2-11.1); RBC 3.76 mil/uL (4.50-6.00); RDW-CV 15.3 % (10.5-14.5); WBC 6.7 thou/uL (4.0-11.0)
[2019-07-12 05:10] LABS: CALCIUM 8.1 mg/dL (8.5-10.1); CREATININE 1.4 mg/dL (0.6-1.3); POTASSIUM 3.5 mmol/L (3.5-5.1)
[2019-07-12 07:40] VITALS: BP 146/53
[2019-07-12 16:30] VITALS: BP 128/72
[2019-07-12 20:50] VITALS: BP 189/84
[2019-07-13 04:00] VITALS: BP 150/58
[2019-07-13 08:00] VITALS: BP 183/69
[2019-07-13 20:00] VITALS: BP 182/61
[2019-07-14 08:00] VITALS: BP 155/64
[2019-07-14 16:00] VITALS: BP 163/70
[2019-07-14 20:30] VITALS: BP 170/86
[2019-07-15 08:10] VITALS: BP 133/81
[2019-07-15] MEDS ORDERED: AUGMENTIN 875-1 EACH PO (08:47)
[2019-07-15] MEDS ORDERED: HYDROCODON-ACE1 EAC7 PO (08:47)
[2019-07-15] MEDS ORDERED: FLOMAX0.4 MG PO (08:47)
[2019-07-15] MEDS ORDERED: LIDOPATCH1 EACH TOP (08:47)
[2019-07-15] MEDS ORDERED: CIPRO500 MG PO (08:47)
[2019-07-15] MEDS ORDERED: MIRALAX17 GM PO (08:47)
[2019-07-15] MEDS ORDERED: AMITRIPTYLINE H25 M2 PO (08:47)
[2019-07-15] MEDS ORDERED: MS CONTIN 30 MG30 MG PO (08:47)
[2019-07-15] MEDS ORDERED: LYRICA 75 MG CA75 MG PO (08:47)
[2019-07-15] MEDS ORDERED: ACIDOPHILUS1 EAC4 PO (08:47)
[2019-07-15] MEDS ORDERED: ACETAMINOPHEN325 M1 PO (08:47)
[2019-07-15] MEDS ORDERED: HUMALOG100 UNIT/1 SUBQ (08:47)
[2019-07-15] MEDS ORDERED: LIPITOR 40 MG T40 M1 PO (08:47)
[2019-07-15] MEDS ORDERED: LANTUS100 UNIT/M SUBQ (08:47)
[2019-07-15] MEDS ORDERED: CELEXA20 MG PO (08:47)
[2019-07-15 11:12] VITALS: BP 133/81
== END 2019-07-15 14:30 | DRG 673 ==
LOC: M.ERS 21:14 → M.ORTHSURG 22:42 → M.TBA-ER 22:42 → M.ORTHSURG 22:42
PROVIDERS: Emergency Medicine; Internal Medicine; ADMIT Family Medicine
PROC: 0JBQ0ZZ Excision of Right Foot Subcutaneous Tissue and Fascia, Open Approach (ICD-10-PCS; principal; 2019-07-09)
DX: N17.0 Acute kidney failure with tubular necrosis (principal); G92 Toxic encephalopathy; D68.59 Other primary thrombophilia; G99.2 Myelopathy in diseases classified elsewhere; M86.8X7 Other osteomyelitis, ankle and foot; Z68.41 Body mass index [BMI] 40.0-44.9, adult; R33.9 Retention of urine, unspecified; E11.22 Type 2 diabetes mellitus with diabetic chronic kidney disease; N18.3 Chronic kidney disease, stage 3 (moderate); R62.7 Adult failure to thrive; E11.51 Type 2 diabetes mellitus with diabetic peripheral angiopathy without gangrene; N28.89 Other specified disorders of kidney and ureter; N28.1 Cyst of kidney, acquired; I12.9 Hypertensive chronic kidney disease with stage 1 through stage 4 chronic kidney disease, or unspecified chronic kidney disease; F32.9 Major depressive disorder, single episode, unspecified; M48.02 Spinal stenosis, cervical region; E11.69 Type 2 diabetes mellitus with other specified complication; Z86.14 Personal history of Methicillin resistant Staphylococcus aureus infection; Z90.49 Acquired absence of other specified parts of digestive tract; Z91.19 Patient's noncompliance with other medical treatment and regimen; Z89.431 Acquired absence of right foot; Z88.8 Allergy status to other drugs, medicaments and biological substances; Z87.891 Personal history of nicotine dependence; Z88.6 Allergy status to analgesic agent

== ENCOUNTER → 2019-07-21 | Outpatient (CLI) | payer MEDICARE, BC ==
[~2019-07-21] MED LIST changes: +ACETAMINOPHEN325 M1 PO; +ACIDOPHILUS1 EAC4 PO; +AMITRIPTYLINE H25 M2 PO; +AUGMENTIN 875-1 EACH PO; +CELEXA20 MG PO; +CIPRO500 MG PO; +FLOMAX0.4 MG PO; +HUMALOG100 UNIT/1 SUBQ; +HYDROCODON-ACE1 EAC7 PO; +LIDOPATCH1 EACH TOP; +LIPITOR 40 MG T40 M1 PO; +LYRICA 75 MG CA75 MG PO; +MIRALAX17 GM PO; +MS CONTIN 30 MG30 MG PO
--- NOTE | 2019-07-23 07:45 | CON ---
[address] [address] CONSULTATION Name: NAVA SANTOS Room: [facility] JAIDA Rob#: [id number] Admission: 07/21/19 Attend Phys: Varinder Santoro DPM Discharge: Date of : 51 Report #: [id number] THIS REPORT FOR: //name// CC: Varinder Masters DATE OF SERVICE: 07/21/2019 INFECTIOUS DISEASE CONSULTATION FOLLOWUP ATTENDING PHYSICIAN: Dr. Varinder Santoro. REASON FOR FOLLOWUP: Osteomyelitis involving his right foot. HISTORY OF PRESENT ILLNESS: He is post transmetatarsal amputation, he did require additional osteoectomy involving the first and second sites as well as the fourth site and actually has been on combination therapy since his hospitalization with ciprofloxacin as well as Augmentin. On evaluation, the wound actually appears significantly better. There is a notable marked diminishment in the overall dimensions particularly on the medial site. Wound was debrided by Dr. Santoro and there was actually no exposed bone at this point. He felt that the foot was cold, attempted Dopplers which were diminished, although he was able to get the foot to bleed. Overall degree of inflammation superficially was less and probably categorized as mild. On questioning, he has somewhat of a flat affect, which has been an issue, I think some underlying depression, although he is slightly more animated. He states he has been eating one meal a day. He has been offloading the site. ASSESSMENT AND PLAN: Deep infection involving the right foot. We will continue combination therapy based on previous cultures with growth of Pseudomonas as well as Enterococcus with ciprofloxacin and Augmentin. We will see him in 1 week. Continue offloading and wound care per Dr. Santoro. There is a consideration for additional vascular evaluation. <ELECTRONICALLY SIGNED> By: Lawson Ronquillo MD 07/23/19 0745 0913 1039Jolydia Ronquillo MD /nt
== END ==
LOC: M.WC 04:58
DX: T87.89 Other complications of amputation stump (principal); E11.621 Type 2 diabetes mellitus with foot ulcer; L97.512 Non-pressure chronic ulcer of other part of right foot with fat layer exposed; E11.42 Type 2 diabetes mellitus with diabetic polyneuropathy; E66.01 Morbid (severe) obesity due to excess calories; I87.2 Venous insufficiency (chronic) (peripheral); I48.91 Unspecified atrial fibrillation; I48.92 Unspecified atrial flutter; I25.10 Atherosclerotic heart disease of native coronary artery without angina pectoris; I10 Essential (primary) hypertension; J44.9 Chronic obstructive pulmonary disease, unspecified; M19.90 Unspecified osteoarthritis, unspecified site; F17.200 Nicotine dependence, unspecified, uncomplicated; F32.9 Major depressive disorder, single episode, unspecified; Z95.818 Presence of other cardiac implants and grafts; Z68.41 Body mass index [BMI] 40.0-44.9, adult; Y83.5 Amputation of limb(s) as the cause of abnormal reaction of the patient, or of later complication, without mention of misadventure at the time of the procedure

== ENCOUNTER → 2019-07-28 | Outpatient (CLI) | payer MEDICARE, BC ==
--- NOTE | 2019-07-30 07:44 | CON ---
[facility] [address] [place] [address] CONSULTATION Name: NAVA SANTOS Room: [facility] JAIDA Rob#: [id number] Admission: 07/28/19 Attend Phys: Varinder Santoro DPM Discharge: Date of : 51 Report #: [id number] THIS REPORT FOR: //name// CC: Varinder Masters DATE OF SERVICE: 07/28/2019 INFECTIOUS DISEASE CONSULTATION ATTENDING PHYSICIAN: Dr. Santoro. HISTORY OF PRESENT ILLNESS: The patient returns today in followup of chronic osteomyelitis involving the right foot. He is post-transmetatarsal amputation. He has got 2 residual ulcers, one medially over the first and second metatarsal sites and one over the fourth. Actually, both have improved over the course of the last week healing. Overall, there are decreased dimensions. The overall inflammation is lessened. On probing, there was no communication with hard tissue or bone. He generally feels better. He is much more animated. He was hospitalized with component of depression I believe as well and seems to be improved. He is currently on ciprofloxacin as well as Augmentin. ASSESSMENT AND PLAN: Chronic deep infection involving the right foot transmetatarsal amputation with incisional dehiscence. We will continue combination therapy with ciprofloxacin 500 p.o. b.i.d. as well as Augmentin 875 b.i.d. for polymicrobial etiology. Continue to offload the site. Wound care per Dr. Santoro. Optimize his nutritional status. We will see him in 1 week's time. Check weekly labs, CBC, and CMP. <ELECTRONICALLY SIGNED> By: Lawson Ronquillo MD 07/30/19 0744 0849 1950Jolydia Ronquillo MD /nt
== END ==
LOC: M.WC 05:00
DX: T87.89 Other complications of amputation stump (principal); E11.621 Type 2 diabetes mellitus with foot ulcer; L97.512 Non-pressure chronic ulcer of other part of right foot with fat layer exposed; L03.116 Cellulitis of left lower limb; E11.42 Type 2 diabetes mellitus with diabetic polyneuropathy; E66.01 Morbid (severe) obesity due to excess calories; I87.2 Venous insufficiency (chronic) (peripheral); I10 Essential (primary) hypertension; I48.91 Unspecified atrial fibrillation; I48.92 Unspecified atrial flutter; I25.10 Atherosclerotic heart disease of native coronary artery without angina pectoris; M19.90 Unspecified osteoarthritis, unspecified site; J44.9 Chronic obstructive pulmonary disease, unspecified; F17.200 Nicotine dependence, unspecified, uncomplicated; F32.9 Major depressive disorder, single episode, unspecified; Z68.41 Body mass index [BMI] 40.0-44.9, adult; Z95.818 Presence of other cardiac implants and grafts; Y83.5 Amputation of limb(s) as the cause of abnormal reaction of the patient, or of later complication, without mention of misadventure at the time of the procedure

== ENCOUNTER → 2019-08-04 | Outpatient (CLI) | payer MEDICARE, BC ==
--- NOTE | 2019-08-05 12:35 | CON ---
[address] [address] CONSULTATION Name: NAVA SANTOS Tash Room: [facility] JAIDA Rob#: [id number] Admission: 08/04/19 Attend Phys: Varinder Santoro DPM Discharge: Date of : 51 Report #: [id number] THIS REPORT FOR: //name// CC: Varnider Masters DATE OF SERVICE: 08/04/2019 INFECTIOUS DISEASE CONSULTATION ATTENDING PHYSICIAN: Varinder Maher DPM HISTORY OF PRESENT ILLNESS: He has got chronic osteomyelitis involving his right foot previous area of transmetatarsal amputation. There are 2 sites of dehiscence. PHYSICAL EXAMINATION: On examination, the overall appearance of the foot is improved. There is less inflammation noted superficially. The wounds actually have contracted in size. There is no connection or communication with hard tissue in particular bone. Wound was debrided and appeared to have good granulation tissue. ASSESSMENT AND PLAN: Chronic osteomyelitis. At this point, we would complete a course of antimicrobial therapy. Continue current approach and wound care per Dr. Santoro. We will see him in followup in 1 week. <ELECTRONICALLY SIGNED> By: Lawson Ronquillo MD 08/05/19 1235 0851 0911Jolydia Ronquillo MD /nt
== END ==
LOC: M.WC 05:22
DX: T87.89 Other complications of amputation stump (principal); E11.621 Type 2 diabetes mellitus with foot ulcer; L97.512 Non-pressure chronic ulcer of other part of right foot with fat layer exposed; E11.42 Type 2 diabetes mellitus with diabetic polyneuropathy; E66.01 Morbid (severe) obesity due to excess calories; I87.2 Venous insufficiency (chronic) (peripheral); I10 Essential (primary) hypertension; I48.91 Unspecified atrial fibrillation; I48.92 Unspecified atrial flutter; I25.10 Atherosclerotic heart disease of native coronary artery without angina pectoris; J44.9 Chronic obstructive pulmonary disease, unspecified; M19.90 Unspecified osteoarthritis, unspecified site; F32.9 Major depressive disorder, single episode, unspecified; F17.200 Nicotine dependence, unspecified, uncomplicated; Z68.41 Body mass index [BMI] 40.0-44.9, adult; Z95.818 Presence of other cardiac implants and grafts

== ENCOUNTER → 2019-08-11 | Outpatient (CLI) | payer MEDICARE, BC | LOC: M.WC 04:50 | DX: T87.89 Other complications of amputation stump (principal); E11.621 Type 2 diabetes mellitus with foot ulcer; L97.512 Non-pressure chronic ulcer of other part of right foot with fat layer exposed; L03.116 Cellulitis of left lower limb; E66.01 Morbid (severe) obesity due to excess calories; I10 Essential (primary) hypertension; I48.91 Unspecified atrial fibrillation; I48.92 Unspecified atrial flutter; I25.10 Atherosclerotic heart disease of native coronary artery without angina pectoris; I87.2 Venous insufficiency (chronic) (peripheral); J44.9 Chronic obstructive pulmonary disease, unspecified; M19.90 Unspecified osteoarthritis, unspecified site; F32.9 Major depressive disorder, single episode, unspecified; F17.200 Nicotine dependence, unspecified, uncomplicated; Z68.41 Body mass index [BMI] 40.0-44.9, adult; Z95.818 Presence of other cardiac implants and grafts; Y83.5 Amputation of limb(s) as the cause of abnormal reaction of the patient, or of later complication, without mention of misadventure at the time of the procedure ==

== ENCOUNTER → 2019-09-08 | Outpatient (CLI) | payer MEDICARE, BC | LOC: M.WC 04:00 | DX: T87.89 Other complications of amputation stump (principal); E11.621 Type 2 diabetes mellitus with foot ulcer; L97.512 Non-pressure chronic ulcer of other part of right foot with fat layer exposed; L03.116 Cellulitis of left lower limb; E66.01 Morbid (severe) obesity due to excess calories; I48.91 Unspecified atrial fibrillation; I48.92 Unspecified atrial flutter; I10 Essential (primary) hypertension; I25.10 Atherosclerotic heart disease of native coronary artery without angina pectoris; I87.2 Venous insufficiency (chronic) (peripheral); J44.9 Chronic obstructive pulmonary disease, unspecified; M19.90 Unspecified osteoarthritis, unspecified site; F32.9 Major depressive disorder, single episode, unspecified; F17.200 Nicotine dependence, unspecified, uncomplicated; Z68.41 Body mass index [BMI] 40.0-44.9, adult; Z95.818 Presence of other cardiac implants and grafts; Y83.5 Amputation of limb(s) as the cause of abnormal reaction of the patient, or of later complication, without mention of misadventure at the time of the procedure ==

== ENCOUNTER → 2019-09-15 | Outpatient (CLI) | payer MEDICARE, BC | LOC: M.WC 05:30 | DX: T87.89 Other complications of amputation stump (principal); E11.621 Type 2 diabetes mellitus with foot ulcer; L97.516 Non-pressure chronic ulcer of other part of right foot with bone involvement without evidence of necrosis; L03.116 Cellulitis of left lower limb; L84 Corns and callosities; E11.69 Type 2 diabetes mellitus with other specified complication; M86.8X7 Other osteomyelitis, ankle and foot; E11.42 Type 2 diabetes mellitus with diabetic polyneuropathy; E66.01 Morbid (severe) obesity due to excess calories; I10 Essential (primary) hypertension; I48.91 Unspecified atrial fibrillation; I48.92 Unspecified atrial flutter; I25.10 Atherosclerotic heart disease of native coronary artery without angina pectoris; I87.2 Venous insufficiency (chronic) (peripheral); J44.9 Chronic obstructive pulmonary disease, unspecified; M19.90 Unspecified osteoarthritis, unspecified site; F17.200 Nicotine dependence, unspecified, uncomplicated; F32.9 Major depressive disorder, single episode, unspecified; Z68.41 Body mass index [BMI] 40.0-44.9, adult; Z95.818 Presence of other cardiac implants and grafts; Y83.5 Amputation of limb(s) as the cause of abnormal reaction of the patient, or of later complication, without mention of misadventure at the time of the procedure ==

== ENCOUNTER → 2019-09-29 | Outpatient (CLI) | payer MEDICARE, BC | LOC: M.WC 05:02 | DX: T87.89 Other complications of amputation stump (principal); E11.621 Type 2 diabetes mellitus with foot ulcer; L97.512 Non-pressure chronic ulcer of other part of right foot with fat layer exposed; L03.116 Cellulitis of left lower limb; L84 Corns and callosities; E66.01 Morbid (severe) obesity due to excess calories; I10 Essential (primary) hypertension; I48.91 Unspecified atrial fibrillation; I48.92 Unspecified atrial flutter; I25.10 Atherosclerotic heart disease of native coronary artery without angina pectoris; I87.2 Venous insufficiency (chronic) (peripheral); J44.9 Chronic obstructive pulmonary disease, unspecified; M19.90 Unspecified osteoarthritis, unspecified site; F17.200 Nicotine dependence, unspecified, uncomplicated; F32.9 Major depressive disorder, single episode, unspecified; Z95.818 Presence of other cardiac implants and grafts; Z68.41 Body mass index [BMI] 40.0-44.9, adult; Y83.5 Amputation of limb(s) as the cause of abnormal reaction of the patient, or of later complication, without mention of misadventure at the time of the procedure ==

== ENCOUNTER → 2019-10-13 | Outpatient (CLI) | payer MEDICARE, BC | LOC: M.WC 05:43 | DX: T87.89 Other complications of amputation stump (principal); E11.621 Type 2 diabetes mellitus with foot ulcer; L97.516 Non-pressure chronic ulcer of other part of right foot with bone involvement without evidence of necrosis; L03.116 Cellulitis of left lower limb; L84 Corns and callosities; E11.69 Type 2 diabetes mellitus with other specified complication; M86.8X7 Other osteomyelitis, ankle and foot; E11.42 Type 2 diabetes mellitus with diabetic polyneuropathy; E66.01 Morbid (severe) obesity due to excess calories; I87.2 Venous insufficiency (chronic) (peripheral); I10 Essential (primary) hypertension; I48.91 Unspecified atrial fibrillation; I48.92 Unspecified atrial flutter; I25.10 Atherosclerotic heart disease of native coronary artery without angina pectoris; J44.9 Chronic obstructive pulmonary disease, unspecified; M19.90 Unspecified osteoarthritis, unspecified site; F17.200 Nicotine dependence, unspecified, uncomplicated; F32.9 Major depressive disorder, single episode, unspecified; Z68.41 Body mass index [BMI] 40.0-44.9, adult; Z95.818 Presence of other cardiac implants and grafts; Y83.5 Amputation of limb(s) as the cause of abnormal reaction of the patient, or of later complication, without mention of misadventure at the time of the procedure ==

== ENCOUNTER → 2019-11-03 | Outpatient (CLI) | payer MEDICARE, BC | LOC: M.WC 05:19 | DX: E11.621 Type 2 diabetes mellitus with foot ulcer (principal); L97.512 Non-pressure chronic ulcer of other part of right foot with fat layer exposed; L84 Corns and callosities; L03.116 Cellulitis of left lower limb; E66.01 Morbid (severe) obesity due to excess calories; I87.2 Venous insufficiency (chronic) (peripheral); I10 Essential (primary) hypertension; I48.91 Unspecified atrial fibrillation; I25.10 Atherosclerotic heart disease of native coronary artery without angina pectoris; G47.00 Insomnia, unspecified; J44.9 Chronic obstructive pulmonary disease, unspecified; M19.90 Unspecified osteoarthritis, unspecified site; F32.9 Major depressive disorder, single episode, unspecified; F17.200 Nicotine dependence, unspecified, uncomplicated; Z95.818 Presence of other cardiac implants and grafts; Z89.421 Acquired absence of other right toe(s); Z68.41 Body mass index [BMI] 40.0-44.9, adult ==

== ENCOUNTER → 2019-11-24 | Outpatient (CLI) | payer MEDICARE, BC | LOC: M.WC 13:26 | DX: T87.89 Other complications of amputation stump (principal); E11.621 Type 2 diabetes mellitus with foot ulcer; L97.511 Non-pressure chronic ulcer of other part of right foot limited to breakdown of skin; L03.116 Cellulitis of left lower limb; L84 Corns and callosities; E11.69 Type 2 diabetes mellitus with other specified complication; M86.8X7 Other osteomyelitis, ankle and foot; E66.01 Morbid (severe) obesity due to excess calories; I87.2 Venous insufficiency (chronic) (peripheral); I10 Essential (primary) hypertension; I48.91 Unspecified atrial fibrillation; I25.10 Atherosclerotic heart disease of native coronary artery without angina pectoris; J44.9 Chronic obstructive pulmonary disease, unspecified; M19.90 Unspecified osteoarthritis, unspecified site; F17.200 Nicotine dependence, unspecified, uncomplicated; F32.9 Major depressive disorder, single episode, unspecified; Z95.818 Presence of other cardiac implants and grafts; Z89.421 Acquired absence of other right toe(s); Z68.41 Body mass index [BMI] 40.0-44.9, adult; Y83.5 Amputation of limb(s) as the cause of abnormal reaction of the patient, or of later complication, without mention of misadventure at the time of the procedure ==

== ENCOUNTER → 2019-12-08 | Outpatient (CLI) | payer MEDICARE, BC | LOC: M.WC 05:07 | DX: T87.89 Other complications of amputation stump (principal); E11.621 Type 2 diabetes mellitus with foot ulcer; L97.511 Non-pressure chronic ulcer of other part of right foot limited to breakdown of skin; L03.116 Cellulitis of left lower limb; L84 Corns and callosities; E66.01 Morbid (severe) obesity due to excess calories; I10 Essential (primary) hypertension; I87.2 Venous insufficiency (chronic) (peripheral); I48.91 Unspecified atrial fibrillation; I25.10 Atherosclerotic heart disease of native coronary artery without angina pectoris; J44.9 Chronic obstructive pulmonary disease, unspecified; M19.90 Unspecified osteoarthritis, unspecified site; F32.9 Major depressive disorder, single episode, unspecified; F17.200 Nicotine dependence, unspecified, uncomplicated; Z68.41 Body mass index [BMI] 40.0-44.9, adult; Z95.818 Presence of other cardiac implants and grafts; Z89.421 Acquired absence of other right toe(s); Y83.5 Amputation of limb(s) as the cause of abnormal reaction of the patient, or of later complication, without mention of misadventure at the time of the procedure ==

== ENCOUNTER → 2019-12-15 | Outpatient (CLI) | payer MEDICARE, BC | LOC: M.WC 04:31 | DX: T81.89XD Other complications of procedures, not elsewhere classified, subsequent encounter (principal); E11.621 Type 2 diabetes mellitus with foot ulcer; L97.512 Non-pressure chronic ulcer of other part of right foot with fat layer exposed; L03.116 Cellulitis of left lower limb; E11.69 Type 2 diabetes mellitus with other specified complication; M86.8X7 Other osteomyelitis, ankle and foot; E11.42 Type 2 diabetes mellitus with diabetic polyneuropathy; E66.01 Morbid (severe) obesity due to excess calories; I87.2 Venous insufficiency (chronic) (peripheral); I10 Essential (primary) hypertension; I48.91 Unspecified atrial fibrillation; I25.10 Atherosclerotic heart disease of native coronary artery without angina pectoris; J44.9 Chronic obstructive pulmonary disease, unspecified; M19.90 Unspecified osteoarthritis, unspecified site; F32.9 Major depressive disorder, single episode, unspecified; F17.200 Nicotine dependence, unspecified, uncomplicated; Z68.41 Body mass index [BMI] 40.0-44.9, adult; Z95.818 Presence of other cardiac implants and grafts; Z89.421 Acquired absence of other right toe(s); Y83.8 Other surgical procedures as the cause of abnormal reaction of the patient, or of later complication, without mention of misadventure at the time of the procedure ==

== ENCOUNTER → 2019-12-22 | Outpatient (CLI) | payer MEDICARE, BC | LOC: M.WC 02:23 | DX: T81.89XD Other complications of procedures, not elsewhere classified, subsequent encounter (principal); E11.621 Type 2 diabetes mellitus with foot ulcer; L97.512 Non-pressure chronic ulcer of other part of right foot with fat layer exposed; I87.2 Venous insufficiency (chronic) (peripheral); L03.116 Cellulitis of left lower limb; E11.69 Type 2 diabetes mellitus with other specified complication; M86.8X7 Other osteomyelitis, ankle and foot; E11.42 Type 2 diabetes mellitus with diabetic polyneuropathy; E66.01 Morbid (severe) obesity due to excess calories; I10 Essential (primary) hypertension; I48.91 Unspecified atrial fibrillation; I25.10 Atherosclerotic heart disease of native coronary artery without angina pectoris; J44.9 Chronic obstructive pulmonary disease, unspecified; M19.90 Unspecified osteoarthritis, unspecified site; F17.200 Nicotine dependence, unspecified, uncomplicated; F32.9 Major depressive disorder, single episode, unspecified; Z68.41 Body mass index [BMI] 40.0-44.9, adult; Z95.818 Presence of other cardiac implants and grafts; Z89.421 Acquired absence of other right toe(s); Y83.8 Other surgical procedures as the cause of abnormal reaction of the patient, or of later complication, without mention of misadventure at the time of the procedure ==

== ENCOUNTER → 2019-12-29 | Outpatient (CLI) | payer MEDICARE, BC | LOC: M.WC 01:33 | DX: T81.89XD Other complications of procedures, not elsewhere classified, subsequent encounter (principal); E11.621 Type 2 diabetes mellitus with foot ulcer; L97.511 Non-pressure chronic ulcer of other part of right foot limited to breakdown of skin; L03.116 Cellulitis of left lower limb; L84 Corns and callosities; E11.40 Type 2 diabetes mellitus with diabetic neuropathy, unspecified; E66.01 Morbid (severe) obesity due to excess calories; I87.2 Venous insufficiency (chronic) (peripheral); I10 Essential (primary) hypertension; I48.91 Unspecified atrial fibrillation; I25.10 Atherosclerotic heart disease of native coronary artery without angina pectoris; J44.9 Chronic obstructive pulmonary disease, unspecified; M19.90 Unspecified osteoarthritis, unspecified site; F32.9 Major depressive disorder, single episode, unspecified; F17.200 Nicotine dependence, unspecified, uncomplicated; Z95.818 Presence of other cardiac implants and grafts; Z89.421 Acquired absence of other right toe(s); Z68.41 Body mass index [BMI] 40.0-44.9, adult; Y83.8 Other surgical procedures as the cause of abnormal reaction of the patient, or of later complication, without mention of misadventure at the time of the procedure ==

== ENCOUNTER 2020-10-02 23:17 | Emergency (ER) | payer MEDICARE, BC ==
[~2020-10-02] VITALS: Ht 182.9 cm; Wt 115.7 kg
[~2020-10-02 23:17] MED LIST changes: +ASA81BEC PO; +OMEPRAZOLE40 MG PO
[2020-10-02] MEDS ORDERED: MORPHINE ER (23:43)
[2020-10-03 01:03] LABS: HEMATOCRIT 41.1 % (42.0-52.0); HEMOGLOBIN 14.1 gm/dL (14.0-18.0); MCH 32.9 pg (26.0-34.0); MCHC 34.4 g/dL (28.0-37.0); MCV 95.7 fL (80.0-100.0); NUCLEATED RBCS 0 /100WBC; PLATELET COUNT* 227 thou/uL (150-400)
[2020-10-03 01:07] LABS: CALCIUM 7.9 mg/dL (8.5-10.1); CREATININE 1.5 mg/dL (0.6-1.3)
[2020-10-03 01:21] LABS: URINE BILIRUBIN NEGATIVE (Negative); URINE BLOOD NEGATIVE (Negative); URINE CLARITY CLEAR; URINE COLOR YELLOW; URINE GLUCOSE-RANDOM 1+ (Negative); URINE KETONES NEGATIVE (Negative); URINE LEUKOCYTES-REFLEX NEGATIVE (Negative); URINE NITRITE-REFLEX NEGATIVE (Negative); URINE PROTEIN NEGATIVE (Negative); URINE SPECIFIC GRAVITY 1.015 (1.005-1.030); URINE UROBILINOGEN 0.2 E.U./dl (0.2-1.0)
[2020-10-03 01:54] LABS: ABSOLUTE LYMPHOCYTES 0.7 thou/uL (0.8-5.3); ABSOLUTE MONOCYTES 0.5 thou/uL (0.0-1.2); ABSOLUTE NEUTROPHILS 11.8 thou/uL (1.6-8.1)
[2020-10-03 01:55] LABS: PLATELET ESTIMATE ADEQUATE
[2020-10-03 02:24] VITALS: BP 123/56
== END 2020-10-03 02:24 | disposition home or self-care (01) ==
LOC: M.ERS 23:17
PROVIDERS: Emergency Medicine
DX: R33.9 Retention of urine, unspecified (principal); E11.9 Type 2 diabetes mellitus without complications; I10 Essential (primary) hypertension; Z86.14 Personal history of Methicillin resistant Staphylococcus aureus infection; Z88.8 Allergy status to other drugs, medicaments and biological substances; Z87.891 Personal history of nicotine dependence

== ENCOUNTER → 2020-10-17 | Outpatient (CLI) | payer MEDICARE, BC ==
[~2020-10-17] MED LIST changes: +MORPHINE ER
== END ==
LOC: M.ULTRA 10-10 13:00
PROVIDERS: ATTEND Family Medicine
DX: M79.661 Pain in right lower leg (principal)

== ENCOUNTER 2021-01-05 16:48 | Emergency (ER) | payer MEDICARE, BC ==
[~2021-01-05] VITALS: Ht 182.9 cm; Wt 116.6 kg
[2021-01-05 17:23] LABS: ABSOLUTE BASOPHILS 0.1 thou/uL (0.0-0.2); ABSOLUTE EOSINOPHILS 0.3 thou/uL (0.0-0.7); ABSOLUTE LYMPHOCYTES 1.3 thou/uL (0.8-5.3); ABSOLUTE MONOCYTES 1.2 thou/uL (0.0-1.2); ABSOLUTE NEUTROPHILS 7.4 thou/uL (1.6-8.1); BASOPHILS 0.9 %; EOSINOPHILS 2.9 %; HEMOGLOBIN 13.6 gm/dL (14.0-18.0); LYMPHOCYTES 12.9 %; MCH 31.1 pg (26.0-34.0); MCHC 33.9 g/dL (28.0-37.0); MCV 91.6 fL (80.0-100.0); MONOCYTES 11.4 %; MPV 8.1 fl. (7.2-11.1); NUCLEATED RBCS 0 /100WBC; PLATELET COUNT* 245 thou/uL (150-400); POLYS 71.9 %; RBC 4.37 mil/uL (4.50-6.00); RDW-CV 14.4 % (10.5-14.5); WBC 10.3 thou/uL (4.0-11.0)
[2021-01-05 17:34] LABS: CALCIUM 8.5 mg/dL (8.5-10.1); CREATININE 1.2 mg/dL (0.6-1.3); POTASSIUM 4.2 mmol/L (3.5-5.1)
[2021-01-05 17:44] LABS: ALBUMIN 3.1 g/dL (3.4-5.0); TOTAL BILIRUBIN 0.9 mg/dL (<0.1-1.0); TOTAL PROTEIN 6.8 g/dL (6.4-8.2)
[2021-01-05 19:31] LABS: URINE BILIRUBIN NEGATIVE (Negative); URINE BLOOD NEGATIVE (Negative); URINE CLARITY CLEAR; URINE COLOR YELLOW; URINE GLUCOSE-RANDOM NEGATIVE (Negative); URINE KETONES NEGATIVE (Negative); URINE LEUKOCYTES-REFLEX NEGATIVE (Negative); URINE NITRITE-REFLEX NEGATIVE (Negative); URINE PROTEIN NEGATIVE (Negative); URINE UROBILINOGEN 0.2 E.U./dl (0.2-1.0)
[2021-01-05 19:47] VITALS: BP 146/58
--- NOTE | 2021-01-06 10:07 | EKG ---
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: [facility] : 1955 Requested By: Jay Galvan Order Number: [id number] MD: Golden Crenshaw Measurements Intervals [place] Rate: 71 P: 15 [place]: 200 QRS: -2 QRSD: 94 T: 48 QT: 442 QTc: 481 Interpretive Statements Sinus rhythm Atrial premature complexes RSR' in V1 or V2, right VCD or RVH Left ventricular hypertrophy Compared to ECG 03/08/2020 19:06:45 Atrial premature complex(es) now present Left ventricular hypertrophy now present Sinus bradycardia no longer present Ventricular premature complex(es) no longer present Electronically Signed On 01-06-2021 10:06:55 DIGITAL COMMUNITY MANAGER by Golden Crenshaw [email or web address] <ELECTRONICALLY SIGNED> By: Golden Crenshaw MD, [facility] 01/06/21 1006 1731 173 Golden Crenshaw MD, [facility] /EPI
== END 2021-01-05 19:47 | disposition home or self-care (01) ==
LOC: M.ERS 16:48
PROVIDERS: Emergency Medicine Emergency Medical Services
DX: K59.00 Constipation, unspecified (principal); G89.29 Other chronic pain; I10 Essential (primary) hypertension; E11.9 Type 2 diabetes mellitus without complications; F17.210 Nicotine dependence, cigarettes, uncomplicated; Z86.14 Personal history of Methicillin resistant Staphylococcus aureus infection; Z88.8 Allergy status to other drugs, medicaments and biological substances; Z79.4 Long term (current) use of insulin

== ENCOUNTER 2021-01-18 19:47 | Inpatient (IN) | payer MEDICARE, BC ==
[~2021-01-18] VITALS: Ht 182.9 cm; Wt 108.4 kg
[2021-01-18 19:52] VITALS: BP 166/77
[2021-01-18 20:13] LABS: ABSOLUTE BASOPHILS 0.1 thou/uL (0.0-0.2); ABSOLUTE LYMPHOCYTES 1.7 thou/uL (0.8-5.3); ABSOLUTE NEUTROPHILS 6.3 thou/uL (1.6-8.1); EOSINOPHILS 0.2 %; HEMATOCRIT 44.9 % (42.0-52.0); HEMOGLOBIN 15.1 gm/dL (14.0-18.0); LYMPHOCYTES 18.3 %; MCH 30.7 pg (26.0-34.0); MCHC 33.5 g/dL (28.0-37.0); MCV 91.7 fL (80.0-100.0); MONOCYTES 11.3 %; MPV 8.3 fl. (7.2-11.1); NUCLEATED RBCS 0 /100WBC; PLATELET COUNT* 292 thou/uL (150-400); POLYS 69.2 %; RDW-CV 14.8 % (10.5-14.5)
[2021-01-18 20:20] LABS: CREATININE 1.2 mg/dL (0.6-1.3); POTASSIUM 3.6 mmol/L (3.5-5.1)
[2021-01-18 20:24] LABS: ALBUMIN 3.5 g/dL (3.4-5.0); MAGNESIUM 2.1 mg/dL (1.8-2.4); TOTAL PROTEIN 7.4 g/dL (6.4-8.2)
[2021-01-18 22:15] VITALS: BP 160/76
[2021-01-18 22:16] LABS: URINE BILIRUBIN NEGATIVE (Negative); URINE BLOOD NEGATIVE (Negative); URINE CLARITY CLEAR; URINE COLOR YELLOW; URINE GLUCOSE-RANDOM NEGATIVE (Negative); URINE KETONES NEGATIVE (Negative); URINE LEUKOCYTES-REFLEX NEGATIVE (Negative); URINE NITRITE-REFLEX NEGATIVE (Negative); URINE PROTEIN NEGATIVE (Negative); URINE UROBILINOGEN 0.2 E.U./dl (0.2-1.0)
[2021-01-18 22:26] LABS: AMP/METHAMP Negative (Negative); BARBITURATES Negative (Negative); BENZODIAZEPINES Negative (Negative); COCAINE Negative (Negative); METHADONE Negative (Negative); OPIATES POSITIVE (Negative); PCP Negative (Negative); THC Negative (Negative)
[2021-01-18 22:30] VITALS: BP 152/57
[2021-01-18] MEDS ORDERED: TRULICITY0.75 MG/0. SUBQ (23:07)
[2021-01-18] MEDS ORDERED: ELIQUIS2.5 MG PO (23:08)
[2021-01-19 04:00] VITALS: BP 141/66
[2021-01-19 08:20] VITALS: BP 151/69
--- NOTE | 2021-01-19 09:32 | EKG ---
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 : 1955 Requested By: Cherelle Faria Order Number: [id number] MD: Golden Crenshaw Measurements Intervals [place] Rate: 78 P: -17 [place]: 195 QRS: -6 QRSD: 93 T: 45 QT: 426 QTc: 486 Interpretive Statements Sinus rhythm Borderline prolonged QT interval Compared to ECG 01/05/2021 17:31:38 Atrial premature complex(es) no longer present Left ventricular hypertrophy no longer present Electronically Signed On 01-19-2021 9:32:34 INSTRUMENTATION AND CONTROL TECHNICIAN by Golden Crenshaw [email or web address] <ELECTRONICALLY SIGNED> By: Golden Crenshaw MD, FAC 01/19/21931 53 53 Golden Crenshaw MD, FAC /EPI
[2021-01-19 12:00] VITALS: BP 160/66
--- NOTE | 2021-01-19 16:10 | CON ---
[address] [address] CONSULTATION Name: NAVA SANTOS Tash Room: [address] IN .R.#: [id number] Admission: 01/19/21 Attend Phys: Caden Blum MD Discharge: Date of : 51 Report #: [id number] THIS REPORT FOR: cc: Yuliet Duarte Maggie M. DO ~ Celeste Story DO NEUROLOGY CONSULT HISTORY OF PRESENT ILLNESS: The patient is a 65-year-old male who states that for the past 2 months he has not felt well. He has had a new pain pump put in. The first pain pump was put in 2014 two months ago and was revised. He states that in the pain pump, he was given some type of nerve agent, which she felt was making him dizzy. This medication was removed and he was given a combination of morphine and baclofen, which he has had before. However, the dizziness continued, so on Friday, the pain pump was turned off and he was given a prescription for baclofen and morphine to take by mouth. The patient states that whenever he would stand up to walk, he would go a few feet and feel unsteady on his feet. He has never had a spinning sensation. The patient has had amputation of his toes secondary to diabetes mellitus. He has a history of peripheral neuropathy. However, he denies numbness in his feet. He does feel unsteady on his feet, however. At this moment, he states he feels very tired because he has not been sleeping well at night. Aside from that, he has back pain secondary to scoliosis. While he is lying in bed, he does not feel dizzy at all. PAST MEDICAL HISTORY: Atrial fibrillation, cervical spinal stenosis, diabetes mellitus, hypertension, coronary artery disease, obstructive sleep apnea. PAST SURGICAL HISTORY: Right foot amputation, spinal fusion, pain pump placement 2014 and 2020. MEDICATIONS: Tamsulosin 0.4 mg at bedtime, MiraLax 17 grams daily, Humalog insulin 5 units before meals, baclofen 10 mg t.i.d., duloxetine 60 mg b.i.d., Lantus 60 units b.i.d., Vytorin 10-40 at bedtime, melatonin 10 mg at bedtime, omeprazole daily, Aldactazide 25-25 half tablet at bedtime, Voltaren gel daily, Lyrica 75 mg t.i.d., aspirin 81 mg daily, sotalol 80 mg b.i.d., morphine 30 mg p.r.n. Pradaxa 75 mg daily, multivitamin daily. ALLERGIES: BUPROPION AND NIACIN. PHYSICAL EXAMINATION: VITAL SIGNS: Temperature 36.7, pulse rate 60, respiratory rate 17, [place] [address] CONSULTATION Name: NAVA SANTOS Room: [address]#: [id number] Admission: 01/19/21 Attend Phys: Caden Blum MD Discharge: Date of : 51 Report #: [id number] pressure 160/66, bedside pulse oximetry 95%. LABORATORY DATA: Hematology: White blood cell count 9; hemoglobin 15.1; hematocrit 44.9; MCV 91.7; platelet count 292,000. Urinalysis negative. Chemistry: Sodium 137, potassium 3.6, chloride 99, carbon dioxide 30, BUN 15, creatinine 1.2, glucose 107, hemoglobin A1c pending. Liver functions normal with the exception of alkaline phosphatase, which is elevated at 160. TSH 0.107. IMAGING STUDIES: CT scan of the head is normal. Chest x-ray shows no acute pulmonary process. NEUROLOGIC: Cranial nerves 2-12 are grossly intact. Motor exam demonstrates symmetrical strength in all 4 extremities with tone and bulk normal. Reflexes are trace throughout. Plantar responses on the left are flexor. The right big toe has been amputated. There is no evidence of dysmetria in the upper extremities. Sensory exam was intact to light touch. There was diminished proprioception at the left great toe. Gait was not tested for safety reasons. IMPRESSION: This patient states that his major complaints at this time are insomnia, back pain and unsteadiness when he walks. The patient has had a CT scan of the head. This is unremarkable. I do not think the patient has vertigo by the description of his symptoms. He has unsteadiness when he walks. This could be secondary to medication effect compounded by an underlying diagnosis of diabetic peripheral neuropathy. My recommendation would be to do an outpatient EMG to determine the degree of neuropathy that this patient has at the moment. The patient is on baclofen 10 mg t.i.d. p.r.n. along with morphine 30 mg q. 12 hours p.r.n. The patient is taking the dose twice a day as prescribed. I think perhaps a course of physical therapy will also be helpful to the patient. This has already been ordered. I thank you for your kind referral of this patient and will reevaluate him tomorrow. <ELECTRONICALLY SIGNED> By: Celeste Story DO 01/19/21 1610 1521 1555Roxane Becca Story DO /nt
[2021-01-19 16:27] VITALS: BP 160/60
[2021-01-19 20:00] VITALS: BP 149/63
[2021-01-20] VITALS (7 sets, daily range): BP systolic 144–196; BP diastolic 59–80
[2021-01-21 00:09] VITALS: BP 147/73
[2021-01-21 04:23] VITALS: BP 160/86
[2021-01-21 04:24] LABS: HEMATOCRIT 40.6 % (42.0-52.0); HEMOGLOBIN 13.7 gm/dL (14.0-18.0); MCH 30.8 pg (26.0-34.0); MCHC 33.8 g/dL (28.0-37.0); MCV 91.2 fL (80.0-100.0); MPV 8.4 fl. (7.2-11.1); RBC 4.44 mil/uL (4.50-6.00); RDW-CV 14.6 % (10.5-14.5); WBC 7.3 thou/uL (4.0-11.0)
[2021-01-21 04:33] LABS: CALCIUM 8.8 mg/dL (8.5-10.1); POTASSIUM 3.6 mmol/L (3.5-5.1)
[2021-01-21 07:51] VITALS: BP 157/70
[2021-01-21 10:26] VITALS: BP 157/70
[2021-01-21 12:08] VITALS: BP 157/70
[2021-01-21 14:28] VITALS: BP 157/70
--- NOTE | 2021-01-24 14:09 | CON ---
[address] [address] CONSULTATION Name: DANIELLENAVA Bianchi Room: [address] IN ..#: [id number] Admission: 01/19/21 Attend Phys: Caden Blum MD Discharge: 01/21/21 Date of : 51 Report #: [id number] THIS REPORT FOR: cc: Yuliet Duarte Maggie M. DO ~ Vairnder Santoro DPM DATE OF SERVICE: 01/19/2021 ADMISSION DIAGNOSIS: Encephalopathy. CHIEF COMPLAINT: The patient admitted to the Emergency Department for sudden onset dizziness and unsteady gait. His pain pump was shut off the day before admission. I have been following him as an outpatient in my office for a right distal foot callus, which I recently biopsied and came back verruca. I saw him in my office several days ago and debrided the lesion and I then applied a topical antibiotic and gauze bandage. The patient wears diabetic shoes with custom inserts. I previously amputated the right first through fifth toes for chronic soft tissue infection and osteomyelitis. He has type 2 diabetes mellitus with peripheral neuropathy. LABORATORY DATA: WBC 9.0, RBC 4.90, hemoglobin 15.1, hematocrit 44.9, platelets 292. BUN 15, creatinine 1.2, glucose 107. PHYSICAL EXAMINATION: VITAL SIGNS: Temperature 98.1, pulse 60, respirations 17, blood pressure 160/66. EXTREMITIES: The right foot has a dry keratotic verruca with no drainage, bleeding or inflammation. There is no underlying fluctuance or crepitation or clinical signs of infection. The foot is warm with palpable dorsalis pedis and posterior tibial pulses. He has advanced venous insufficiency to both lower extremities with stasis dermatitis, trophic changes. No open lesions to either leg. I have previously amputated his left toes as well. IMPRESSION: Verruca to the right distal medial foot with history of ulceration. PLAN: I placed a bordered foam over the area for protection. No debridement is necessary at this time, nor there any signs of foot infection. I will follow up the patient after discharge in my office. <ELECTRONICALLY SIGNED> By: Varinder Santoro DPM 01/24/21 1409 1532 1656Varinder Santoro DPM /nt
== END 2021-01-21 14:27 | disposition home or self-care (01) | DRG 93 ==
LOC: M.ERS 19:47 → M.TBA-ER 21:38 → M.2W 22:21
PROVIDERS: Family Medicine; Personal Emergency Response Attendant; ADMIT Internal Medicine; ATTEND Internal Medicine
DX: G92 Toxic encephalopathy (principal); R27.0 Ataxia, unspecified; I10 Essential (primary) hypertension; E11.42 Type 2 diabetes mellitus with diabetic polyneuropathy; M41.9 Scoliosis, unspecified; G47.33 Obstructive sleep apnea (adult) (pediatric); T50.995A Adverse effect of other drugs, medicaments and biological substances, initial encounter; I25.10 Atherosclerotic heart disease of native coronary artery without angina pectoris; F17.210 Nicotine dependence, cigarettes, uncomplicated; K59.00 Constipation, unspecified; R51.9 Headache, unspecified; M54.9 Dorsalgia, unspecified; R25.1 Tremor, unspecified; S91.301A Unspecified open wound, right foot, initial encounter; X58.XXXA Exposure to other specified factors, initial encounter; Z20.822 Contact with and (suspected) exposure to COVID-19; Z98.1 Arthrodesis status; Z89.421 Acquired absence of other right toe(s); Y93.89 Activity, other specified; Z79.4 Long term (current) use of insulin; Z79.899 Other long term (current) drug therapy; Z88.8 Allergy status to other drugs, medicaments and biological substances; Y92.89 Other specified places as the place of occurrence of the external cause; Y99.8 Other external cause status

== ENCOUNTER 2021-01-28 21:51 | Inpatient (IN) | payer MEDICARE, BC ==
[~2021-01-28] VITALS: Ht 182.9 cm; Wt 103.4 kg
[~2021-01-28 21:51] MED LIST changes: +ELIQUIS2.5 MG PO; +TRULICITY0.75 MG/0. SUBQ
[2021-01-28 21:59] VITALS: BP 129/89
[2021-01-28 22:13] LABS: ABSOLUTE BASOPHILS 0.1 thou/uL (0.0-0.2); ABSOLUTE EOSINOPHILS 0.3 thou/uL (0.0-0.7); ABSOLUTE LYMPHOCYTES 1.9 thou/uL (0.8-5.3); ABSOLUTE NEUTROPHILS 7.4 thou/uL (1.6-8.1); BASOPHILS 1.1 %; EOSINOPHILS 2.4 %; HEMATOCRIT 44.2 % (42.0-52.0); LYMPHOCYTES 17.9 %; MCH 31.3 pg (26.0-34.0); MCHC 33.8 g/dL (28.0-37.0); MCV 92.3 fL (80.0-100.0); MPV 8.6 fl. (7.2-11.1); NUCLEATED RBCS 0 /100WBC; PLATELET COUNT* 263 thou/uL (150-400); POLYS 69.6 %; RBC 4.79 mil/uL (4.50-6.00); RDW-CV 15.2 % (10.5-14.5); WBC 10.6 thou/uL (4.0-11.0)
[2021-01-28 22:21] LABS: CALCIUM 8.5 mg/dL (8.5-10.1); CREATININE 1.3 mg/dL (0.6-1.3); POTASSIUM 4.1 mmol/L (3.5-5.1)
[2021-01-28 22:31] LABS: ALBUMIN 3.4 g/dL (3.4-5.0); TOTAL BILIRUBIN 0.9 mg/dL (<0.1-1.0); TOTAL PROTEIN 6.9 g/dL (6.4-8.2)
[2021-01-28] MEDS ORDERED: LASIX 40 MG TAB40 MG PO (22:38)
[2021-01-29] VITALS (9 sets, daily range): BP systolic 128–171; BP diastolic 45–80
[2021-01-29 00:26] LABS: URINE BILIRUBIN NEGATIVE (Negative); URINE BLOOD NEGATIVE (Negative); URINE CLARITY CLEAR; URINE COLOR YELLOW; URINE GLUCOSE-RANDOM NEGATIVE (Negative); URINE KETONES NEGATIVE (Negative); URINE LEUKOCYTES-REFLEX NEGATIVE (Negative); URINE NITRITE-REFLEX NEGATIVE (Negative); URINE PROTEIN NEGATIVE (Negative); URINE SPECIFIC GRAVITY <= 1.005 (1.005-1.030); URINE UROBILINOGEN 0.2 E.U./dl (0.2-1.0)
[2021-01-29 08:43] LABS: CHOLESTEROL 69 mg/dL (<200); HDL CHOLESTEROL 24 mg/dL (>40); LDL CHOLESTEROL 32 mg/dL (<100); TC:HDL 2.9 Ratio (Not establshd); TRIGLYCERIDE 66 mg/dL (<150); VLDL 13 mg/dL (<40)
[2021-01-29 08:45] LABS: SERUM ASSESSMENT Clear
--- NOTE | 2021-01-29 11:25 | EKG ---
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 : 1955 Requested By: Aurora Weiss Order Number: [id number] MD: Golden Crenshaw Measurements Intervals [place] Rate: 117 P: [place]: QRS: -20 QRSD: 116 T: 1 QT: 315 QTc: 440 Interpretive Statements Atrial flutter with predominant 2:1 AV block Nonspecific intraventricular conduction delay Nonspecific T abnormalities, inferior leads Compared to ECG 01/18/2021 19:54:16 ST (T wave) deviation now present Sinus rhythm no longer present Electronically Signed On 01-29-2021 11:25:05 CDT by Golden Crenshaw [email or web address] <ELECTRONICALLY SIGNED> By: Golden Crenshaw MD, FACC 01/29/21 1125 56 56 Golden Crenshaw MD, FAC /EPI
--- NOTE | 2021-01-29 13:11 | EKG ---
[place] [address] ELECTROCARDIOGRAM REPORT Name: NAVA SANTOS Room: [address] ADM IN [facility]#: [id number] Admission: 01/29/21 Attend Phys: Caden Blum, Discharge: Date of : 51 Date of Service: 01/28/212306 Report #: [id number] THIS REPORT FOR: //name// [facility] ED Test Date: 2021-01-28 Test Time: 23:07:26 Pat Name: NAVA SANTOS Department: Room: [facility] Gender: M Proc Tech: TB : 1955 Requested By: Aurora Weiss Order Number: [id number] MD: Golden Crenshaw Measurements Intervals [place] Rate: 66 P: [place]: QRS: -7 QRSD: 87 T: 54 QT: 477 QTc: 500 Interpretive Statements Atrial flutter with predominant 4:1 AV block Compared to ECG 01/28/2021 21:57:55 rate has slowed Electronically Signed On 01-29-2021 13:10:59 CDT by Golden Crenshaw [email or web address] <ELECTRONICALLY SIGNED> By: Golden Crenshaw MD, FAC 01/29/21 1310 06 06 Golden Crenshaw MD, [facility] /EPI
[2021-01-29 22:10] LABS: GLYCOHEMOGLOBIN (HGB A1C) 6.3 % (4.8-5.6)
[2021-01-30] VITALS (8 sets, daily range): BP systolic 138–171; BP diastolic 54–99
[2021-01-30 04:52] LABS: HEMATOCRIT 44.5 % (42.0-52.0); HEMOGLOBIN 14.9 gm/dL (14.0-18.0); MCH 30.5 pg (26.0-34.0); MCHC 33.4 g/dL (28.0-37.0); MCV 91.3 fL (80.0-100.0); MPV 8.6 fl. (7.2-11.1); RBC 4.87 mil/uL (4.50-6.00); RDW-CV 15.2 % (10.5-14.5); WBC 8.1 thou/uL (4.0-11.0)
[2021-01-30 05:13] LABS: ALBUMIN 3.1 g/dL (3.4-5.0); CALCIUM 8.6 mg/dL (8.5-10.1); CREATININE 1.2 mg/dL (0.6-1.3); MAGNESIUM 2.2 mg/dL (1.8-2.4); POTASSIUM 3.6 mmol/L (3.5-5.1); TOTAL PROTEIN 6.6 g/dL (6.4-8.2)
--- NOTE | 2021-01-30 15:21 | CON ---
[address] [address] CONSULTATION Name: NAVA SANTOS Tash Room: [address] IN .R.#: [id number] Admission: 01/29/21 Attend Phys: Caden Blum MD Discharge: Date of : 51 Report #: [id number] THIS REPORT FOR: cc: Yuliet Duarte Maggie M. DO ~ Golden Crenshaw MD [facility] DATE OF SERVICE: 01/29/2021 CARDIOLOGY CONSULTATION HISTORY OF PRESENT ILLNESS: The patient is a 65-year-old single white male who I was asked to see in the hospital today after he complained of lightheadedness. The patient has an extensive and complicated past medical history. He has a history of atrial arrhythmias, although has never been cardioverted. He has been chronically anticoagulated. He has been on sotalol for years. He apparently had a previous heart catheterization, both here at [facility] and apparently one [place] [facility] that showed no significant coronary artery disease. He has a history of peripheral neuropathy. He has had previous toe amputations on the right foot following a nonhealing sore. He has chronic back pain. He has a pain pump in place. Previous echocardiogram showed normal left ventricular function. I last saw him in the office last July. He is not very active because of previous toe amputation and chronic back pain. Recently, he complained of being lightheaded and dizzy. He does have occasional episodes where his heart rate will increase, but he has had no syncope. Denied any fever, vomiting, diarrhea or bleeding. He notes occasional sharp chest pain, but no prolonged chest heaviness or shortness of breath. He finally drove himself to the Emergency Room last night and was admitted for further evaluation and treatment. PAST MEDICAL HISTORY: Significant for previous cholecystectomy, hand surgery, back surgery, pain pump implantation. He has a history of diabetes, hyperlipidemia. CURRENT MEDICATIONS: Include Lipitor, baclofen, insulin, Eliquis, Cymbalta, Lasix every other day, sotalol 160 mg twice a day, Aldactone, Flomax. ALLERGIES: HE HAS PREVIOUS INTOLERANCE TO NIACIN. FAMILY HISTORY: Unknown since he is adopted. SOCIAL HISTORY: He is single. He is currently , lives in [place] by himself. He used to work at [employer]. [place]. He used to smoke a pack of cigarettes a day, now smokes cigars only. [place] [address] CONSULTATION Name: NAVA SANTOS Room: [address]#: [id number] Admission: 01/29/21 Attend Phys: Caden Blum MD Discharge: Date of : 51 Report #: [id number] REVIEW OF SYSTEMS: He apparently had a history of a TIA. No history of asthma. He has a history of hepatitis C that was treated in the past. He has chronic kidney disease. No cancer. No psychiatric illness. No chronic skin condition. PHYSICAL EXAMINATION: GENERAL: Revealed a middle-aged male, lying in bed. He appeared in no distress. VITAL SIGNS: His blood pressure is 140/70, pulse is 80. He was afebrile. HEENT: He was anicteric. Conjunctivae pink. Mucous membranes moist. NECK: Veins do not appear distended. No carotid bruits. CHEST: Clear to auscultation. CARDIOVASCULAR: Irregular rhythm. No significant murmur. ABDOMEN: Obese. EXTREMITIES: Had no pitting edema. Posterior tibial pulse 2+ bilaterally. SKIN: Cool and dry. NEUROLOGIC: Nonfocal. His ECG on admission showed what appeared to represent atrial flutter with a controlled ventricular response rate. His workup last night in the Emergency Room, he had a portable chest x-ray showing normal heart size, clear lung chavez. He actually had a CT scan of the head without contrast 10 days ago here at [facility] because of dizziness. It showed no significant abnormality. He actually had a CT scan of the chest using a PE protocol because of chest pain that was done in December that showed no pulmonary embolus. LABORATORY WORK: Last night, sodium 134, BUN 16, creatinine 1.3. His troponin is 0.06. BNP 1063. His white blood cell count 10.6, hemoglobin 15.0. He had a COVID antigen stat test last night that was negative. IMPRESSION AND RECOMMENDATIONS: 1. Lightheadedness. Reason unclear. The patient does not appear dehydrated. No evidence of anemia. 2. Atrial flutter. I would not recommend attempts at cardioversion. Rate controlled with beta-jorge. I would continue anticoagulation with Eliquis. 3. Diabetes. 4. Chronic back pain. The patient has a pain pump in place. 5. Hyperlipidemia. The patient is on a statin drug. 6. History of hepatitis [place] [address] CONSULTATION Name: NAVA SANTOS Room: [facility] IN M.R.#: [id number] Admission: 01/29/21 Attend Phys: Caden Blum MD Discharge: Date of : 51 Report #: [id number] 7. Previous tobacco abuse. 8. Peripheral neuropathy with previous toe amputation. <ELECTRONICALLY SIGNED> By: Golden Crenshaw MD, FACC 01/30/21 1521 0828 [id number] Crenshaw MD, FACC /nt
[2021-01-31 01:47] VITALS: BP 144/95
[2021-01-31 02:22] VITALS: BP 164/69
[2021-01-31 05:10] LABS: CREATININE 1.2 mg/dL (0.6-1.3); MAGNESIUM 2.2 mg/dL (1.8-2.4); POTASSIUM 3.6 mmol/L (3.5-5.1)
[2021-01-31 08:00] VITALS: BP 146/90
--- NOTE | 2021-01-31 09:38 | EKG ---
[place] [address] ELECTROCARDIOGRAM REPORT Name: NAVA SANTOS Room: [address] IN [facility].#: [id number] Admission: 01/29/21 Attend Phys: Caden Blum, Discharge: Date of : 51 Date of Service: 01/31/21 0144 Report #: [id number] THIS REPORT FOR: //name// [facility] Test Date: 2021-01-31 Test Time: 01:44:47 Pat Name: NAVA SANTOS Department: Room: [address] Gender: M Cellar Pumper: : 1955 Requested By: Blair Foster Order Number: [id number] Reading MD: Golden Crenshaw Measurements Intervals [place] Rate: 116 P: ID: QRS: -34 QRSD: 85 T: 52 QT: 364 QTc: 506 Interpretive Statements Atrial flutter Left ventricular hypertrophy Baseline wander in lead(s) V5 Compared to ECG 01/28/2021 23:07:26 Left ventricular hypertrophy now present rate increased Electronically Signed On 01-31-2021 9:38:29 CDT by Golden Crenshaw [email or web address] <ELECTRONICALLY SIGNED> By: Golden Crenshaw MD, FAC 01/31/21 0938 0144 0144 Golden Crenshaw MD, [facility] WITH [facility] /EPI
--- NOTE | 2021-01-31 09:41 | EKG ---
[place] [address] ELECTROCARDIOGRAM REPORT Name: NAVA SANTOS Room: [address] ADM IN [facility]#: [id number] Admission: 01/29/21 Attend Phys: Caden Blum, Discharge: Date of : 51 Date of Service: 01/31/2132 Report #: [id number] THIS REPORT FOR: //name// [facility] Test Date: 2021-01-31 Test Time: 09:32:40 Pat Name: NAVA SANTOS Department: Room: [address] Gender: M Technology Officer: SERGEY : 1955 Requested By: Blair Foster Order Number: [id number] Jennifer MD: Golden Crenshaw Measurements Intervals [place] Rate: 77 P: 21 IN: 190 QRS: 11 QRSD: 88 T: 55 QT: 422 QTc: 478 Interpretive Statements Sinus rhythm Multiple ventricular premature complexes Probable left atrial enlargement RSR' in V1 or V2, right VCD or RVH Minimal ST elevation, anterior leads Borderline prolonged QT interval Compared to ECG 01/31/2021 01:44:47 Ventricular premature complex(es) now present Atrial flutter no longer present Left ventricular hypertrophy no longer present Electronically Signed On 01-31-2021 9:40:58 CDT by Golden Crenshaw [email or web address] <ELECTRONICALLY SIGNED> By: Golden Crenshaw MD, [facility] 01/31/2140 1 1 Golden Crenshaw MD, [facility] /EPI
[2021-01-31 15:54] VITALS: BP 133/54
[2021-01-31 20:07] VITALS: BP 147/57
[2021-02-01] VITALS (7 sets, daily range): BP systolic 131–165; BP diastolic 61–79
--- NOTE | 2021-02-01 10:22 | EKG ---
[place] [address] ELECTROCARDIOGRAM REPORT Name: NAVA SANTOS Room: [address] ADM IN [facility]#: [id number] Admission: 01/29/21 Attend Phys: Caden Blum, Discharge: Date of : 51 Date of Service: 02/01/[address] Report #: [id number] THIS REPORT FOR: //name// [facility] Test Date: 2021-02-01 Test Time: 08:06:28 Pat Name: NAVA SANTOS Department: Room: [address] Gender: M Special Education Secretary: : 1955 Requested By: Golden Crenshaw Order Number: [id number] Jennifer MD: Golden Crenshaw Measurements Intervals [place] Rate: 55 P: 7 VA: 205 QRS: -12 QRSD: 98 T: 7 QT: 491 QTc: 470 Interpretive Statements Sinus bradycardia Compared to ECG 01/31/2021 09:32:40 Ventricular premature complex(es) no longer present Electronically Signed On 02-01-2021 10:22:01 CDT by Golden Crenshaw [email or web address] <ELECTRONICALLY SIGNED> By: Golden Crenshaw MD, [facility] 02/01/21 1022 0806 0806 Golden Crenshaw MD, [facility] /EPI
[2021-02-02 03:50] VITALS: BP 160/73
[2021-02-02 07:48] VITALS: BP 148/84
[2021-02-02] MEDS ORDERED: AUGMENTIN 500-1 EACH PO (10:01)
[2021-02-02] MEDS ORDERED: SOTALOL240 MG PO (10:01)
[2021-02-02 10:03] VITALS: BP 148/96
[2021-02-02 10:07] VITALS: BP 148/96
== END 2021-02-02 15:24 | disposition home or self-care (01) | DRG 863 ==
LOC: M.ERS 21:51 → M.TBA-ER 23:50 → M.ICU 01-29 01:26 → M.2W 01-29 08:25
PROVIDERS: Emergency Medicine; Internal Medicine; ADMIT Internal Medicine; ATTEND Internal Medicine
DX: T81.49XA Infection following a procedure, other surgical site, initial encounter (principal); D68.69 Other thrombophilia; I48.92 Unspecified atrial flutter; N13.8 Other obstructive and reflux uropathy; E11.621 Type 2 diabetes mellitus with foot ulcer; I48.91 Unspecified atrial fibrillation; Z20.822 Contact with and (suspected) exposure to COVID-19; I10 Essential (primary) hypertension; E78.5 Hyperlipidemia, unspecified; G89.29 Other chronic pain; M54.9 Dorsalgia, unspecified; E11.42 Type 2 diabetes mellitus with diabetic polyneuropathy; F17.210 Nicotine dependence, cigarettes, uncomplicated; J44.9 Chronic obstructive pulmonary disease, unspecified; I20.8 Other forms of angina pectoris; R33.8 Other retention of urine; Y83.8 Other surgical procedures as the cause of abnormal reaction of the patient, or of later complication, without mention of misadventure at the time of the procedure; N40.1 Benign prostatic hyperplasia with lower urinary tract symptoms; Z79.01 Long term (current) use of anticoagulants; Z89.421 Acquired absence of other right toe(s); Z86.73 Personal history of transient ischemic attack (TIA), and cerebral infarction without residual deficits; Z86.14 Personal history of Methicillin resistant Staphylococcus aureus infection; Z88.1 Allergy status to other antibiotic agents; Z90.49 Acquired absence of other specified parts of digestive tract; Z86.19 Personal history of other infectious and parasitic diseases; Y92.89 Other specified places as the place of occurrence of the external cause

== ENCOUNTER → 2021-02-07 | Outpatient (CLI) | payer MEDICARE, BC ==
[~2021-02-07] MED LIST changes: +AUGMENTIN 500-1 EACH PO; +LASIX 40 MG TAB40 MG PO; +SOTALOL240 MG PO
== END ==
LOC: M.WC 13:30
PROVIDERS: ATTEND Podiatrist Foot & Ankle Surgery
DX: E11.621 Type 2 diabetes mellitus with foot ulcer (principal); L97.521 Non-pressure chronic ulcer of other part of left foot limited to breakdown of skin; E11.42 Type 2 diabetes mellitus with diabetic polyneuropathy; I87.2 Venous insufficiency (chronic) (peripheral); B07.0 Plantar wart; I10 Essential (primary) hypertension; M19.90 Unspecified osteoarthritis, unspecified site; M41.9 Scoliosis, unspecified; I48.91 Unspecified atrial fibrillation; I25.10 Atherosclerotic heart disease of native coronary artery without angina pectoris; J44.9 Chronic obstructive pulmonary disease, unspecified; E66.01 Morbid (severe) obesity due to excess calories; G47.30 Sleep apnea, unspecified; G89.29 Other chronic pain; M54.9 Dorsalgia, unspecified; G47.00 Insomnia, unspecified; F32.9 Major depressive disorder, single episode, unspecified; F17.200 Nicotine dependence, unspecified, uncomplicated; Z86.14 Personal history of Methicillin resistant Staphylococcus aureus infection; Z86.73 Personal history of transient ischemic attack (TIA), and cerebral infarction without residual deficits; Z79.4 Long term (current) use of insulin; Z79.01 Long term (current) use of anticoagulants; Z79.899 Other long term (current) drug therapy; Z98.1 Arthrodesis status; Z90.49 Acquired absence of other specified parts of digestive tract

== ENCOUNTER → 2021-05-23 | Outpatient (CLI) | payer MEDICARE, BC | LOC: M.WC 09:39 | PROVIDERS: ATTEND Surgery | DX: E10.621 Type 1 diabetes mellitus with foot ulcer (principal); L97.513 Non-pressure chronic ulcer of other part of right foot with necrosis of muscle; I10 Essential (primary) hypertension; E66.01 Morbid (severe) obesity due to excess calories; G47.30 Sleep apnea, unspecified; I48.91 Unspecified atrial fibrillation; I25.10 Atherosclerotic heart disease of native coronary artery without angina pectoris; J44.9 Chronic obstructive pulmonary disease, unspecified; M19.90 Unspecified osteoarthritis, unspecified site; F32.9 Major depressive disorder, single episode, unspecified; Z86.73 Personal history of transient ischemic attack (TIA), and cerebral infarction without residual deficits; Z95.818 Presence of other cardiac implants and grafts; Z90.49 Acquired absence of other specified parts of digestive tract; Z89.421 Acquired absence of other right toe(s); Z79.4 Long term (current) use of insulin ==

== ENCOUNTER → 2021-05-30 | Outpatient (CLI) | payer MEDICARE, BC | LOC: M.WC 09:15 | PROVIDERS: ATTEND Surgery | DX: E10.621 Type 1 diabetes mellitus with foot ulcer (principal); L97.513 Non-pressure chronic ulcer of other part of right foot with necrosis of muscle; I10 Essential (primary) hypertension; E66.01 Morbid (severe) obesity due to excess calories; G47.30 Sleep apnea, unspecified; I48.91 Unspecified atrial fibrillation; I25.10 Atherosclerotic heart disease of native coronary artery without angina pectoris; J44.9 Chronic obstructive pulmonary disease, unspecified; M19.90 Unspecified osteoarthritis, unspecified site; F32.9 Major depressive disorder, single episode, unspecified; Z86.73 Personal history of transient ischemic attack (TIA), and cerebral infarction without residual deficits; Z95.818 Presence of other cardiac implants and grafts; Z90.49 Acquired absence of other specified parts of digestive tract; Z89.421 Acquired absence of other right toe(s); Z79.4 Long term (current) use of insulin; Z86.14 Personal history of Methicillin resistant Staphylococcus aureus infection ==

== ENCOUNTER → 2021-06-06 | Outpatient (CLI) | payer MEDICARE, BC | LOC: M.WC 10:26 | PROVIDERS: ATTEND Surgery | DX: E10.621 Type 1 diabetes mellitus with foot ulcer (principal); L97.513 Non-pressure chronic ulcer of other part of right foot with necrosis of muscle; I10 Essential (primary) hypertension; E66.01 Morbid (severe) obesity due to excess calories; G47.30 Sleep apnea, unspecified; I48.91 Unspecified atrial fibrillation; I25.10 Atherosclerotic heart disease of native coronary artery without angina pectoris; J44.9 Chronic obstructive pulmonary disease, unspecified; M19.90 Unspecified osteoarthritis, unspecified site; F32.9 Major depressive disorder, single episode, unspecified; Z86.73 Personal history of transient ischemic attack (TIA), and cerebral infarction without residual deficits; Z95.818 Presence of other cardiac implants and grafts; Z90.49 Acquired absence of other specified parts of digestive tract; Z89.421 Acquired absence of other right toe(s); Z79.4 Long term (current) use of insulin; Z86.14 Personal history of Methicillin resistant Staphylococcus aureus infection ==

== ENCOUNTER → 2021-06-21 | Outpatient (CLI) | payer MEDICARE, BC | LOC: M.WC 10:50 | PROVIDERS: ATTEND Family Medicine | DX: E10.621 Type 1 diabetes mellitus with foot ulcer (principal); L97.513 Non-pressure chronic ulcer of other part of right foot with necrosis of muscle; I10 Essential (primary) hypertension; E66.01 Morbid (severe) obesity due to excess calories; G47.30 Sleep apnea, unspecified; I48.91 Unspecified atrial fibrillation; I25.10 Atherosclerotic heart disease of native coronary artery without angina pectoris; J44.9 Chronic obstructive pulmonary disease, unspecified; M19.90 Unspecified osteoarthritis, unspecified site; F32.9 Major depressive disorder, single episode, unspecified; Z86.73 Personal history of transient ischemic attack (TIA), and cerebral infarction without residual deficits; Z95.818 Presence of other cardiac implants and grafts; Z90.49 Acquired absence of other specified parts of digestive tract; Z89.421 Acquired absence of other right toe(s); Z79.4 Long term (current) use of insulin; Z86.14 Personal history of Methicillin resistant Staphylococcus aureus infection ==

== ENCOUNTER → 2021-06-27 | Outpatient (CLI) | payer MEDICARE, BC | LOC: M.WC 10:38 | PROVIDERS: ATTEND Surgery | DX: E11.621 Type 2 diabetes mellitus with foot ulcer (principal); L97.513 Non-pressure chronic ulcer of other part of right foot with necrosis of muscle; B95.62 Methicillin resistant Staphylococcus aureus infection as the cause of diseases classified elsewhere; L84 Corns and callosities; I10 Essential (primary) hypertension; M41.9 Scoliosis, unspecified; I48.91 Unspecified atrial fibrillation; I25.10 Atherosclerotic heart disease of native coronary artery without angina pectoris; J44.9 Chronic obstructive pulmonary disease, unspecified; G47.30 Sleep apnea, unspecified; E66.01 Morbid (severe) obesity due to excess calories; F32.9 Major depressive disorder, single episode, unspecified; F17.200 Nicotine dependence, unspecified, uncomplicated; Z68.33 Body mass index [BMI] 33.0-33.9, adult; Z79.4 Long term (current) use of insulin; Z79.01 Long term (current) use of anticoagulants; Z86.73 Personal history of transient ischemic attack (TIA), and cerebral infarction without residual deficits; Z79.899 Other long term (current) drug therapy; Z98.890 Other specified postprocedural states ==

== ENCOUNTER → 2021-07-04 | Outpatient (CLI) | payer MEDICARE, BC | LOC: M.WC 09:40 | PROVIDERS: ATTEND Surgery | DX: E10.621 Type 1 diabetes mellitus with foot ulcer (principal); L97.513 Non-pressure chronic ulcer of other part of right foot with necrosis of muscle; L84 Corns and callosities; B95.62 Methicillin resistant Staphylococcus aureus infection as the cause of diseases classified elsewhere; I10 Essential (primary) hypertension; I48.91 Unspecified atrial fibrillation; I25.10 Atherosclerotic heart disease of native coronary artery without angina pectoris; J44.9 Chronic obstructive pulmonary disease, unspecified; G47.30 Sleep apnea, unspecified; E66.01 Morbid (severe) obesity due to excess calories; F32.9 Major depressive disorder, single episode, unspecified; F17.200 Nicotine dependence, unspecified, uncomplicated; Z68.33 Body mass index [BMI] 33.0-33.9, adult; Z79.4 Long term (current) use of insulin; Z79.01 Long term (current) use of anticoagulants; Z86.73 Personal history of transient ischemic attack (TIA), and cerebral infarction without residual deficits; Z95.818 Presence of other cardiac implants and grafts; Z89.421 Acquired absence of other right toe(s) ==

== ENCOUNTER → 2021-07-25 | Outpatient (CLI) | payer MEDICARE, BC | LOC: M.WC 10:23 | PROVIDERS: ATTEND Surgery | DX: E10.621 Type 1 diabetes mellitus with foot ulcer (principal); L97.513 Non-pressure chronic ulcer of other part of right foot with necrosis of muscle; L84 Corns and callosities; B95.62 Methicillin resistant Staphylococcus aureus infection as the cause of diseases classified elsewhere; I10 Essential (primary) hypertension; I48.91 Unspecified atrial fibrillation; I25.10 Atherosclerotic heart disease of native coronary artery without angina pectoris; J44.9 Chronic obstructive pulmonary disease, unspecified; G47.30 Sleep apnea, unspecified; E66.01 Morbid (severe) obesity due to excess calories; F32.9 Major depressive disorder, single episode, unspecified; F17.200 Nicotine dependence, unspecified, uncomplicated; Z68.33 Body mass index [BMI] 33.0-33.9, adult; Z79.4 Long term (current) use of insulin; Z79.01 Long term (current) use of anticoagulants; Z86.73 Personal history of transient ischemic attack (TIA), and cerebral infarction without residual deficits; Z95.818 Presence of other cardiac implants and grafts; Z89.421 Acquired absence of other right toe(s) ==

== ENCOUNTER → 2021-07-30 | Outpatient (CLI) | payer MEDICARE, BC | LOC: M.WC 13:47 | PROVIDERS: ATTEND Podiatrist Foot & Ankle Surgery | DX: E10.621 Type 1 diabetes mellitus with foot ulcer (principal); L97.513 Non-pressure chronic ulcer of other part of right foot with necrosis of muscle; L84 Corns and callosities; B95.62 Methicillin resistant Staphylococcus aureus infection as the cause of diseases classified elsewhere; B07.9 Viral wart, unspecified; I10 Essential (primary) hypertension; I48.91 Unspecified atrial fibrillation; I25.10 Atherosclerotic heart disease of native coronary artery without angina pectoris; J44.9 Chronic obstructive pulmonary disease, unspecified; G47.30 Sleep apnea, unspecified; E66.01 Morbid (severe) obesity due to excess calories; F32.9 Major depressive disorder, single episode, unspecified; F17.200 Nicotine dependence, unspecified, uncomplicated; Z68.33 Body mass index [BMI] 33.0-33.9, adult; Z86.73 Personal history of transient ischemic attack (TIA), and cerebral infarction without residual deficits; Z95.818 Presence of other cardiac implants and grafts; Z89.421 Acquired absence of other right toe(s) ==

== ENCOUNTER → 2021-08-06 | Outpatient (CLI) | payer MEDICARE, BC | LOC: M.WC 12:46 | PROVIDERS: ATTEND Podiatrist Foot & Ankle Surgery | DX: E10.621 Type 1 diabetes mellitus with foot ulcer (principal); L97.513 Non-pressure chronic ulcer of other part of right foot with necrosis of muscle; L84 Corns and callosities; B95.62 Methicillin resistant Staphylococcus aureus infection as the cause of diseases classified elsewhere; B07.9 Viral wart, unspecified; E66.01 Morbid (severe) obesity due to excess calories; G47.30 Sleep apnea, unspecified; I10 Essential (primary) hypertension; I48.91 Unspecified atrial fibrillation; I25.10 Atherosclerotic heart disease of native coronary artery without angina pectoris; J44.9 Chronic obstructive pulmonary disease, unspecified; M19.90 Unspecified osteoarthritis, unspecified site; F32.9 Major depressive disorder, single episode, unspecified; F17.200 Nicotine dependence, unspecified, uncomplicated; Z68.33 Body mass index [BMI] 33.0-33.9, adult; Z86.73 Personal history of transient ischemic attack (TIA), and cerebral infarction without residual deficits; Z95.818 Presence of other cardiac implants and grafts; Z89.421 Acquired absence of other right toe(s) ==

== ENCOUNTER → 2021-08-13 | Day surgery (SDC) | payer MEDICARE, BC ==
[~2021-08-13] MED LIST changes: +ATORVASTATIN CA20 MG PO; +BACLOFEN 10MG T10 MG PO; +DETROL2 M1 PO; +LINZESS145 MCG PO; +MELATONIN10 M3 PO; +MIRALAX119 GM PO; +PROSCAR 5MG TABL5 MG PO; +ZESTRIL5 MG PO
[2021-08-13 08:42] LABS: HEMATOCRIT 41.9 % (42.0-52.0); HEMOGLOBIN 14.4 gm/dL (14.0-18.0); MCH 31.7 pg (26.0-34.0); MCHC 34.3 g/dL (28.0-37.0); MCV 92.4 fL (80.0-100.0); MPV 7.6 fl. (7.2-11.1); RBC 4.54 mil/uL (4.50-6.00); RDW-CV 15.3 % (10.5-14.5); WBC 8.1 thou/uL (4.0-11.0)
[2021-08-13 08:45] LABS: CALCIUM 8.7 mg/dL (8.5-10.1); CREATININE 1.2 mg/dL (0.6-1.3); POTASSIUM 4.5 mmol/L (3.5-5.1)
--- NOTE | 2021-08-15 14:07 | PATH ---
[address] [address] PATHOLOGY RPT PROCEDURE Name: NAVA SANTOS Room: [facility].#: [id number] Admission: 08/13/21 Date of : 51 Discharge: Report #: [id number] Path Case #: [id number] [facility] Accession Number: [id number] . 01 Material submitted: . foot - RIGHT FOOT WART. Modifiers: right . 01 Clinical history: . NON-PRESSURE CHRONIC ULCER, TYPE 2 DIABETES, PROPHYLACTIC MEASURE. . 02 Diagnosis: Right foot wart: - Myrmecia (verruca plantaris). (NICK:christos; 08/14/2021) MBR 08/14/2021 1604 Local . 02 Electronically signed: . Corey Peraza MD, Pathologist NPI- [id number] . 01 Gross description: . The specimen is received in formalin, labeled "Nava Santos A, RT foot wart". It consists of an unoriented elliptical skin excision measuring 5.0 x 3.2 and excised to a depth of 1.0 cm. Identified on the epidermal surface is a barfield-brown, centrally ulcerated and friable, papillary lesion measuring 4.0 x 3.0 x 0.2 cm. The lesion measures less than 0.1 cm from the margin. The resection surface is inked black. Sectioning reveals white, hemorrhagic soft cut surfaces. Kindergarten Assistant sections are submitted in A1-A2. (MRF; 08/13/2021) MFE/MFE 08/14/2021 1603 Local . 02 Pathologist provided ICD-10: B07.0 . 02 CPT . 114774 Specimen Comment: A courtesy copy of this report has been sent to [phone] Specimen Comment: Report sent to Performed at: 01 [facility] [address] [place] [address] [address], [place], [place] [id number] MD Sabas Lopez MD Phone: [phone] Performed at: 02 [facility] [address] [place], [place] [id number] MD Corey Peraza MD Phone: [phone]
== END | disposition home or self-care (01) ==
LOC: M.SUR 06:34
PROVIDERS: Anesthesiology; ATTEND Podiatrist Foot & Ankle Surgery
DX: B07.0 Plantar wart (principal); I12.9 Hypertensive chronic kidney disease with stage 1 through stage 4 chronic kidney disease, or unspecified chronic kidney disease; E11.22 Type 2 diabetes mellitus with diabetic chronic kidney disease; N18.9 Chronic kidney disease, unspecified; I25.2 Old myocardial infarction; Z98.890 Other specified postprocedural states; Z79.899 Other long term (current) drug therapy; Z20.822 Contact with and (suspected) exposure to COVID-19; Z79.01 Long term (current) use of anticoagulants; Z79.4 Long term (current) use of insulin

== ENCOUNTER → 2021-08-20 | Outpatient (CLI) | payer MEDICARE, BC | LOC: M.WC 13:16 | PROVIDERS: ATTEND Podiatrist Foot & Ankle Surgery | DX: E10.621 Type 1 diabetes mellitus with foot ulcer (principal); L97.513 Non-pressure chronic ulcer of other part of right foot with necrosis of muscle; L84 Corns and callosities; E66.01 Morbid (severe) obesity due to excess calories; G47.30 Sleep apnea, unspecified; I10 Essential (primary) hypertension; I48.91 Unspecified atrial fibrillation; I25.10 Atherosclerotic heart disease of native coronary artery without angina pectoris; J44.9 Chronic obstructive pulmonary disease, unspecified; M19.90 Unspecified osteoarthritis, unspecified site; F32.9 Major depressive disorder, single episode, unspecified; F17.200 Nicotine dependence, unspecified, uncomplicated; Z68.33 Body mass index [BMI] 33.0-33.9, adult; Z86.73 Personal history of transient ischemic attack (TIA), and cerebral infarction without residual deficits; Z95.818 Presence of other cardiac implants and grafts; Z89.421 Acquired absence of other right toe(s) ==

== ENCOUNTER 2021-08-27 15:19 | Inpatient (IN) | payer MEDICARE, BC ==
[~2021-08-27] VITALS: Ht 182.9 cm; Wt 115.7 kg
--- NOTE | 2021-08-27 17:34 | NUR ---
PATIENT ADMITTED TO [facility] FROM WOUND CLINIC VIA WHEELCHAIR ACCOMPANIED BY STAFF. ADMITTED FOR INFECTION TO RIGHT FOOT. PATIENT WITH HISTORY OF DIABETES. WOUND TO RIGHT FOOT, UNABLE TO ASSESS DUE TO DRESSING. DRESSING APPLIED TODAY BY WOUND CLINIC. NO PICTURES DONE AT THIS TIME, DR. LEDESMA REQUEST NOT TO REMOVE NEW DRESSING. PATIENT WITH ALL FIVE TOES AMPUTATED AND PARTIAL FOOT PER PATIENT. 20G IV STARTED TO LEFT FOREARM, PATIENT TOLERATED WITHOUT COMPLICATIONS, SALINE LOCKED. PATIENT IS RESTING IN BED. ORIENTED TO ROOM AND FLOOR. BLOOD SUGAR MONITORED. ALL QUESTIONS AND CONCERNS ADDRESSED.
[2021-08-27 19:58] LABS: HEMATOCRIT 38.3 % (42.0-52.0); HEMOGLOBIN 13.2 gm/dL (14.0-18.0); MCH 31.9 pg (26.0-34.0); MCHC 34.6 g/dL (28.0-37.0); MCV 92.3 fL (80.0-100.0); MPV 7.1 fl. (7.2-11.1); RBC 4.15 mil/uL (4.50-6.00); RDW-CV 15.1 % (10.5-14.5); WBC 6.4 thou/uL (4.0-11.0)
[2021-08-27 20:08] LABS: CALCIUM 8.5 mg/dL (8.5-10.1); POTASSIUM 4.5 mmol/L (3.5-5.1)
[2021-08-27 20:15] VITALS: BP 147/60
--- NOTE | 2021-08-28 04:12 | NUR ---
PT A&O X 4. ON RA. MEDS GIVEN ORDERED. PAIN MANAGED WITH MS CONTIN. PT USES URINAL TO VOID. DRESSING TO RT FOOT C/D/I. CALL LIGHT WITHIN REACH. WILL CONTINUE TO MONITOR.
[2021-08-28 04:33] LABS: HEMATOCRIT 35.4 % (42.0-52.0); HEMOGLOBIN 12.3 gm/dL (14.0-18.0); MCH 31.7 pg (26.0-34.0); MCHC 34.8 g/dL (28.0-37.0); MCV 91.2 fL (80.0-100.0); MPV 7.4 fl. (7.2-11.1); RBC 3.88 mil/uL (4.50-6.00); RDW-CV 14.8 % (10.5-14.5); WBC 4.5 thou/uL (4.0-11.0)
[2021-08-28 04:54] LABS: CALCIUM 8.3 mg/dL (8.5-10.1); POTASSIUM 4.2 mmol/L (3.5-5.1)
[2021-08-28 07:52] VITALS: BP 125/56
--- NOTE | 2021-08-28 09:42 | NUR ---
WOUND NURSE: PATIENT SEEN TO ADDRESS DFU, FAILED POST OP TMA AND REMOVAL OF VERUCCA 08/13/21. PATIENT WITHOUT COMPLAINTS OF PAIN OR DISCOMFORT WHEN ASKED RELATED TO WOUND. MEASURES 6.5 X 15.5 X 0.5 CM. SUTURES ARE NO LONGER INTACT AND EDGES ARE NOT APPROXIMATED. WOUND BED WITH DARKER RED, NONGRANULATING TISSUE AND THERE IS SLIGHT ODOR ASSOCIATED WITH THE WOUND. NO SIGNIFICANT PERIWOUND REDNESS, WARMTH, OR EDEMA NOTED. REMOVED DRESSING, THEN CLEANSED WTIH SOAP AND WATER, RINSED, THEN PATTED DRY. PHOTOGRAPHED THE WOUND. APPLIED IODOSORB GEL TO THE WOUND BED, COVERED WITH DRAWTEX UNDER 2 ABD'S, THEN WRAPPED WITH KERLEX ROLL GAUZE UNDER DOLORES WRAP. PATIENT INSTRUCTED NOT TO BEAR WEIGHT AND USE POST OP SHOE WHEN OUT OF BED. ALSO INSTRUCTED ON NUTRITIONAL NEEDS, AND OTHER MEASURES TO PROMOTE HEALING AND PREVENT COMPLICATIONS. PATIENT PLANS TO GET HIS KNEE WALKER OUT OF STORAGE AND START USING IT. PATIENT STATES HE UNDERSTANDS THE INSTRUCTIONS PROVIDED TO HIM.
--- NOTE | 2021-08-28 14:31 | NUR ---
Pt is A&O. Resides at home. Independent. Pt wears home o2 and has a bipap through [facility]. Hx of [facility]. Hx of SNF. Goal is home at dc, ?HH. Wound care and podiatry following. Anticipate dc in a few days.
[2021-08-28 15:30] VITALS: BP 112/45
--- NOTE | 2021-08-28 17:36 | NUR ---
PATIENT RESTING IN BED. IV TO LEFT FOREARM, SALINE LOCKED, PATENT. BLOOD SUGARS MONITORED, INSULIN GIVEN NEEDED. C/O LEFT HIP PAIN. HDROCODONE GIVEN X1. DRESSING TO RIGHT FOOT, CHANGED TODAY BY DR. LEDESMA. BED IN LOW/LOCKED POSITION. CALL LIGHT WITHIN REACH. ALERT AND ORIENTED X4. NO QUESTIONS OR CONCERNS VOICED.
[2021-08-28 19:32] VITALS: BP 125/42
[2021-08-28 23:58] VITALS: BP 139/55
--- NOTE | 2021-08-29 06:09 | NUR ---
PT A&OX4, VSS ON ROOM AIR (BRADYCARDIA 49-51, ASYMPTOMATIC), IV SALINE LOCKED, UP WITH SBA. PRN PO PAIN MEDS REQUESTED AND GIVEN ORDERED. PT SLEEPING WELL.
[2021-08-29 07:11] LABS: GLYCOHEMOGLOBIN (HGB A1C) 7.1 % (4.8-5.6)
[2021-08-29 08:00] VITALS: BP 113/86
--- NOTE | 2021-08-29 10:33 | NUR ---
WOUND NURSE: PATIENT SEEN FOR DRESSING CHANGE TO RIGHT FOOT. PRESENTS WITHOUT CHANGE COMPARED TO YESTERDAY. CONTAINS BLACKEEND STAINED TISSUE IN THE DEHISSED WOUND BED. CONTAINS ODOR RESEMPLING BURNT TISSUE AND IODINE. THERE IS MINIMAL PERIWOUND REDNESS, WARMTH, OR INDURATION NOTED. NO SIGNIFICANT EDEMA. SCANT SANGUINOUS DRAINAGE WHEN CLEANSED WITH SOAP AND WATER, RINSED, THEN PATTED DRY. PEDAL PULSES ARE PALPABLE AND INTACT SKIN IS WARM AND PINK. APPLIED 1/4 STR DAKINS DAMPENED GAUZE UNDER DRY GAUZE, WRAPPED WITH KERLEX ROLL GAUZE UNDER DOLORES WRAP. SPOKE WITH DR. LEDESMA AND Q 6 HOUR DRESSING CHANGES APPROVED. PATIENT WAS PROVIDED WITH A NEW POSTOPERATIVE SHOE. INSTRUCTED ON MEASURES TO PROMOTE HEALING AND PREVENT COMPLICATIONS.
--- NOTE | 2021-08-29 12:51 | NUR ---
Wound care and podiatry following. Ivabx. Anticipate dc to home tomorrow, no needs.
--- NOTE | 2021-08-29 15:47 | NUR ---
DRESSING CHANGED TO RIGHT FOOT AT THIS TIME. DRESSING WITH SMALL AMOUNT OF SANGUINEOUS DRAINAGE. NEW DRESSING: THREE 4X4 GAUZES WITH SODIUM HYPOCHLORITE, THREE DRY 4X4 GAUZES, KERFLEX AND DOLORES BANDAGE APPLIED TO AREA. PATIENT TOLERATED PROCEDURE WITHOUT DIFFICULTIES.
--- NOTE | 2021-08-29 18:09 | NUR ---
PATIENT RESTING IN BED, WATCHING TV. ALERT AND ORIENTED X4. DRESSING CHANGED TO RIGHT FOOT ORDERED. BLOOD SUGARS MONITORED, INSULIN GIVEN NEEDED. IV TO LEFT HAND, SALINE LOCKED, PATENT. C/O BACK AND HIP PAIN, MORPHINE PO AND HYDROCODONE GIVEN X1. BED IN LOW/LOCKED POSITION. CALL LIGHT WITHIN REACH. NO QUESTIONS OR CONCERNS VOICED.
[2021-08-29 21:30] VITALS: BP 153/59
--- NOTE | 2021-08-30 05:00 | NUR ---
PT A&OX4, VSS ON ROOM AIR, IV SALINE LOCKED, DRSG TO RT FOOT CHANGED Q6H ORDERED, PRN PO PAIN MED REQUESTED 1X AND GIVEN ORDERED, NWB TO RLE MAINTAINED.
[2021-08-30 09:00] VITALS: BP 135/52
--- NOTE | 2021-08-30 14:34 | NUR ---
WOUND NURSE: ASSISTED DR. LEDESMA WITH PATIENT SHE DEBRIDED HIS WOUND AND CHANGED THE DRESSING. CONSENT, DEBRIDEMENT FORM, PHOTO DOCUMENTATION WERE ALL COMPLETED AND PLACED IN CHART.
--- NOTE | 2021-08-30 15:38 | NUR ---
Case and plan of care reviewed with physician each weekday during patient's length of stay. Plan is for .. CONTINUING WOUND CARE PER DOCTOR'S ORDERS
[2021-08-30 16:00] VITALS: BP 112/50
[2021-08-30 20:00] VITALS: BP 108/40
--- NOTE | 2021-08-30 21:30 | NUR ---
PT'S WRISTBAND SCANNED ALONG WITH 2100 MEDICATIONS ON THE ROLL AROUND COMPUTER AND WERE SAVED. MEDICATIONS WERE GIVEN TO PATIENT SCHEDULED. HOURS LATER IT WAS NOTED ON THE DESK COMPUTER THAT ALL 2100 MEDS WERE ONCE AGAIN "PINK" IF THEY WERE NOT GIVEN. MEDS WERE ATTEMPTED TO BE DOCUMENTED AT THE DESK WITHOUT SCANNING MEDS BUT BY PUTTING IN PATIENT NUMBER AND CHECKMARKING ALL MEDS THAT WERE GIVEN. A 'FROZEN' SCREEN APPEARED ON THE SCREEN THAT I HAD NEVER SEEN BEFORE. COWORKERS SAID THEY HAD THIS HAPPEN AND I NEEDED TO CALL HELP DESK. TWO CALLS WERE PLACED TO HELP DESK ATTEMPTING TO EXPLAIN WHAT HAPPENED AND ASKED THAT I BE CLOSED OUT OF THE ROLL AROUND COMPUTER. BOTH HELP DESK WORKERS SAID I WOULD HAVE TO GET SPECIAL APPROVAL FROM [employer] FOR SOMEONE TO COME IN TO TAKE CARE OF THIS THAT THEY WERE NOT ABLE TO HANDLE THIS OVER THE PHONE. MANY ATTEMPTS WERE MADE TO MAKE THEM UNDERSTAND MY NEEDS WITH NO SUCCESS. DOWNTIME MARS WERE PRINTED AND MEDICATIONS GIVEN WERE WRITTEN IN WITH PERTINENT INFORMATION AND INITIALED AND PLACED ON PT'S CHART.
[2021-08-31 04:29] LABS: HEMATOCRIT 38.9 % (42.0-52.0); HEMOGLOBIN 13.4 gm/dL (14.0-18.0); MCH 31.8 pg (26.0-34.0); MCHC 34.5 g/dL (28.0-37.0); MCV 92.1 fL (80.0-100.0); RBC 4.22 mil/uL (4.50-6.00); RDW-CV 15.1 % (10.5-14.5); WBC 5.9 thou/uL (4.0-11.0)
--- NOTE | 2021-08-31 04:44 | NUR ---
PATIENT SLEPT WELL DURING THIS SHIFT. PT GIVEN PAIN MEDICATION AT HS AND DENIES PAIN AT THIS TIME. DSG CHANGED ON RT FOOT DOCUMENTED. ANTIBIOTICS INFUSING PER DR ORDER. PT VOIDS PER URINAL AND AMBULATED WITH ASSIST TO BATHROOM FOR A BOWEL MOVEMENT. FREQUENTLY USED ITEMS AND CALL LIGHT WITHIN REACH. SIDERAILS UPX2 AND BED ALARM ON. WILL CONTINUE TO MONITOR.
[2021-08-31 04:45] LABS: CALCIUM 9.1 mg/dL (8.5-10.1); CREATININE 1.4 mg/dL (0.6-1.3); POTASSIUM 4.2 mmol/L (3.5-5.1)
[2021-08-31 08:30] VITALS: BP 119/48
[2021-08-31 15:27] VITALS: BP 137/56
--- NOTE | 2021-08-31 16:19 | NUR ---
Case and plan of care reviewed with physician each weekday during patient's length of stay. Plan is for .. WOUND CARE CONTINUING. CONTINUING IV ANTIBIOTICS
--- NOTE | 2021-08-31 19:43 | NUR ---
PATIENT RESTING IN BED. PATIENT IS UP STANDBY FOR URINAL. PATIENT HAS HAD COMPLAINTS OF BACK PAIN, TREATED ADEQUATELY WITH MEDICATION. PTIENT DENIES PAIN TO FOOT. DRESSING CHANGED THIS AFTERNOON. PATIENT HAS GOOD APPETITE. PATIENT DENIES ANY NEEDS AT THIS TIME. CALL LIGHT WITHIN REACH.
[2021-08-31 20:00] VITALS: BP 105/47
[2021-09-01 04:08] LABS: HEMATOCRIT 38.1 % (42.0-52.0); MCH 31.4 pg (26.0-34.0); MCHC 34.2 g/dL (28.0-37.0); MCV 91.9 fL (80.0-100.0); MPV 6.8 fl. (7.2-11.1); RBC 4.15 mil/uL (4.50-6.00)
[2021-09-01 04:27] LABS: CALCIUM 8.9 mg/dL (8.5-10.1); CREATININE 1.4 mg/dL (0.6-1.3); POTASSIUM 4.3 mmol/L (3.5-5.1)
[2021-09-01 07:53] VITALS: BP 157/48
[2021-09-01 16:18] VITALS: BP 122/50
[2021-09-01 20:00] VITALS: BP 133/64
[2021-09-02 04:44] LABS: HEMATOCRIT 36.5 % (42.0-52.0); HEMOGLOBIN 12.7 gm/dL (14.0-18.0); MCH 31.9 pg (26.0-34.0); MCHC 34.8 g/dL (28.0-37.0); MCV 91.6 fL (80.0-100.0); RBC 3.99 mil/uL (4.50-6.00); RDW-CV 14.7 % (10.5-14.5); WBC 4.7 thou/uL (4.0-11.0)
[2021-09-02 05:15] LABS: CALCIUM 8.6 mg/dL (8.5-10.1); CREATININE 1.3 mg/dL (0.6-1.3); POTASSIUM 3.9 mmol/L (3.5-5.1)
--- NOTE | 2021-09-02 06:53 | NUR ---
Alert and oriented x 4. He is up to the bedside with supervision to void per urinal. Rt foot has a acerwap dressing which was changed at 0100. He does have foot amputation and wounds. He had pain meds x 1. He has slept fairly well.
[2021-09-02 08:00] VITALS: BP 122/51
[2021-09-02 15:49] VITALS: BP 124/40
--- NOTE | 2021-09-02 16:10 | NUR ---
PATIENT UP WITH SBA TO BEDSIDE TO VOID PER URINAL. IV ABX INFUSED ORDERED. PRN MS CONTIN GIVEN X 1 THIS SHIFT. NO INSULIN REQUIRED THUS FAR. DRESSING CHANGED TO RIGHT FOOT PER WOUND CARE INSTRUCTIONS, FRIDAY PHOTO TAKEN. NPO AFTERNIGHT FOR RIGHT WOUND DEBRIDMENT. DR. HOLLOWAY WAS NOTIFIED THIS AM THAT LISINOPRIL AND SOTALOL HELD THIS AM DUE TO BRADYCARDIA.
[2021-09-02 20:00] VITALS: BP 139/49
[2021-09-03 04:20] LABS: HEMATOCRIT 37.2 % (42.0-52.0); MCH 31.9 pg (26.0-34.0); MCHC 34.8 g/dL (28.0-37.0); MCV 91.5 fL (80.0-100.0); MPV 6.9 fl. (7.2-11.1); RBC 4.07 mil/uL (4.50-6.00); RDW-CV 14.4 % (10.5-14.5); WBC 4.7 thou/uL (4.0-11.0)
[2021-09-03 04:35] LABS: CALCIUM 8.9 mg/dL (8.5-10.1); CREATININE 1.2 mg/dL (0.6-1.3); POTASSIUM 4.4 mmol/L (3.5-5.1)
[2021-09-03 06:40] VITALS: BP 139/49
--- NOTE | 2021-09-03 07:08 | NUR ---
Alert and oriented x 4. He has rt foot infection from toe amputation. Dressing to rt foot is a bulky acewrp drsg. He had MS contin for pain at . He has been NPO since midight for debridement of rt foot. Vitals are stable and he has slept intermittenly.
[2021-09-03 08:08] VITALS: BP 132/55
--- NOTE | 2021-09-03 08:54 | NUR ---
AM ASSESSMENT AND VITAL SIGNS COMPLETED DOCUMENTED. PT TAKEN TO PACU AT 0745 FOR DEBRIDEMENT OF RIGHT FOOT.
--- NOTE | 2021-09-03 11:51 | NUR ---
RECEIVED INSTRUCTION TO DISCONTINUE DRESSING CHANGES TO PATIENT'S RIGHT FOOT. THIS WAS DONE. SHE WILL MANAGE ALL FUTURE DRESSING CHANGES AT THIS TIME. PATIENT WAS TAKEN BACK TO SURGERY TODAY AND GRAFT PLACED PER DR. LEDESMA.
[2021-09-03 15:53] VITALS: BP 129/58
--- NOTE | 2021-09-03 17:46 | NUR ---
PT HAD AN I/D OF WOUND TO RIGHT FOOT/ AMPUTATION SITES. PT WILL CONTINUE WITH IV ABX. PRN MS CONTIN GIVEN PER PT'S REQUEST. PT USES THE URINAL AT THE BEDSIDE, NWB TO RLL. FALL PRECAUTIONS AND HOURLY ROUNDING CONTINUE.
[2021-09-03 19:30] VITALS: BP 143/56
--- NOTE | 2021-09-03 19:30 | NUR ---
RESTING QUIETLY IN BED. LEFT DOLORES WRAP ON LOWER EXTREMITY DRY/INTACT. CALL LIGHT WITHIN REACH.
[2021-09-04 00:15] VITALS: BP 138/58
[2021-09-04 04:09] VITALS: BP 140/75
--- NOTE | 2021-09-04 05:24 | NUR ---
RESTED QUIETLY. PAIN MEDICINE GIVEN FOR COMPLAINT OF BACK PAIN WITH RELIEF. REMAINS ON IV ABT. HOURLY ROUNDING IN PROGRESS.
[2021-09-04 07:34] VITALS: BP 132/51
[2021-09-04 09:07] VITALS: BP 132/51
[2021-09-04] MEDS ORDERED: LANTUS SUBQ (10:50)
[2021-09-04] MEDS ORDERED: SORINE 80 MG TA80 M1 PO (10:50)
--- NOTE | 2021-09-04 12:20 | NUR ---
Case and plan of care reviewed with physician each weekday during patient's length of stay. Plan is for discharge to SNF today. Spoke to pt about facility choices. [facility] would like to go back there. Call placed and VM left for bed availability. Referral info faxed. [facility] [phone]
--- NOTE | 2021-09-04 15:54 | NUR ---
PT TO DISCHARGE TO [facility]. REPORT CALLED. TRANSPORTATION TO [facility] PT AT 1700.
--- NOTE | 2021-09-04 17:14 | NUR ---
transportation here to transfer pt to [facility].
== END 2021-09-04 17:15 | DRG 464 ==
LOC: M.3W 15:19
PROVIDERS: Family Medicine; Internal Medicine; ADMIT Internal Medicine; ATTEND Internal Medicine
PROC: 0JBQ0ZZ Excision of Right Foot Subcutaneous Tissue and Fascia, Open Approach (ICD-10-PCS; principal; 2021-09-03)
PROC: 0HRMXK3 Replacement of Right Foot Skin with Nonautologous Tissue Substitute, Full Thickness, External Approach (ICD-10-PCS; principal; 2021-09-03)
PROC: 0JQQ0ZZ Repair Right Foot Subcutaneous Tissue and Fascia, Open Approach (ICD-10-PCS; principal; 2021-09-03)
DX: T87.81 Dehiscence of amputation stump (principal); L03.115 Cellulitis of right lower limb; E87.1 Hypo-osmolality and hyponatremia; Z20.822 Contact with and (suspected) exposure to COVID-19; E11.69 Type 2 diabetes mellitus with other specified complication; J44.9 Chronic obstructive pulmonary disease, unspecified; I10 Essential (primary) hypertension; I48.91 Unspecified atrial fibrillation; I25.10 Atherosclerotic heart disease of native coronary artery without angina pectoris; I48.0 Paroxysmal atrial fibrillation; E66.9 Obesity, unspecified; M41.9 Scoliosis, unspecified; Y83.8 Other surgical procedures as the cause of abnormal reaction of the patient, or of later complication, without mention of misadventure at the time of the procedure; Z86.73 Personal history of transient ischemic attack (TIA), and cerebral infarction without residual deficits; Z79.01 Long term (current) use of anticoagulants; Z68.34 Body mass index [BMI] 34.0-34.9, adult; Z89.421 Acquired absence of other right toe(s); I25.2 Old myocardial infarction; Z23 Encounter for immunization

== ENCOUNTER → 2021-08-27 | Outpatient (CLI) | payer MEDICARE, BC | LOC: M.WC 13:45 | PROVIDERS: ATTEND Podiatrist Foot & Ankle Surgery | DX: T87.81 Dehiscence of amputation stump (principal); E11.621 Type 2 diabetes mellitus with foot ulcer; L97.513 Non-pressure chronic ulcer of other part of right foot with necrosis of muscle; L84 Corns and callosities; E66.01 Morbid (severe) obesity due to excess calories; G47.30 Sleep apnea, unspecified; I10 Essential (primary) hypertension; I48.91 Unspecified atrial fibrillation; I25.10 Atherosclerotic heart disease of native coronary artery without angina pectoris; J44.9 Chronic obstructive pulmonary disease, unspecified; M19.90 Unspecified osteoarthritis, unspecified site; F32.9 Major depressive disorder, single episode, unspecified; F17.200 Nicotine dependence, unspecified, uncomplicated; Z68.33 Body mass index [BMI] 33.0-33.9, adult; Z86.73 Personal history of transient ischemic attack (TIA), and cerebral infarction without residual deficits; Z95.818 Presence of other cardiac implants and grafts; Z89.421 Acquired absence of other right toe(s) ==

== ENCOUNTER → 2021-09-17 | Outpatient (CLI) | payer MEDICARE, BC ==
[~2021-09-17] MED LIST changes: +LANTUS SUBQ
== END ==
LOC: M.WC 13:29
PROVIDERS: ATTEND Podiatrist Foot & Ankle Surgery
DX: T87.81 Dehiscence of amputation stump (principal); E11.621 Type 2 diabetes mellitus with foot ulcer; L97.513 Non-pressure chronic ulcer of other part of right foot with necrosis of muscle; M54.9 Dorsalgia, unspecified; I10 Essential (primary) hypertension; M19.90 Unspecified osteoarthritis, unspecified site; M41.9 Scoliosis, unspecified; I48.91 Unspecified atrial fibrillation; I25.10 Atherosclerotic heart disease of native coronary artery without angina pectoris; J44.9 Chronic obstructive pulmonary disease, unspecified; G47.00 Insomnia, unspecified; E66.01 Morbid (severe) obesity due to excess calories; G89.29 Other chronic pain; G47.30 Sleep apnea, unspecified; F32.9 Major depressive disorder, single episode, unspecified; F17.200 Nicotine dependence, unspecified, uncomplicated; Z68.33 Body mass index [BMI] 33.0-33.9, adult; Z86.73 Personal history of transient ischemic attack (TIA), and cerebral infarction without residual deficits; Z79.01 Long term (current) use of anticoagulants; Z79.4 Long term (current) use of insulin; Z79.899 Other long term (current) drug therapy; Y83.5 Amputation of limb(s) as the cause of abnormal reaction of the patient, or of later complication, without mention of misadventure at the time of the procedure

== ENCOUNTER → 2021-09-24 | Outpatient (CLI) | payer MEDICARE, BC | LOC: M.WC 13:24 | PROVIDERS: ATTEND Podiatrist Foot & Ankle Surgery | DX: T87.81 Dehiscence of amputation stump (principal); E11.621 Type 2 diabetes mellitus with foot ulcer; L97.513 Non-pressure chronic ulcer of other part of right foot with necrosis of muscle; B95.62 Methicillin resistant Staphylococcus aureus infection as the cause of diseases classified elsewhere; G89.29 Other chronic pain; M54.9 Dorsalgia, unspecified; M62.48 Contracture of muscle, other site; K64.9 Unspecified hemorrhoids; M19.90 Unspecified osteoarthritis, unspecified site; M41.9 Scoliosis, unspecified; I48.91 Unspecified atrial fibrillation; I25.10 Atherosclerotic heart disease of native coronary artery without angina pectoris; J44.9 Chronic obstructive pulmonary disease, unspecified; G47.30 Sleep apnea, unspecified; G47.00 Insomnia, unspecified; E66.01 Morbid (severe) obesity due to excess calories; F32.9 Major depressive disorder, single episode, unspecified; F17.200 Nicotine dependence, unspecified, uncomplicated; Z68.33 Body mass index [BMI] 33.0-33.9, adult; Z86.73 Personal history of transient ischemic attack (TIA), and cerebral infarction without residual deficits; Z98.890 Other specified postprocedural states; Z79.4 Long term (current) use of insulin; Z79.899 Other long term (current) drug therapy; Y83.5 Amputation of limb(s) as the cause of abnormal reaction of the patient, or of later complication, without mention of misadventure at the time of the procedure ==

== ENCOUNTER → 2021-10-01 | Outpatient (CLI) | payer MEDICARE, BC | LOC: M.WC 13:26 | PROVIDERS: ATTEND Podiatrist Foot & Ankle Surgery | DX: T87.81 Dehiscence of amputation stump (principal); E11.621 Type 2 diabetes mellitus with foot ulcer; L97.513 Non-pressure chronic ulcer of other part of right foot with necrosis of muscle; B95.62 Methicillin resistant Staphylococcus aureus infection as the cause of diseases classified elsewhere; G89.29 Other chronic pain; M54.9 Dorsalgia, unspecified; M62.48 Contracture of muscle, other site; K64.9 Unspecified hemorrhoids; M19.90 Unspecified osteoarthritis, unspecified site; M41.9 Scoliosis, unspecified; I48.91 Unspecified atrial fibrillation; I25.10 Atherosclerotic heart disease of native coronary artery without angina pectoris; J44.9 Chronic obstructive pulmonary disease, unspecified; G47.30 Sleep apnea, unspecified; G47.00 Insomnia, unspecified; E66.01 Morbid (severe) obesity due to excess calories; F32.9 Major depressive disorder, single episode, unspecified; F17.200 Nicotine dependence, unspecified, uncomplicated; Z68.33 Body mass index [BMI] 33.0-33.9, adult; Z86.73 Personal history of transient ischemic attack (TIA), and cerebral infarction without residual deficits; Z79.4 Long term (current) use of insulin; Y83.5 Amputation of limb(s) as the cause of abnormal reaction of the patient, or of later complication, without mention of misadventure at the time of the procedure ==

== ENCOUNTER → 2021-10-08 | Outpatient (CLI) | payer MEDICARE, BC | LOC: M.WC 12:56 | PROVIDERS: ATTEND Podiatrist Foot & Ankle Surgery | DX: T87.81 Dehiscence of amputation stump (principal); E11.621 Type 2 diabetes mellitus with foot ulcer; L97.512 Non-pressure chronic ulcer of other part of right foot with fat layer exposed; B95.62 Methicillin resistant Staphylococcus aureus infection as the cause of diseases classified elsewhere; G89.29 Other chronic pain; M54.9 Dorsalgia, unspecified; M62.48 Contracture of muscle, other site; M19.90 Unspecified osteoarthritis, unspecified site; M41.9 Scoliosis, unspecified; I48.91 Unspecified atrial fibrillation; I25.10 Atherosclerotic heart disease of native coronary artery without angina pectoris; J44.9 Chronic obstructive pulmonary disease, unspecified; G47.30 Sleep apnea, unspecified; G47.00 Insomnia, unspecified; E66.01 Morbid (severe) obesity due to excess calories; F32.9 Major depressive disorder, single episode, unspecified; F17.200 Nicotine dependence, unspecified, uncomplicated; Z68.33 Body mass index [BMI] 33.0-33.9, adult; Z86.73 Personal history of transient ischemic attack (TIA), and cerebral infarction without residual deficits; Z79.4 Long term (current) use of insulin; Y83.5 Amputation of limb(s) as the cause of abnormal reaction of the patient, or of later complication, without mention of misadventure at the time of the procedure ==

== ENCOUNTER → 2021-10-15 | Outpatient (CLI) | payer MEDICARE, BC | LOC: M.WC 13:12 | PROVIDERS: ATTEND Podiatrist Foot & Ankle Surgery | DX: T87.81 Dehiscence of amputation stump (principal); E11.621 Type 2 diabetes mellitus with foot ulcer; L97.512 Non-pressure chronic ulcer of other part of right foot with fat layer exposed; B95.62 Methicillin resistant Staphylococcus aureus infection as the cause of diseases classified elsewhere; G89.29 Other chronic pain; M54.9 Dorsalgia, unspecified; M62.48 Contracture of muscle, other site; M19.90 Unspecified osteoarthritis, unspecified site; M41.9 Scoliosis, unspecified; I48.91 Unspecified atrial fibrillation; I25.10 Atherosclerotic heart disease of native coronary artery without angina pectoris; J44.9 Chronic obstructive pulmonary disease, unspecified; G47.30 Sleep apnea, unspecified; G47.00 Insomnia, unspecified; E66.01 Morbid (severe) obesity due to excess calories; F32.9 Major depressive disorder, single episode, unspecified; F17.200 Nicotine dependence, unspecified, uncomplicated; Z68.33 Body mass index [BMI] 33.0-33.9, adult; Z86.73 Personal history of transient ischemic attack (TIA), and cerebral infarction without residual deficits; Z79.4 Long term (current) use of insulin; Y83.5 Amputation of limb(s) as the cause of abnormal reaction of the patient, or of later complication, without mention of misadventure at the time of the procedure ==

== ENCOUNTER → 2021-11-05 | Outpatient (CLI) | payer MEDICARE, BC | LOC: M.WC 13:51 | PROVIDERS: ATTEND Podiatrist Foot & Ankle Surgery | DX: T87.81 Dehiscence of amputation stump (principal); E11.621 Type 2 diabetes mellitus with foot ulcer; L97.512 Non-pressure chronic ulcer of other part of right foot with fat layer exposed; B95.62 Methicillin resistant Staphylococcus aureus infection as the cause of diseases classified elsewhere; I10 Essential (primary) hypertension; M19.90 Unspecified osteoarthritis, unspecified site; M41.9 Scoliosis, unspecified; I48.91 Unspecified atrial fibrillation; I25.10 Atherosclerotic heart disease of native coronary artery without angina pectoris; J44.9 Chronic obstructive pulmonary disease, unspecified; G47.30 Sleep apnea, unspecified; G47.00 Insomnia, unspecified; E66.01 Morbid (severe) obesity due to excess calories; F17.200 Nicotine dependence, unspecified, uncomplicated; Z86.73 Personal history of transient ischemic attack (TIA), and cerebral infarction without residual deficits; Z79.01 Long term (current) use of anticoagulants; Z98.890 Other specified postprocedural states; Z79.4 Long term (current) use of insulin; Z79.899 Other long term (current) drug therapy; Y83.5 Amputation of limb(s) as the cause of abnormal reaction of the patient, or of later complication, without mention of misadventure at the time of the procedure ==

== ENCOUNTER → 2021-11-19 | Outpatient (CLI) | payer MEDICARE, BC | LOC: M.WC 11-12 14:00 | PROVIDERS: ATTEND Internal Medicine | DX: T87.81 Dehiscence of amputation stump (principal); E11.621 Type 2 diabetes mellitus with foot ulcer; L97.512 Non-pressure chronic ulcer of other part of right foot with fat layer exposed; B95.62 Methicillin resistant Staphylococcus aureus infection as the cause of diseases classified elsewhere; I10 Essential (primary) hypertension; M19.90 Unspecified osteoarthritis, unspecified site; M41.9 Scoliosis, unspecified; I48.91 Unspecified atrial fibrillation; I25.10 Atherosclerotic heart disease of native coronary artery without angina pectoris; J44.9 Chronic obstructive pulmonary disease, unspecified; G47.30 Sleep apnea, unspecified; G47.00 Insomnia, unspecified; E66.01 Morbid (severe) obesity due to excess calories; F32.9 Major depressive disorder, single episode, unspecified; F17.200 Nicotine dependence, unspecified, uncomplicated; Z95.818 Presence of other cardiac implants and grafts; Z86.73 Personal history of transient ischemic attack (TIA), and cerebral infarction without residual deficits; Z79.01 Long term (current) use of anticoagulants; Z79.4 Long term (current) use of insulin; Y83.5 Amputation of limb(s) as the cause of abnormal reaction of the patient, or of later complication, without mention of misadventure at the time of the procedure ==

== ENCOUNTER → 2021-11-26 | Outpatient (CLI) | payer MEDICARE, BC | LOC: M.WC 13:42 | PROVIDERS: ATTEND Podiatrist Foot & Ankle Surgery | DX: T87.81 Dehiscence of amputation stump (principal); E11.621 Type 2 diabetes mellitus with foot ulcer; L97.512 Non-pressure chronic ulcer of other part of right foot with fat layer exposed; B95.62 Methicillin resistant Staphylococcus aureus infection as the cause of diseases classified elsewhere; G89.29 Other chronic pain; M54.9 Dorsalgia, unspecified; I10 Essential (primary) hypertension; M19.90 Unspecified osteoarthritis, unspecified site; M41.9 Scoliosis, unspecified; I48.91 Unspecified atrial fibrillation; I25.10 Atherosclerotic heart disease of native coronary artery without angina pectoris; J44.9 Chronic obstructive pulmonary disease, unspecified; G47.30 Sleep apnea, unspecified; E66.01 Morbid (severe) obesity due to excess calories; F32.9 Major depressive disorder, single episode, unspecified; F17.200 Nicotine dependence, unspecified, uncomplicated; Z68.33 Body mass index [BMI] 33.0-33.9, adult; Z86.73 Personal history of transient ischemic attack (TIA), and cerebral infarction without residual deficits; Z79.4 Long term (current) use of insulin; Z79.899 Other long term (current) drug therapy; Z98.890 Other specified postprocedural states; Y83.5 Amputation of limb(s) as the cause of abnormal reaction of the patient, or of later complication, without mention of misadventure at the time of the procedure ==

== ENCOUNTER → 2021-12-03 | Outpatient (CLI) | payer MEDICARE, BC | LOC: M.WC 13:40 | PROVIDERS: ATTEND Podiatrist Foot & Ankle Surgery | DX: T87.81 Dehiscence of amputation stump (principal); E11.621 Type 2 diabetes mellitus with foot ulcer; L97.512 Non-pressure chronic ulcer of other part of right foot with fat layer exposed; B95.62 Methicillin resistant Staphylococcus aureus infection as the cause of diseases classified elsewhere; G89.29 Other chronic pain; M54.9 Dorsalgia, unspecified; I10 Essential (primary) hypertension; M19.90 Unspecified osteoarthritis, unspecified site; M41.9 Scoliosis, unspecified; I48.91 Unspecified atrial fibrillation; I25.10 Atherosclerotic heart disease of native coronary artery without angina pectoris; J44.9 Chronic obstructive pulmonary disease, unspecified; G47.30 Sleep apnea, unspecified; E66.01 Morbid (severe) obesity due to excess calories; F32.9 Major depressive disorder, single episode, unspecified; F17.200 Nicotine dependence, unspecified, uncomplicated; Z68.33 Body mass index [BMI] 33.0-33.9, adult; Z86.73 Personal history of transient ischemic attack (TIA), and cerebral infarction without residual deficits; Z79.4 Long term (current) use of insulin; Y83.5 Amputation of limb(s) as the cause of abnormal reaction of the patient, or of later complication, without mention of misadventure at the time of the procedure ==

== ENCOUNTER → 2021-12-10 | Outpatient (CLI) | payer MEDICARE, BC | LOC: M.WC 13:37 | PROVIDERS: ATTEND Podiatrist Foot & Ankle Surgery | DX: T87.81 Dehiscence of amputation stump (principal); E11.621 Type 2 diabetes mellitus with foot ulcer; L97.512 Non-pressure chronic ulcer of other part of right foot with fat layer exposed; B95.62 Methicillin resistant Staphylococcus aureus infection as the cause of diseases classified elsewhere; G89.29 Other chronic pain; M54.9 Dorsalgia, unspecified; I10 Essential (primary) hypertension; M19.90 Unspecified osteoarthritis, unspecified site; M41.9 Scoliosis, unspecified; I48.91 Unspecified atrial fibrillation; I25.10 Atherosclerotic heart disease of native coronary artery without angina pectoris; J44.9 Chronic obstructive pulmonary disease, unspecified; G47.30 Sleep apnea, unspecified; E66.01 Morbid (severe) obesity due to excess calories; F32.9 Major depressive disorder, single episode, unspecified; F17.200 Nicotine dependence, unspecified, uncomplicated; Z68.33 Body mass index [BMI] 33.0-33.9, adult; Z86.73 Personal history of transient ischemic attack (TIA), and cerebral infarction without residual deficits; Z79.4 Long term (current) use of insulin; Y83.5 Amputation of limb(s) as the cause of abnormal reaction of the patient, or of later complication, without mention of misadventure at the time of the procedure ==

== ENCOUNTER → 2021-12-17 | Outpatient (CLI) | payer MEDICARE, BC | LOC: M.WC 13:27 | PROVIDERS: ATTEND Podiatrist Foot & Ankle Surgery | DX: T87.81 Dehiscence of amputation stump (principal); E11.621 Type 2 diabetes mellitus with foot ulcer; L97.512 Non-pressure chronic ulcer of other part of right foot with fat layer exposed; L84 Corns and callosities; B95.62 Methicillin resistant Staphylococcus aureus infection as the cause of diseases classified elsewhere; G89.29 Other chronic pain; I10 Essential (primary) hypertension; I48.91 Unspecified atrial fibrillation; I25.10 Atherosclerotic heart disease of native coronary artery without angina pectoris; G47.30 Sleep apnea, unspecified; E66.01 Morbid (severe) obesity due to excess calories; J44.9 Chronic obstructive pulmonary disease, unspecified; M54.9 Dorsalgia, unspecified; M19.90 Unspecified osteoarthritis, unspecified site; F41.9 Anxiety disorder, unspecified; F32.9 Major depressive disorder, single episode, unspecified; F17.200 Nicotine dependence, unspecified, uncomplicated; Z68.33 Body mass index [BMI] 33.0-33.9, adult; Z86.73 Personal history of transient ischemic attack (TIA), and cerebral infarction without residual deficits; Z79.4 Long term (current) use of insulin; Y83.5 Amputation of limb(s) as the cause of abnormal reaction of the patient, or of later complication, without mention of misadventure at the time of the procedure ==

== ENCOUNTER → 2021-12-31 | Outpatient (CLI) | payer MEDICARE, BC | LOC: M.WC 13:43 | PROVIDERS: ATTEND Podiatrist Foot & Ankle Surgery | DX: T87.81 Dehiscence of amputation stump (principal); E11.621 Type 2 diabetes mellitus with foot ulcer; L97.512 Non-pressure chronic ulcer of other part of right foot with fat layer exposed; B95.62 Methicillin resistant Staphylococcus aureus infection as the cause of diseases classified elsewhere; G89.29 Other chronic pain; M54.9 Dorsalgia, unspecified; L84 Corns and callosities; I10 Essential (primary) hypertension; M19.90 Unspecified osteoarthritis, unspecified site; M41.9 Scoliosis, unspecified; I48.91 Unspecified atrial fibrillation; I25.10 Atherosclerotic heart disease of native coronary artery without angina pectoris; G47.00 Insomnia, unspecified; J44.9 Chronic obstructive pulmonary disease, unspecified; G47.30 Sleep apnea, unspecified; E66.01 Morbid (severe) obesity due to excess calories; F17.200 Nicotine dependence, unspecified, uncomplicated; Z68.33 Body mass index [BMI] 33.0-33.9, adult; Z86.73 Personal history of transient ischemic attack (TIA), and cerebral infarction without residual deficits; Z79.4 Long term (current) use of insulin; Z79.01 Long term (current) use of anticoagulants; Z79.899 Other long term (current) drug therapy; Z98.890 Other specified postprocedural states; Y83.5 Amputation of limb(s) as the cause of abnormal reaction of the patient, or of later complication, without mention of misadventure at the time of the procedure ==

== ENCOUNTER → 2022-01-14 | Outpatient (CLI) | payer MEDICARE, BC | LOC: M.WC 11:08 | PROVIDERS: ATTEND Podiatrist Foot & Ankle Surgery | DX: T87.81 Dehiscence of amputation stump (principal); E11.621 Type 2 diabetes mellitus with foot ulcer; L97.512 Non-pressure chronic ulcer of other part of right foot with fat layer exposed; L84 Corns and callosities; B95.62 Methicillin resistant Staphylococcus aureus infection as the cause of diseases classified elsewhere; G89.29 Other chronic pain; M54.9 Dorsalgia, unspecified; I10 Essential (primary) hypertension; M19.90 Unspecified osteoarthritis, unspecified site; M41.9 Scoliosis, unspecified; I48.91 Unspecified atrial fibrillation; I25.10 Atherosclerotic heart disease of native coronary artery without angina pectoris; G47.00 Insomnia, unspecified; J44.9 Chronic obstructive pulmonary disease, unspecified; G47.30 Sleep apnea, unspecified; E66.01 Morbid (severe) obesity due to excess calories; F17.200 Nicotine dependence, unspecified, uncomplicated; Z68.33 Body mass index [BMI] 33.0-33.9, adult; Z86.73 Personal history of transient ischemic attack (TIA), and cerebral infarction without residual deficits; Z79.4 Long term (current) use of insulin; Z79.01 Long term (current) use of anticoagulants; Y83.5 Amputation of limb(s) as the cause of abnormal reaction of the patient, or of later complication, without mention of misadventure at the time of the procedure ==